=== PATIENT | male | born 1945 | race Caucasian/White ===

== ENCOUNTER → 2016-09-28 | Outpatient (CLI) | payer MEDICARE ==
[2016-09-28 09:06] LABS: EKG EKG PERFORMED
[2016-09-28 09:23] LABS: Basophils % (A) 0 %; CHCM 33.8; Eosinophils # (A) 0.2 k/uL (0-0.7); Eosinophils % (A) 3 %; HCT 39.2 % (39.0-53.0); HDW 2.69; Luc # (Auto) 0.17; Luc % (Auto) 3; Lymphocytes # (A) 1.4 k/uL (1.0-4.8); Lymphocytes % (A) 24 %; MCH 30.7 pg (25.0-35.0); MCHC 33.3 g/dL (31.0-37.0); MCV 92.3 fL (80.0-100.0); Monocytes # (A) 0.3 k/uL (0-1.0); Monocytes % (A) 5 %; Neutrophils # (A) 3.6 k/uL (1.3-7.7); Neutrophils % (A) 65 %; RBC 4.24 m/uL (4.30-5.90); RDW 13.2 % (11.5-15.5); WBC 5.6 k/uL (3.8-10.6); WBC (Perox) 5.27
[2016-09-28 09:24] LABS: INR 1.2 (<1.1); Partial Thromboplastin Time 24.8 sec (22.0-30.0); Prothrombin Time 11.9 sec (9.0-12.0)
[2016-09-28 09:33] LABS: ALT 27 U/L (21-72); AST 20 U/L (17-59); Alkaline Phosphatase 52 U/L (38-126); Anion Gap 13 mmol/L; Blood Urea Nitrogen 24 mg/dL (9-20); Calcium 9.2 mg/dL (8.4-10.2); Carbon Dioxide 22 mmol/L (22-30); Chloride 108 mmol/L (98-107); Cholesterol 185 mg/dL (<200); Glucose 134 mg/dL (74-99); HDL Cholesterol 37 mg/dL (40-60); Non-African American GFR(MDRD) >60 (>60 ml/min/1.73 sqM); Sodium 143 mmol/L (137-145); Total Bilirubin 0.7 mg/dL (0.2-1.3); Total Protein 7.7 g/dL (6.3-8.2); Triglycerides 144 mg/dL (<150)
[2016-09-28 09:49] LABS: Appearance,Urine Cloudy (Clear); Bilirubin,Urine Negative (Negative); Glucose,Urine (UA) Negative (Negative); Ketones,Urine Negative (Negative); Leukocyte Esterase,Urine Large (Negative); Mucus,Urine Rare /hpf; Nitrite,Urine Negative (Negative); PH, Urine 5.5 (5.0-8.0); Particle Count 1794; Protein,Urine Trace (Negative); RBC,Urine 15 /hpf (0-5); Specific Gravity,Urine 1.019 (1.001-1.035); UA Billing (MACRO vs. MICRO) MICRO; Urobilinogen,Urine <2.0 mg/dL (<2.0); WBC,Urine 126 /hpf (0-5)
== END | disposition home or self-care (01) ==
LOC: LABWHC1 08:48
PROVIDERS: ATTEND Internal Medicine Endocrinology, Diabetes & Metabolism
DX: Z01.812 Encounter for preprocedural laboratory examination (principal); Z79.01 Long term (current) use of anticoagulants
CPT/HCPCS: 36415; 80053; 80061; 81001; 82043; 85025; 85610; 85730; 87070; 93005

== ENCOUNTER 2016-10-11 05:53 | Inpatient (IN) | payer MEDICARE ==
[2016-10-04 08:35] VITALS: BMI 32.9
[~2016-10-11 05:53] MED LIST: ACETAMINOPHEN TAB 500 MG TAB PO ONE; DEXAMETHASONE SOD PHOSPHATE 10 MG/ML 1 ML VIAL IV ONE; HYDROmorphone 1 MG/ML 1 ML SYRINGE IVP PRN; MELOXICAM 7.5 MG TAB PO ONE; MIDAZOLAM 2 MG/2 ML VIAL IV PRN; ONDANSETRON 4 MG/2 ML VIAL IVP ONE; ROPIVACAINE 246.25 MG, EPINEPHrine 0.5 MG, KETOROLAC 30 MG, cloNIDine HCL/PF 80 MCG, WA... MISCELLANE ONE; TRANEXAMIC ACID 1,000 MG in SODIUM CHLORIDE 0.9% 100 ML IVPB ONE; ceFAZolin 2 GM in SODIUM CHLORIDE 0.9% 100 ML IVPB ONE
[2016-10-11 06:44] LABS: Glucose,Whole Blood 184 mg/dL (75-99)
[2016-10-11] MEDS: LACTATED RINGERS 1,000 ML IV SCH (06:53)
[2016-10-11] MEDS ORDERED: MIDAZOLAM 2 MG/2 ML VIAL IV ONE (07:05)
--- NOTE | 2016-10-11 07:25 | P.ONQ ---
Anesthesiology Proc Note - PNB - Peripheral Nerve Block Performed onq Time Out Performed: Yes Procedure Start Time: 07:05 Procedure Stop Time: 07:20 Indication: Acute Post-Operative Pain, Analgesia Sedation Type: Sedate with meaningful contact maintained Preparation: Sterile Prep Position: Supine Catheter: Indwelling Needle Types: On-Q Needle Size: 100mm (4") Needle Gauge: 18 Technique: Ultrasound Injectate: 0.5% Ropivacaine (see comment for volume) Blood Aspirated: No Pain Paresthesia on Injection Noted: No Resistance on Injection: Normal Events: Uneventful and Well Tolerated
[2016-10-11] MEDS ORDERED: ROPIVACAINE 1,100 MG, SODIUM CHLORIDE 0.9% 330 ML MISCELLANE PRN ×2 (07:26)
[2016-10-11] MEDS ORDERED: SODIUM CHLORIDE 0.9% 100 ML BAG ONE (07:49)
[2016-10-11] MEDS ORDERED: ceFAZolin 3,000 MG in SODIUM CHLORIDE 0.9% IRRIGATIO 3,000 ML IRRIGATION ONE (07:49)
[2016-10-11] MEDS ORDERED: PHENYLEPHRINE-0.9% NACL SYG 1 MG/10 ML SYRINGE ONE (07:49)
[2016-10-11] MEDS ORDERED: MIDAZOLAM 2 MG/2 ML VIAL ONE (07:49)
[2016-10-11] MEDS ORDERED: PROPOFOL 10 MG/ML 20 ML VIAL IV ONE (07:49)
[2016-10-11] MEDS ORDERED: fentaNYL (PF) 50 MCG/ML 2 ML AMP ONE (07:49)
[2016-10-11] MEDS ORDERED: TRANEXAMIC ACID 1,000 MG/10 ML VIAL ONE (07:49)
[2016-10-11] MEDS ORDERED: LACTATED RINGERS 1,000 ML IV ONE (08:30)
--- NOTE | 2016-10-11 09:21 | P.OP ---
Date of Procedure: 10/11/16 Preoperative Diagnosis: Severe osteoarthritis right knee Postoperative Diagnosis: Severe osteoarthritis right knee Procedure(s) Performed: Right total knee arthroplasty Implants: Stevens and Nephew Oxinium femoral component size 6, right Stevens & Nephew Mareille II right nonporous tibial baseplate size 6 Stevens & Nephew size 9 mm Legion XLPE high flexion articular insert, size 5-6 Stevens & Nephew Marielle II resurfacing patellar component, 35 mm All components were cemented using Abraham bone cement.. The articulation is ceramic on polyethylene. Anesthesia: spinal Surgeon: Sergio Mcneill Vendor Relationship Manager #1: Benita Calix Estimated Blood Loss (ml): 50 Pathology: other (Bone and cartilage) Condition: stable Disposition: PACU Indications for Procedure: After failure of conservative treatment we discussed the surgical and nonsurgical treatment options at length. Patient wishes to proceed with a total knee arthroplasty. Complications specific to this procedure were discussed at length, including but not limited to infection, bleeding, stiffness , and nerve injury. Patient is aware of all these complications and informed consent was obtained Operative Findings: The operative findings are consistent with severe osteoarthritis of the right knee. Description of Procedure: Patient was seen in the preoperative area consent was reviewed and operative site was marked with a skin marker. An adductor canal pain catheter was placed by anesthesia in the preoperative area. Patient was then brought to the operating room and given preoperative antibiotics intravenously. A spinal anesthetic was administered by the anesthesia department. A tourniquet was placed on the upper thigh and the lower extremity was prepped and draped in usual sterile fashion. A gram of transexamic acid was given. A universal timeout was then performed which confirmed the patient's name, surgical site, ALLERGIES, and consent. The lower extremity was then exsanguinated and tourniquet was inflated to 250 mmHg. A standard and anterior midline approach to the knee was performed. The skin and subcutaneous tissue was dissected down to the patellar tendon. A medial parapatellar arthrotomy was then performed. The knee was then extended, the patellar was everted, and the knee was again flexed. Anterior horns of both menisci were excised, and a release was performed to the posterior medial aspect of the knee. On gross visual inspection, there was complete loss of articular cartilage in the medial and patellofemoral joint spaces. There was also significant cartilage damage in the lateral compartment. There were multiple periarticular osteophytes which were then removed with a Ronguer. The femoral canal was then opened with the appropriate drill, and the intramedullary femoral cutting guide was then placed and set for 4 of valgus. The distal femoral cutting block was then pinned in place, and the distal femur was then cut. The cutting block was then removed and the cut was checked for flatness. Next, the sizing guide was then placed and set for 3 external rotation based off of the epicondylar axis and Whitesides line. After the femur was sized, the appropriate 4-in-1 cutting block was then pinned in place. The anterior condyles were cut without notching. The posterior and chamfer cuts were performed while protecting the collateral ligaments. The cutting block was then removed, and the femoral canal was plugged with autologous bone. Attention was then directed to the tibia. The remaining ACL was removed with a Ronguer, and the tibia was then gently subluxed forward with a large bent knee retractor. Any remaining menisci was excised. The posterior lateral corner was cauterized in order to cauterize the lateral geniculate artery. The extra medullary tibial cutting guide was then placed, set for the appropriate rotation , slope, and depth of resection. The proximal tibia cutting guide was then pinned in place. Proximal tibia was then cut and sized. Next trials were then placed with the appropriate-sized insert. The knee was able to fully extend and flex to 130 and was stable throughout all range of motion. The knee was then extended, patella everted. Patella was then measured, and then using an osteotomy guide, the patella was cut at the appropriate level. The patella was then measured and drilled and the patella trial was then placed. The knee was then taken through range of motion with the patella trial and the patella tracked normally. The knee was then extended patella trial was then removed and the patella was everted. Knee was then flexed and lug holes were drilled through the femoral trial and the femoral trial was then removed. The tibial was then exposed, and the tibial broach guide was then pinned in place after it was set for the appropriate rotation to allow for the most coverage without overhang. The tibia was then reamed and broached. The cut surfaces of bone were then irrigated with pulsatile lavage. The posterior structures were injected with the ropivacaine solution. The knee was also irrigated with Irrisept solution. The components were then opened, the cement was mixed, and the components were then cemented in place. The cement was allowed to harden with the knee in full extension. While the cement was hardening, the remaining soft tissues were then injected with a ropivacaine solution, which consisted of 246.25 mg of ropivacaine, 0.5 mg of epinephrine, 30 mg of Toradol, 80 g of clonidine, and 48.45 mL of sterile water, for a total of 100 mL of fluid injected. After the cemented hardened. The tourniquet was released, and hemostasis was obtained. A second gram of transexamic acid was given. The knee was again irrigated. The knee was again taken through range of motion and found to be stable throughout all range of motion of 0-130 , and the patella tracked normally. The fascia was then closed with #2 strata fix suture. The subcutaneous tissue was closed with 3-0 Vicryl and 3-0 strata fix. Dermabond tape was used for the skin and placed with the knee in flexion. The patient was placed in a sterile dressing. Patient was then transferred to recovery room in stable condition. The assistant store leader LA Nevarez was required due the complexity surgery and the need for a skilled hotel assistant manager. She assisted in positioning, draping , retraction, and closure of the wound.
[2016-10-11] MEDS ORDERED: HYDROmorphone 1 MG/ML 1 ML SYRINGE IVP PRN ×3 (09:37)
[2016-10-11] MEDS ORDERED: ONDANSETRON 4 MG/2 ML VIAL IVP PRN (09:37)
[2016-10-11] MEDS ORDERED: MAGNESIUM HYDROXIDE 2,400 MG/10 ML CUP PO PRN (09:37)
[2016-10-11] MEDS ORDERED: BISACODYL 10 MG SUPP RECTAL PRN (09:37)
[2016-10-11] MEDS ORDERED: hydrOXYzine PAMOATE 25 MG CAP PO PRN (09:37)
[2016-10-11] MEDS ORDERED: NALOXONE 0.4 MG/ML 1 ML VIAL IV PRN (09:37)
[2016-10-11] MEDS ORDERED: HYDROcodone/APAP 5-325MG 1 EACH TAB PO PRN (09:37)
[2016-10-11] MEDS ORDERED: DIAZEPAM 5 MG TAB PO PRN ×2 (09:37)
--- NOTE | 2016-10-11 10:22 | XR ---
EXAMINATION TYPE: XR knee limited RT DATE OF EXAM: 10/11/2016 10:17 AM COMPARISON: NONE TECHNIQUE: One view submitted HISTORY: Post op FINDINGS: There is a prosthetic knee in near anatomic alignment. There is soft tissue edema and emphysema. Va scular calcifications are noted. IMPRESSION: 1. Postoperative change. Appears in near-anatomic alignment
[2016-10-11] MEDS ORDERED: INSULIN LISPRO (humaLOG) 300 UNIT/3 ML VIAL SQ ONE (14:00)
[2016-10-11] MEDS ORDERED: SODIUM CHLORIDE 0.9% 1,000 ML IV ONE (14:00)
[2016-10-11 14:16] LABS: Glucose,Whole Blood 422 mg/dL (75-99)
[2016-10-11 15:55] LABS: Glucose,Whole Blood 392 mg/dL (75-99)
[2016-10-11 17:00] LABS: Glucose,Whole Blood 412 mg/dL (75-99)
[2016-10-11] MEDS: HYDROcodone/APAP 5-325MG 1 EACH TAB PO PRN (17:12)
[2016-10-11] MEDS: INSULIN GLARGINE 100 UNIT/ML 10 ML VIAL SQ ONE ×2 (17:13→17:42)
[2016-10-11] MEDS ORDERED: NITROGLYCERIN SL TABS 0.4 MG TAB SUBLINGUAL PRN (17:21)
[2016-10-11] MEDS ORDERED: INSULIN LISPRO (humaLOG) 300 UNIT/3 ML VIAL SQ SCH (17:30)
[2016-10-11] MEDS: ceFAZolin 2 GM in SODIUM CHLORIDE 0.9% 100 ML IVPB SCH (17:43)
[2016-10-11] MEDS ORDERED: INSULIN REGULAR 100 UNIT in SODIUM CHLORIDE 0.9% 100 ML IV SCH (17:45)
[2016-10-11 18:19] LABS: Glucose,Whole Blood 346 mg/dL (75-99)
[2016-10-11] MEDS: SODIUM CHLORIDE 0.9% 1,000 ML IV SCH (18:22)
[2016-10-11] MEDS: INSULIN LISPRO (humaLOG) 300 UNIT/3 ML VIAL SQ SCH (18:23)
[2016-10-11 18:33] LABS: ALT 28 U/L (21-72); AST 22 U/L (17-59); Alkaline Phosphatase 48 U/L (38-126); Anion Gap 14 mmol/L; Blood Urea Nitrogen 21 mg/dL (9-20); Calcium 9.3 mg/dL (8.4-10.2); Carbon Dioxide 16 mmol/L (22-30); Chloride 104 mmol/L (98-107); Glucose 335 mg/dL (74-99); Magnesium 1.6 mg/dL (1.6-2.3); Non-African American GFR(MDRD) >60 (>60 ml/min/1.73 sqM); Potassium 5.8 mmol/L (3.5-5.1); Sodium 134 mmol/L (137-145); Total Bilirubin 0.5 mg/dL (0.2-1.3); Total Protein 6.9 g/dL (6.3-8.2)
[2016-10-11 18:55] LABS: Basophils % (A) 0 %; CH 30.6; Eosinophils % (A) 0 %; HCT 36.4 % (39.0-53.0); HDW 2.54; Luc # (Auto) 0.08; Luc % (Auto) 1; Lymphocytes # (A) 0.6 k/uL (1.0-4.8); Lymphocytes % (A) 5 %; MCH 30.7 pg (25.0-35.0); MCHC 32.9 g/dL (31.0-37.0); MCV 93.3 fL (80.0-100.0); Mean Platelet Volume 8.5; Monocytes # (A) 0.4 k/uL (0-1.0); Monocytes % (A) 4 %; Neutrophils # (A) 10.2 k/uL (1.3-7.7); Neutrophils % (A) 91 %; RDW 13.1 % (11.5-15.5); WBC 11.3 k/uL (3.8-10.6); WBC (Perox) 11.75
[2016-10-11 20:54] LABS: Glucose,Whole Blood 246 mg/dL (75-99)
[2016-10-11] MEDS ORDERED: SENNOSIDES-DOCUSATE SODIUM 1 EACH TAB PO SCH (21:00)
[2016-10-11] MEDS ORDERED: PRAVASTATIN SODIUM 80 MG TAB PO SCH (21:00)
[2016-10-11] MEDS ORDERED: glipiZIDE 5 MG TAB PO SCH (21:00)
[2016-10-11] MEDS ORDERED: NON-FORMULARY DRUG (Sitagliptin Phos/Metformin Hcl [Janumet 50-1,000 Mg Tablet] 1 TAB) PO SCH (21:00)
[2016-10-11] MEDS ORDERED: INSULIN GLARGINE HUM REC ANLOG 36 UNIT SQ SCH (21:00)
[2016-10-11] MEDS ORDERED: CLOPIDOGREL 75 MG TAB PO SCH (21:00)
[2016-10-11 22:35] LABS: Glucose,Whole Blood 169 mg/dL (75-99)
[2016-10-12] MEDS: ceFAZolin 2 GM in SODIUM CHLORIDE 0.9% 100 ML IVPB SCH (00:14)
[2016-10-12] MEDS: SODIUM CHLORIDE 0.9% 1,000 ML IV SCH ×2 (00:15→14:23)
[2016-10-12 00:23] LABS: Glucose,Whole Blood 175 mg/dL (75-99)
[2016-10-12 02:32] LABS: Glucose,Whole Blood 155 mg/dL (75-99)
[2016-10-12 04:31] LABS: Glucose,Whole Blood 134 mg/dL (75-99)
[2016-10-12] MEDS: LACTATED RINGERS 1,000 ML IV SCH (05:15)
[2016-10-12] MEDS: HYDROcodone/APAP 5-325MG 1 EACH TAB PO PRN (06:00)
[2016-10-12 06:31] LABS: Glucose,Whole Blood 140 mg/dL (75-99)
[2016-10-12 07:10] LABS: Basophils % (A) 0 %; CH 30.7; CHCM 33.3; Eosinophils % (A) 0 %; HDW 2.57; HGB 10.8 gm/dL (13.0-17.5); Luc # (Auto) 0.33; Luc % (Auto) 4; Lymphocytes # (A) 1.5 k/uL (1.0-4.8); Lymphocytes % (A) 17 %; MCH 30.5 pg (25.0-35.0); MCHC 32.8 g/dL (31.0-37.0); MCV 92.9 fL (80.0-100.0); Mean Platelet Volume 8.2; Monocytes # (A) 0.6 k/uL (0-1.0); Monocytes % (A) 7 %; Neutrophils # (A) 6.4 k/uL (1.3-7.7); Neutrophils % (A) 72 %; RBC 3.56 m/uL (4.30-5.90); RDW 13.4 % (11.5-15.5); WBC 8.8 k/uL (3.8-10.6); WBC (Perox) 9.32
--- NOTE | 2016-10-12 07:10 | CONS ---
DATE OF CONSULTATION: DATE OF SERVICE: 10/11/2016 REASON FOR CONSULTATION: Advice regarding diabetes mellitus and other multiple medical issues requested by Dr. Mcneill. HISTORY OF PRESENT ILLNESS: This 71-year-old gentleman with a past medical history of CAD and stent, history of diabetes mellitus type 2, hearing problem, hyperlipidemia, DJD, sleep apnea, history of glaucoma, history of anxiety being followed by Dr. Stone in the outpatient setting underwent right total knee arthroplasty. The patient only took a half a dose of insulin last night. The patient apparently was taking at home, the home medications included Janumet 1 tablet p.o. b.i.d., glipizide 5 mg p.o. b.i.d., Lantus 36 subcu at bedtime also. The patient tolerated the procedure well, but blood sugar was elevated high. It was more than 400 in recovery and the patient received 12 units of and subsequently the blood sugar was 392 at 12:00, but on the blood sugar was found to be again elevated up to 412. There is no history of any fever, rigors. No history of headache, loss of consciousness. No history of seizures at this time. Blood sugar has been well controlled less than 200 at home according to the family. PAST MEDICAL HISTORY: History of diabetes mellitus, DJD, history of CAD with stent, history of eye disorder, hearing defects, hyperlipidemia, history of sleep apnea, history of glaucoma. history of anxiety. Medications prior to admission include home medications are: 1. Janumet 1 tablet p.o. b.i.d. . 2. Glucotrol 5 mg p.o. b.i.d. 3. Ocuvite with lutein 1 tablet p.o. b.i.d. 4. Bactrim one p.o. b.i.d. 5. Pravastatin 80 mg p.o. q.h.s. 6. Nitrostat 0.4 sublingual p.r.n. 7. Aleve 220 mg b.i.d. 8. Lopressor 25 mg p.o. daily. 9. Zestril 5 mg p.o. daily. 10. Lantus 36 units subcu q.h.s. 11. Folic acid 0.4 daily. 12. Vitamin B12, 1000 mcg p.o. daily. 13. Plavix 75 mg p.o. q.h.s. 14. Aspirin 162 mg p.o. daily. Allergies are CASHEW NUT and TREE NUT. FAMILY HISTORY: History of cancer, breast cancer, in the family. SOCIAL HISTORY: Previous history of smoking. No history of alcohol intake. REVIEW OF SYSTEMS: ENT: Diminished hearing, no diminished vision. CARDIOVASCULAR: No angina or palpitations. RESPIRATORY: No cough or hemoptysis. GI: No nausea. : No dysuria. NERVOUS SYSTEM: No numbness or weakness. ALLERGY/IMMUNOLOGY: No asthma or hayfever. MUSCULOSKELETAL: As mentioned earlier. HEMATOLOGY/ONCOLOGY: No history of anemia. ENDOCRINE: As mentioned earlier. CONSTITUTIONAL: As mentioned earlier. DERMATOLOGY: Negative. RHEUMATOLOGY: Negative. PSYCHIATRY: As mentioned earlier. PHYSICAL EXAMINATION: Patient is alert and oriented x3. Pulse is 95, blood pressure 129/64, respirations 16, temperature 97 degrees, pulse ox 97% on room air. HEENT: Conjunctivae normal. Oral mucosa moist. NECK: No jugular venous distention. No carotid bruit. No lymph node enlargement. CARDIOVASCULAR: S1 and S2, muffled. RESPIRATORY: Breath sounds diminished at the bases. No rhonchi, no crackles. ABDOMEN: Soft, obese, nontender. No mass palpable. LEGS: Status post right knee arthroplasty. NERVOUS SYSTEM: Higher function as mentioned. Moves all 4 limbs. No focal motor and sensory deficits. LYMPHATICS: No lymphadenopathy of neck, axillae or groin. SKIN: No ulcers, rashes or bleeding. Labs are at this time shows glucose is 412, otherwise, recent CBC within normal limits. Chloride 108. Magnesium was . LDL was 119. ASSESSMENT: 1. Status post right total knee arthroplasty. 2. Diabetes mellitus type 2, uncontrolled. 3. History of hypomagnesemia. 4. Hyperlipidemia. 5. History of coronary artery disease and stent. 6. Diabetes mellitus type 2. 7. Hearing disorder. 8. History of degenerative joint disease. 9. History of sleep apnea. 10. History of glaucoma. 11. History of hard of hearing. 12. History of brain aneurysm. 13. History of anxiety. 14. Remote history of nicotine dependence. RECOMMENDATIONS AND DISCUSSION: This 71-year-old gentleman who presented with multiple complex medical issues, we will monitor the patient closely. Continue the current medications and continue symptomatic treatment. Otherwise, at this time I would recommend initiate insulin drip for better and faster control of blood sugars and once the blood sugar is controlled, the patient can be transitioned to home dose of Lantus and also the p.o. medication including sitagliptin and metformin, which is a combination Janumet and as well as glipizide. Otherwise, continue with DVT prophylaxis and incentive spirometry. Will follow the patient closely with you and patient may be asked to follow with Dr. Stone closely after discharge. Thank you Dr. Mcneill for letting us participate in the care of this patient. SUSAN
[2016-10-12] MEDS ORDERED: INSULIN LISPRO (humaLOG) 300 UNIT/3 ML VIAL SQ SCH (07:30)
[2016-10-12 07:32] LABS: Anion Gap 11 mmol/L; Blood Urea Nitrogen 23 mg/dL (9-20); Calcium 9.1 mg/dL (8.4-10.2); Carbon Dioxide 20 mmol/L (22-30); Chloride 108 mmol/L (98-107); Glucose 132 mg/dL (74-99); Non-African American GFR(MDRD) 60 (>60 ml/min/1.73 sqM); Potassium 4.9 mmol/L (3.5-5.1); Sodium 139 mmol/L (137-145)
[2016-10-12 08:31] LABS: Glucose,Whole Blood 202 mg/dL (75-99)
[2016-10-12] MEDS ORDERED: LISINOPRIL 5 MG TAB PO SCH (09:00)
[2016-10-12] MEDS ORDERED: MELOXICAM 7.5 MG TAB PO SCH (09:00)
[2016-10-12] MEDS ORDERED: METOPROLOL TARTRATE 25 MG TAB PO SCH (09:00)
[2016-10-12] MEDS ORDERED: ASPIRIN 81 MG CHEW PO SCH (09:00)
--- NOTE | 2016-10-12 09:28 | P.DS ---
Providers Date of admission: 10/11/16 05:53 Expected date of discharge: 10/12/16 Attending physician: Sergio Mcneill Consults: 10/11/16 09:37 Consult Physician Routine Consulting Provider: Dorian Bauman Consult Reason/Comments: medical management Do you want consulting provider notified?: Yes Primary care physician: Natalia Stone - Discharge Diagnosis(es) (1) Status post right knee replacement Status: Acute (2) Primary osteoarthritis of right knee Status: Acute Hospital Course: This is a pleasant 71-year-old gentleman last seen in our office with complaints of right knee pain. Patient has known history of degenerative arthritis of the right knee and presented to discuss options. After discussion and consideration, patient elected to proceed with a total knee arthroplasty of the right knee. The patient was seen preoperatively and medically cleared for surgery by his primary care physician. The patient was admitted to [facility] and underwent right total knee arthroplasty with Dr. Sergio Mcneill. The procedure was performed without complications or sequelae. The patient has done well postoperatively. The patient was seen and evaluated at bedside today with Dr. Mcneill and denies any new complaints. Pain is reasonably controlled. Dressing is clean dry and intact. Incision looks fine with no erythema or active drainage. Calf is soft and nontender. The patient has full foot and ankle motion without difficulty. Patient's right lower extremity is neurovascular intact. Patient is orthopedically stable for discharge to home today when he is cleared medically. Patient was on Plavix preoperatively we have asked for recommendations from medicine in regards to DVT prophylaxis for discharge. Appreciate input from medicine. Pertinent Studies: Laboratory Tests 10/12/16 10/12/16 06:38 06:38 WBC 8.8 RBC 3.56 L Hgb 10.8 L Hct 33.0 L Sodium 139 Potassium 4.9 Chloride 108 H Carbon Dioxide 20 L Anion Gap 11 BUN 23 H Creatinine 1.20 Est GFR (MDRD) Af Amer >60 Est GFR (MDRD) Non-Af 60 Glucose 132 H Patient Condition at Discharge: Good Plan - Discharge Summary New Discharge Prescriptions: Aspirin EC [Ecotrin Low Dose] 81 mg PO DAILY #14 tablet. Hydrocodone/Acetaminophen [[place] 5-325] 1 - 2 each PO Q6HR PRN #90 tab PRN Reason: Pain Pantoprazole Sodium [Protonix] 40 mg PO DAILY #14 tablet. Rivaroxaban [Xarelto] 10 mg PO DAILY #14 tab Sennosides-Docusate Sodium [Senokot-S] 2 tab PO DAILY #60 tablet glipiZIDE [Glucotrol] 5 mg PO AC-BID #1 tab sitaGLIPtin PHOS/metFORMIN HCL [Janumet 50-1,000 mg Tablet] 1 each PO DAILY #1 tab Discharge Medication List Vit A,C & E/Lutein/Minerals [Ocuvite with Lutein Tablet] 1 tab PO BID 09/09/15 [ History] Metoprolol Tartrate [Lopressor] 25 mg PO DAILY #30 tab 09/11/15 [Rx] Clopidogrel Bisulfate [Plavix] 75 mg PO HS 10/04/16 [History] Cyanocobalamin (Vitamin B-12) [Vitamin B-12] 1,000 mcg PO DAILY 10/04/16 [ History] Folic Acid 0.4 mg PO DAILY 10/04/16 [History] Lisinopril [Zestril] 5 mg PO DAILY 10/04/16 [History] Nitroglycerin Sl Tabs [Nitrostat] 0.4 mg SUBLINGUAL DIRECTED PRN 10/04/16 [ History] Pravastatin Sodium 80 mg PO HS 10/04/16 [History] Aspirin EC [Ecotrin Low Dose] 81 mg PO DAILY #14 tablet. 10/12/16 [Rx] Hydrocodone/Acetaminophen [[place] 5-325] 1 - 2 each PO Q6HR PRN #90 tab 10/12/16 [Rx] Insulin Glargine,Hum.rec.anlog [Lantus Solostar] 36 unit SQ HS #0 10/12/16 [Rx] Pantoprazole Sodium [Protonix] 40 mg PO DAILY #14 tablet. 10/12/16 [Rx] Rivaroxaban [Xarelto] 10 mg PO DAILY #14 tab 10/12/16 [Rx] Sennosides-Docusate Sodium [Senokot-S] 2 tab PO DAILY #60 tablet 10/12/16 [Rx] glipiZIDE [Glucotrol] 5 mg PO AC-BID #1 tab 10/12/16 [Rx] sitaGLIPtin PHOS/metFORMIN HCL [Janumet 50-1,000 mg Tablet] 1 each PO DAILY #1 tab 10/12/16 [Rx] Follow up Appointment(s)/Referral(s): [facility], [NON-STAFF] - 1 Week Natalia Stone MD [Primary Care Provider] - 10/19/16 12:00 pm Sergio Mcneill DO [Doctor of Osteopathic Medicine] - 10/26/16 1:20 pm Ambulatory/Diagnostic Orders: Continuous Passive Motion (CPM) Machine [DME.AMB1] Location: Determined By Patient Activity/Diet/Wound Care/Special Instructions: Anticoagulation: HGBA1C pending Weightbearing as tolerated with a walker CPM daily Daily dressing changes, keep incision clean and dry Anticoagulation as directed by medicine. [facility] with questions or concerns [phone] Diet: Consist. Carb Accu cheks achs, maintain log, take to F/U visit with PCP for further rec. Call [place] when you get home to deliver your CPM machine - Discharge Disposition: HOME WITH HOME HEALTH SERVICES
[2016-10-12] MEDS: INSULIN LISPRO (humaLOG) 300 UNIT/3 ML VIAL SQ SCH ×2 (10:29→14:46)
[2016-10-12] MEDS ORDERED: INSULIN GLARGINE 100 UNIT/ML 10 ML VIAL SQ STA (10:41)
[2016-10-12 11:31] LABS: Glucose,Whole Blood 250 mg/dL (75-99)
--- NOTE | 2016-10-12 11:58 | P.PN ---
Progress Note - Text The patient is status post right adductor canal catheter placement. The catheter was placed for postoperative pain control, status post total right arthroplasty. Ropivacaine 0.2% is infusing at 8 mLs per hour. The patient has no complaints of right lower extremity numbness or weakness. Patient's VAS score is 0 -10. Assessment: Patient's adductor canal catheter is in place and working appropriately. Plan: continue infusion and adjust it as needed.
[2016-10-12] MEDS ORDERED: CYANOCOBALAMIN 500 MCG TAB PO SCH (12:00)
[2016-10-12] MEDS ORDERED: FOLIC ACID 1 MG TAB PO SCH (12:00)
[2016-10-12 12:01] LABS: Hemoglobin A1C 8.3 % (4.2-6.1)
[2016-10-12 12:26] VITALS: BP 100/57; PULSE 63; RESP 14; TEMP 97.5
--- NOTE | 2016-10-12 14:01 | PN ---
DATE OF SERVICE: 10/12/2016 This 71-year-old gentleman admitted after right total knee arthroplasty, also also. No chest pain or palpitation. No fever, sugars are much better controlled at this time. No fever. On exam, alert and oriented x3. Pulse 63, blood pressure 100/56, respirations 14, temperature is 97.4, pulse ox 96% on room air. HEENT: Conjunctivae normal, oral mucosa moist. Neck is no jugular venous distension, no carotid bruit. CARDIOVASCULAR: S1 and S2, muffled. No S3, S4. RESPIRATORY: Breath sounds diminished at the bases, no rhonchi, no crackles. Abdomen is soft, nontender. EXTREMITIES: Legs status post right knee arthroplasty. NERVOUS SYSTEM: No foal deficits. LABS: Hemoglobin 10.8 and glucose 132. ASSESSMENT: 1. Status post right total knee arthroplasty. 2. Diabetes mellitus type 2, uncontrolled. 3. History of hypomagnesemia. 4. Hyperlipidemia. 5. History of coronary artery disease and stent. 6. Diabetes mellitus type 2. 7. Hearing disorder. 8. History of degenerative joint disease. 9. History of sleep apnea. 10. History of glaucoma. 11. History of hard of hearing. 12. History of brain aneurysm. 13. History of anxiety. 14. Remote history of nicotine dependence. RECOMMENDATION AND DISCUSSION: In this 71-year-old gentleman who presented with multiple complex medical issues, will monitor the patient closely, continue with the current medications, continue with the symptomatic treatment. Otherwise, at this time I would recommend DVT prophylaxis, aspirin, Plavix. Prognosis guarded because of multiple complex medical issues. Further recommendations to follow. Follow closely with Dr. Stone. SUSAN
[2016-10-12 14:39] LABS: Glucose,Whole Blood 219 mg/dL (75-99)
== END 2016-10-12 15:20 | disposition home health service (06) | DRG 470 ==
LOC: 2ORMAIN 05:53 → 3SUR 13:51
PROVIDERS: ADMIT Orthopaedic Surgery; ATTEND Orthopaedic Surgery
PROC: 0SRC0J9 Replacement of Right Knee Joint with Synthetic Substitute, Cemented, Open Approach (ICD-10-PCS; principal; 2016-10-11 07:30)
DX: M17.11 Unilateral primary osteoarthritis, right knee (principal); E11.65 Type 2 diabetes mellitus with hyperglycemia; E78.5 Hyperlipidemia, unspecified; G47.30 Sleep apnea, unspecified; H40.9 Unspecified glaucoma; H91.90 Unspecified hearing loss, unspecified ear; M19.90 Unspecified osteoarthritis, unspecified site; I25.10 Atherosclerotic heart disease of native coronary artery without angina pectoris; Z87.891 Personal history of nicotine dependence; Z91.018 Allergy to other foods; Z86.59 Personal history of other mental and behavioral disorders; Z95.5 Presence of coronary angioplasty implant and graft; Z79.84 Long term (current) use of oral hypoglycemic drugs; Z79.02 Long term (current) use of antithrombotics/antiplatelets; Z79.82 Long term (current) use of aspirin; Z79.4 Long term (current) use of insulin; Z79.899 Other long term (current) drug therapy
CPT/HCPCS: 80048; 80053; 83036; 83735; 85025; 88300

== ENCOUNTER → 2019-01-31 | Outpatient (CLI) | payer MEDICARE ==
--- NOTE | 2019-01-31 11:04 | XR ---
EXAMINATION TYPE: XR wrist complete LT DATE OF EXAM: 01/31/2019 COMPARISON: NONE HISTORY: Pain TECHNIQUE: 3 views submitted. FINDINGS: There is intra-articular fracture distal radius with mild displacement. Previous ulnar styloid injury noted. Assessment the scaphoid is limited suspect that there may have been previous fracture to the scaphoid. Could not exclude a subacute injury. Arthropathy of the first carpal metacarpal joint. IMPRESSION: 1. There is an intra-articular fracture of the distal radius which appears acute. 2. Cannot exclude a scaphoid fracture. Recommend CT scan. A Yellow level critical message alert has been initiated for Natalia Stone MD via the [employer] Critical Results System on 01/31/2019 11:02 AM. This message alert has been sent to Natalia Stone MD via the preferences provided by the clinician for the receipt of Radiology Critical Findings. Message ID [id number]. MTDD
== END | disposition home or self-care (01) ==
LOC: RADXRYALE 10:44
PROVIDERS: ATTEND Internal Medicine
DX: S52.572A Other intraarticular fracture of lower end of left radius, initial encounter for closed fracture (principal)

== ENCOUNTER → 2019-10-19 | Outpatient (CLI) | payer MEDICARE ==
[2019-10-19 19:08] LABS: African American GFR (CKD) 56.6 (60.0-200.0); Anion Gap 14.5 mmol/L (4.00-12.00); BUN/Creat Ratio 24.29 Ratio (12.00-20.00); Calcium 9.5 mg/dL (8.7-10.3); Carbon Dioxide 21.5 mmol/L (21.6-31.8); Non-African American GFR(CKD) 48.8 (60.0-200.0); Potassium 4.8 mmol/L (3.5-5.5)
== END | disposition home or self-care (01) ==
LOC: LABWHC1 12:15
PROVIDERS: ATTEND Anesthesiology
DX: Z01.818 Encounter for other preprocedural examination (principal)
CPT/HCPCS: 36415; 80048

== ENCOUNTER 2020-01-14 09:05 | Inpatient (IN) | payer MEDICARE ==
[2020-01-14] MEDS ORDERED: SODIUM CHLORIDE 0.9% 2,000 ML IV ONE (09:11)
[2020-01-14 09:31] LABS: VBG PH 7.45 (7.31-7.41)
[2020-01-14 09:31] LABS: Glucose,Whole Blood 330 mg/dL (75-99)
[2020-01-14 09:32] LABS: Basophils % (A) 0 %; Eosinophils # (A) 0.1 k/uL (0-0.7); Eosinophils % (A) 2 %; HCT 42.9 % (39.0-53.0); HGB 13.9 gm/dL (13.0-17.5); Lymphocytes # (A) 1.1 k/uL (1.0-4.8); Lymphocytes % (A) 13 %; MCHC 32.4 g/dL (31.0-37.0); MCV 92.7 fL (80.0-100.0); Mean Platelet Volume 7.3; Monocytes # (A) 0.4 k/uL (0-1.0); Monocytes % (A) 5 %; Neutrophils # (A) 6.8 k/uL (1.3-7.7); Neutrophils % (A) 78 %; Platelet Count 197 k/uL (150-450); RBC 4.63 m/uL (4.30-5.90); WBC 8.7 k/uL (3.8-10.6)
[2020-01-14 09:40] LABS: ALT 25 U/L (4-49); AST 21 U/L (17-59); African American GFR (CKD) >90 (>60 ml/min/1.73 sqM); Albumin 3.6 g/dL (3.5-5.0); Alkaline Phosphatase 68 U/L (38-126); Anion Gap 11 mmol/L; Blood Urea Nitrogen 28 mg/dL (9-20); Calcium 9.1 mg/dL (8.4-10.2); Carbon Dioxide 17 mmol/L (22-30); Chloride 107 mmol/L (98-107); Glucose 330 mg/dL (74-99); Magnesium 1.9 mg/dL (1.6-2.3); Non-African American GFR(CKD) 80 (>60 ml/min/1.73 sqM); Potassium 4.4 mmol/L (3.5-5.1); Sodium 135 mmol/L (137-145); Total Bilirubin 0.5 mg/dL (0.2-1.3); Total Protein 6.7 g/dL (6.3-8.2)
--- NOTE | 2020-01-14 09:42 | XR ---
EXAMINATION TYPE: XR chest 2V DATE OF EXAM: 01/14/2020 COMPARISON: Chest x-ray September 09, 2015. HISTORY: Tachycardia and shortness of breath. TECHNIQUE: Frontal and lateral views of the chest are obtained. FINDINGS: There is some chronic frontal changes bilaterally without suspicious new focal air space o pacity, pleural effusion, or pneumothorax seen. The cardiac silhouette size remains mildly enlarged. Multilevel spurring in the thoracic spine is redemonstrated. IMPRESSION: Chronic changes and cardiomegaly without acute pulmonary process.
[2020-01-14 09:54] LABS: Appearance,Urine Turbid (Clear); Bilirubin,Urine Negative (Negative); Blood,Urine Small (Negative); Color,Urine Yellow; Glucose,Urine (UA) 4+ (Negative); Leukocyte Esterase,Urine Large (Negative); Nitrite,Urine Negative (Negative); PH, Urine 5.5 (5.0-8.0); Protein,Urine 1+ (Negative); Specific Gravity,Urine 1.024 (1.001-1.035); Urobilinogen,Urine <2.0 mg/dL (<2.0)
[2020-01-14 09:55] LABS: Bacteria,Urine Rare /hpf; Budding Yeast,Urine Few /hpf; Hyaline Casts,Urine 5 /lpf (0-2); Hyphae Yeast, Urine Rare /hpf; RBC,Urine 34 /hpf (0-5); WBC,Urine >182 /hpf (0-5)
[2020-01-14 09:57] LABS: Ketones,Urine 2+ (Negative)
[2020-01-14] MEDS ORDERED: cefTRIAXone IN SWFI 1,000 MG/10 ML SYRINGE IVP STA (10:07)
--- NOTE | 2020-01-14 10:10 | ED ---
Arrhythmia/Palpitations HPI - General Chief Complaint: Arrhythmia/Palpitations Stated Complaint: tachycardia/High blood sugar Time Seen by Provider: 01/14/20 09:08 Source: patient, EMS, RN notes reviewed Mode of arrival: EMS Limitations: no limitations - History of Present Illness Initial Comments: This is a 74-year-old male presents emergency Department chief complaint palpitations. Patient states he woke up around 2:30 with his heart racing. He states he has not settled down. Patient states his blood sugar is elevated this morning EMS reports blood sugar 502 though patient states he took his insulin and oral diabetic medications prior to coming. Patient denies any chest pain or shortness breath. Patient does state his breathing very fast low. Patient has no abdominal complaints has nausea vomiting no diarrhea and no headache it is no recent fevers or chills. Patient has no history of A. fib no history of cardiac arrhythmias. - Related Data Home Medications Medication Instructions Recorded Confirmed Cyanocobalamin (Vitamin B-12) 1,000 mcg PO DAILY 10/04/16 01/14/20 [Vitamin B-12] Lisinopril [Zestril] 5 mg PO DAILY 10/04/16 01/14/20 Nitroglycerin Sl Tabs [Nitrostat] 0.4 mg SUBLINGUAL DIRECTED PRN 10/04/16 01/14/20 Aspirin EC [Ecotrin Low Dose] 162 mg PO DAILY 01/14/20 01/14/20 Bicalutamide [Casodex] 50 mg PO DAILY 01/14/20 01/14/20 Canagliflozin [Invokana] 300 mg PO DAILY 01/14/20 01/14/20 Docusate [Colace] 100 mg PO DAILY 01/14/20 01/14/20 Focus Factor Supplement 1 tab PO DAILY 01/14/20 01/14/20 Insulin Glargine,Hum.rec.anlog 30 unit SQ HS 01/14/20 01/14/20 [Lantus Solostar] Latanoprost/Pf [Latanoprost 0.005% 1 drop BOTH EYES HS 01/14/20 01/14/20 Eye Drop] Liraglutide [Victoza 3-Gonzales] 1.8 mg SQ DAILY 01/14/20 01/14/20 Metoprolol Tartrate [Lopressor] 25 mg PO BID 01/14/20 01/14/20 Pioglitazone HCl 15 mg PO DAILY 01/14/20 01/14/20 Rosuvastatin Calcium 20 mg PO DAILY 01/14/20 01/14/20 Tamsulosin HCl [Flomax] 0.4 mg PO DAILY 01/14/20 01/14/20 Timolol 0.5% Ophth Soln [Timoptic 1 drop BOTH EYES DAILY 01/14/20 01/14/20 0.5% Ophth Soln] metFORMIN HCL 1,000 mg PO BID 01/14/20 01/14/20 Allergies Allergy/AdvReac Type Severity Reaction Status Date / Time cashew nut Allergy Severe Anaphylaxis Verified 01/14/20 10:32 tree nut Allergy Severe Anaphylaxis Verified 01/14/20 10:32 Review of Systems ROS Statement: Those systems with pertinent positive or pertinent negative responses have been documented in the HPI. ROS Other: All systems not noted in ROS Statement are negative. Past Medical History Past Medical History: Diabetes Mellitus, Eye Disorder, Hearing Disorder / Deafness, Hyperlipidemia, Osteoarthritis (OA), Sleep Apnea/CPAP/BIPAP Additional Past Medical History / Comment(s): glaucoma, [place], on bactrim for UTI, has brain aneurysm- dr watching, uses a cane, AFIB History of Any Multi-Drug Resistant Organisms: None Reported Past Surgical History: Ear Surgery, Hernia Repair, Orthopedic Surgery Additional Past Surgical History / Comment(s): 05/27/15 L mastoidectomy in which the ear was removed and holes in bone were cemented and a bone graft from his leg used-done at [facility], HERNIA SURG bilateral inguinal and umbilical, LT KNEE arthroscopy and then L total knee arthroplasty, bilat EAR TUBE, colonoscopy, vasectomy. Past Anesthesia/Blood Transfusion Reactions: No Reported Reaction Date of Last Stent Placement:: 08/2015 Past Psychological History: No Psychological Hx Reported Smoking Status: Former smoker Past Alcohol Use History: None Reported Past Drug Use History: None Reported - Past Family History Mother Family Medical History: Cancer Additional Family Medical History / Comment(s): breast Brother(s) Family Medical History: Cancer Additional Family Medical History / Comment(s): Wegeners granulomatosis, prostate General Exam Limitations: no limitations General appearance: alert, in distress (Mild) Head exam: Present: atraumatic, normocephalic, normal inspection Eye exam: Present: normal appearance, PERRL, EOMI. Absent: scleral icterus, conjunctival injection, periorbital swelling ENT exam: Present: normal exam, normal oropharynx, mucous membranes moist Neck exam: Present: normal inspection, full ROM. Absent: tenderness, meningismus, lymphadenopathy Respiratory exam: Present: normal lung sounds bilaterally, respiratory distress (mild, tachypnea). Absent: wheezes, rales, rhonchi, stridor Cardiovascular Exam: Present: normal rhythm, tachycardia, normal heart sounds. Absent: systolic murmur, diastolic murmur, rubs, gallop, clicks GI/Abdominal exam: Present: soft, normal bowel sounds. Absent: distended, tend erness, guarding, rebound, rigid Back exam: Absent: CVA tenderness (R), CVA tenderness (L) Neurological exam: Present: alert, oriented X3 Skin exam: Present: warm, dry, intact, normal color. Absent: rash Course Vital Signs 01/14/20 01/14/20 01/14/20 09:07 09:15 10:29 Temperature 98.1 F Pulse Rate 152 H 144 H Respiratory 20 18 18 Rate Blood Pressure 112/78 121/87 O2 Sat by Pulse 99 100 Oximetry EKG Findings - EKG Comments: EKG Findings:: EKG performed at 9:10 SVT rate 150 QRS 84 QT/QTC 302/477. Repeat EKG at 1110 SVT rate of 139 QRS 70 QTC is QTC 320/486. EKG after adenosine at 1137 sinus rhythm with a rate of 73 MT 188 QRS 84 QT/QTC 394/434 Medical Decision Making - Medical Decision Making 74-year-old male presented for tachycardia, hyperglycemia. Patient on a DKA, a CT. Patient did receive adenosine 6mg, normal sinus at this time. Patiently admitted for insulin, IV fluids and cardiology evaluation. - Lab Data Result diagrams: 01/14/20 09:15 01/14/20 09:15 Lab Results 01/14/20 01/14/20 01/14/20 Range/Units 09:13 09:14 09:15 WBC 8.7 (3.8-10.6) k/uL RBC 4.63 (4.30-5.90) m/uL Hgb 13.9 (13.0-17.5) gm/dL Hct 42.9 (39.0-53.0) % MCV 92.7 (80.0-100.0) fL MCH 30.0 (25.0-35.0) pg MCHC 32.4 (31.0-37.0) g/dL RDW 13.0 (11.5-15.5) % Plt Count 197 (150-450) k/uL Neutrophils % 78 % Lymphocytes % 13 % Monocytes % 5 % Eosinophils % 2 % Basophils % 0 % Neutrophils # 6.8 (1.3-7.7) k/uL Lymphocytes # 1.1 (1.0-4.8) k/uL Monocytes # 0.4 (0-1.0) k/uL Eosinophils # 0.1 (0-0.7) k/uL Basophils # 0.0 (0-0.2) k/uL VBG pH (7.31-7.41) VBG pCO2 (37-51) mmHg VBG HCO3 (24-28) mmol/L Sodium (137-145) mmol/L Potassium (3.5-5.1) mmol/L Chloride (98-107) mmol/L Carbon Dioxide (22-30) mmol/L Anion Gap mmol/L BUN (9-20) mg/dL Creatinine (0.66-1.25) mg/dL Est GFR (CKD-EPI)AfAm (>60 ml/min/1.73 sqM) Est GFR (CKD-EPI)NonAf (>60 ml/min/1.73 sqM) Glucose (74-99) mg/dL POC Glucose (mg/dL) 330 H (75-99) mg/dL POC Glu Meter Tester Polyphase ID Laila Walter Plasma Lactic Acid Anand (0.7-2.0) mmol/L Calcium (8.4-10.2) mg/dL Magnesium (1.6-2.3) mg/dL Total Bilirubin (0.2-1.3) mg/dL AST (17-59) U/L ALT (4-49) U/L Alkaline Phosphatase (38-126) U/L Troponin I (0.000-0.034) ng/mL Total Protein (6.3-8.2) g/dL Albumin (3.5-5.0) g/dL Lipase (23-300) U/L Urine Color Yellow Urine Appearance Turbid (Clear) Urine pH 5.5 (5.0-8.0) Ur Specific Reubens 1.024 (1.001-1.035) Urine Protein 1+ H (Negative) Urine Glucose (UA) 4+ H (Negative) Urine Ketones 2+ H (Negative) Urine Blood Small H (Negative) Urine Nitrite Negative (Negative) Urine Bilirubin Negative (Negative) Urine Urobilinogen <2.0 (<2.0) mg/dL Ur Leukocyte Esterase Large H (Negative) Urine RBC 34 H (0-5) /hpf Urine WBC >182 H (0-5) /hpf Urine WBC Clumps Many H (None) /hpf Urine Bacteria Rare H (None) /hpf Hyaline Casts 5 H (0-2) /lpf Ur Yeast w Hyphae Rare (None) /hpf Urine Yeast (Budding) Few H (None) /hpf Acetone, Qual (Negative) 01/14/20 01/14/20 01/14/20 Range/Units 09:15 09:15 09:15 WBC (3.8-10.6) k/uL RBC (4.30-5.90) m/uL Hgb (13.0-17.5) gm/dL Hct (39.0-53.0) % MCV (80.0-100.0) fL MCH (25.0-35.0) pg MCHC (31.0-37.0) g/dL RDW (11.5-15.5) % Plt Count (150-450) k/uL Neutrophils % % Lymphocytes % % Monocytes % % Eosinophils % % Basophils % % Neutrophils # (1.3-7.7) k/uL Lymphocytes # (1.0-4.8) k/uL Monocytes # (0-1.0) k/uL Eosinophils # (0-0.7) k/uL Basophils # (0-0.2) k/uL VBG pH (7.31-7.41) VBG pCO2 (37-51) mmHg VBG HCO3 (24-28) mmol/L Sodium 135 L (137-145) mmol/L Potassium 4.4 (3.5-5.1) mmol/L Chloride 107 (98-107) mmol/L Carbon Dioxide 17 L (22-30) mmol/L Anion Gap 11 mmol/L BUN 28 H (9-20) mg/dL Creatinine 0.93 (0.66-1.25) mg/dL Est GFR (CKD-EPI)AfAm >90 (>60 ml/min/1.73 sqM) Est GFR (CKD-EPI)NonAf 80 (>60 ml/min/1.73 sqM) Glucose 330 H (74-99) mg/dL POC Glucose (mg/dL) (75-99) mg/dL POC Glu Meter Tester Polyphase ID Plasma Lactic Acid Anand 2.8 H* (0.7-2.0) mmol/L Calcium 9.1 (8.4-10.2) mg/dL Magnesium 1.9 (1.6-2.3) mg/dL Total Bilirubin 0.5 (0.2-1.3) mg/dL AST 21 (17-59) U/L ALT 25 (4-49) U/L Alkaline Phosphatase 68 (38-126) U/L Troponin I <0.012 (0.000-0.034) ng/mL Total Protein 6.7 (6.3-8.2) g/dL Albumin 3.6 (3.5-5.0) g/dL Lipase 307 H (23-300) U/L Urine Color Urine Appearance (Clear) Urine pH (5.0-8.0) Ur Specific Reubens (1.001-1.035) Urine Protein (Negative) Urine Glucose (UA) (Negative) Urine Ketones (Negative) Urine Blood (Negative) Urine Nitrite (Negative) Urine Bilirubin (Negative) Urine Urobilinogen (<2.0) mg/dL Ur Leukocyte Esterase (Negative) Urine RBC (0-5) /hpf Urine WBC (0-5) /hpf Urine WBC Clumps (None) /hpf Urine Bacteria (None) /hpf Hyaline Casts (0-2) /lpf Ur Yeast w Hyphae (None) /hpf Urine Yeast (Budding) (None) /hpf Acetone, Qual Positive (Negative) 01/14/20 Range/Units 09:15 WBC (3.8-10.6) k/uL RBC (4.30-5.90) m/uL Hgb (13.0-17.5) gm/dL Hct (39.0-53.0) % MCV (80.0-100.0) fL MCH (25.0-35.0) pg MCHC (31.0-37.0) g/dL RDW (11.5-15.5) % Plt Count (150-450) k/uL Neutrophils % % Lymphocytes % % Monocytes % % Eosinophils % % Basophils % % Neutrophils # (1.3-7.7) k/uL Lymphocytes # (1.0-4.8) k/uL Monocytes # (0-1.0) k/uL Eosinophils # (0-0.7) k/uL Basophils # (0-0.2) k/uL VBG pH 7.45 H (7.31-7.41) VBG pCO2 28 L (37-51) mmHg VBG HCO3 19 L (24-28) mmol/L Sodium (137-145) mmol/L Potassium (3.5-5.1) mmol/L Chloride (98-107) mmol/L Carbon Dioxide (22-30) mmol/L Anion Gap mmol/L BUN (9-20) mg/dL Creatinine (0.66-1.25) mg/dL Est GFR (CKD-EPI)AfAm (>60 ml/min/1.73 sqM) Est GFR (CKD-EPI)NonAf (>60 ml/min/1.73 sqM) Glucose (74-99) mg/dL POC Glucose (mg/dL) (75-99) mg/dL POC Glu Meter Tester Polyphase ID Plasma Lactic Acid Anand (0.7-2.0) mmol/L Calcium (8.4-10.2) mg/dL Magnesium (1.6-2.3) mg/dL Total Bilirubin (0.2-1.3) mg/dL AST (17-59) U/L ALT (4-49) U/L Alkaline Phosphatase (38-126) U/L Troponin I (0.000-0.034) ng/mL Total Protein (6.3-8.2) g/dL Albumin (3.5-5.0) g/dL Lipase (23-300) U/L Urine Color Urine Appearance (Clear) Urine pH (5.0-8.0) Ur Specific Reubens (1.001-1.035) Urine Protein (Negative) Urine Glucose (UA) (Negative) Urine Ketones (Negative) Urine Blood (Negative) Urine Nitrite (Negative) Urine Bilirubin (Negative) Urine Urobilinogen (<2.0) mg/dL Ur Leukocyte Esterase (Negative) Urine RBC (0-5) /hpf Urine WBC (0-5) /hpf Urine WBC Clumps (None) /hpf Urine Bacteria (None) /hpf Hyaline Casts (0-2) /lpf Ur Yeast w Hyphae (None) /hpf Urine Yeast (Budding) (None) /hpf Acetone, Qual (Negative) Critical Care Time Critical Care Time: Yes Total Critical Care Time: 35 Critical Care Time: Total of 35 minutes of critical care time refused initial event patient, discussing history with family members patient and EMS. Patient had labs EKG and chest x-ray. Patient found have urinary tract infection most likely causing his hyperglycemia, DKA. Bicarb was 17. Patient's blood sugar currently is to 52 after 2 L of fluid was started on insulin drip, D5 half with potassium. Patient also found to be in SVT was given adenosine 6 mg well on pecan huller and did convert to normal sinus rhythm. Patient will be admitted for cardiology evaluation, further medical management. Case discussed with Dr. Oseguera Disposition Clinical Impression: DKA (diabetic ketoacidoses), UTI (urinary tract infection), SVT (supraventricular tachycardia) Disposition: ADMITTED IP TO THIS HOSP Condition: Critical Referrals: Natalia Stone MD [Primary Care Provider] - 1-2 days
[2020-01-14] MEDS ORDERED: SODIUM CHLORIDE 0.9% 1,000 ML IV SCH ×2 (11:00→12:00)
[2020-01-14] MEDS ORDERED: ADENOSINE 3 MG/ML 2 ML VIAL IVP STA (11:23)
[2020-01-14 11:49] LABS: Glucose,Whole Blood 252 mg/dL (75-99)
[2020-01-14] MEDS ORDERED: D5-0.45% NACL WITH KCL 20MEQ/L 1,000 ML IV SCH (12:00)
[2020-01-14] MEDS ORDERED: INSULIN REGULAR 100 UNIT in SODIUM CHLORIDE 0.9% 100 ML IV SCH (12:00)
[2020-01-14 13:22] LABS: Glucose,Whole Blood 172 mg/dL (75-99)
[2020-01-14] MEDS ORDERED: NITROGLYCERIN SL TABS 0.4 MG TAB SUBLINGUAL PRN (13:46)
[2020-01-14] MEDS ORDERED: INSULIN DETEMIR (LEVEMIR) 100 UNIT/ML SYR SQ STA (14:26)
--- NOTE | 2020-01-14 14:46 | P.HPIM ---
History of Present Illness This pleasant 74-year-old male came in with complaints of heart racing found to be in SVT was given Indocin with improved heart rate. Patient blood sugars found to be elevated along with anion gap [place] acidosis secondary to ketoa cidosis with anion gap of around 17. Patient blood sugars are very high in 500s and when he came in here patient didn't take his diabetic medications and take his beta wicho. Patient denied any fever chills patient denied any dysuria no other evidence of infection at the dehydration except for hyponatremia secondary to elevated blood sugars. Patient had nausea vomiting. After Indocin patient converted to sinus rhythm with some PACs. Repeat the basic metabolic panel showed anion gap of only 11 because of which a low-dose of her Lantus to prevent patient going into DKA again patient will be given sliding scale insulin with meals. Patient is on very complex regimen of Victoza, invikana, and 2 more oral hypoglycemic agents along with Lantus of 30 units because of which a it's hard to anticipated whether patient is beginning to become hypoglycemic or hyperglycemic which can lead to DKA again. Review of Systems REVIEW OF SYSTEMS: CONSTITUTIONAL: No fever, no malaise, no fatigue. HEENT: No recent visual problems or hearing problems. Denied any sore throat. CARDIOVASCULAR: No chest pain, orthopnea, PND. PULMONARY: No shortness of breath, no cough, no hemoptysis. GASTROINTESTINAL: No diarrhea, no nausea, no vomiting, no abdominal pain. NEUROLOGICAL: No headaches, no weakness, no numbness. HEMATOLOGICAL: Denies any bleeding or petechiae. GENITOURINARY: Denies any burning micturition, frequency, or urgency. MUSCULOSKELETAL/RHEUMATOLOGICAL: Denies any joint pain, swelling, or any muscle pain. ENDOCRINE: Denies any polyuria or polydipsia. The rest of the 14-point review of systems is negative. Past Medical History Past Medical History: Atrial Fibrillation, Coronary Artery Disease (CAD), Cancer , CVA/TIA, Diabetes Mellitus, Eye Disorder, GERD/Reflux, Hearing Disorder / Deafness, Hyperlipidemia, Hypertension, Osteoarthritis (OA), Sleep Apnea/CPAP/BIPAP, Vascular Disorder Additional Past Medical History / Comment(s): IDDM type II, bowel cancer with resection, prostate cancer with radiation-last tx 12/12/19, possible CVA vs TIA, L side of brain aneurysm that is being monitored, BURT with Cpap device, allergic rhinitis, UTI, deaf L ear, TRIBE R ear, bilateral eye cataracts and glaucoma. History of Any Multi-Drug Resistant Organisms: None Reported Past Surgical History: Bowel Resection, Ear Surgery, Heart Catheterization With Stent, Hernia Repair, Orthopedic Surgery, Prostate Surgery Additional Past Surgical History / Comment(s): 05/27/15 L mastoidectomy in which the ear was removed and holes in bone were cemented and a bone graft from his leg used-done at [facility], HERNIA SURG bilateral inguinal and umbilical, LT KNEE arthroscopy and then L total knee arthroplasty, L carotid endartectomy, bilat EAR TUBE, colonoscopy, vasectomy, prostate biopsy/rods inserted for radiation tx. Past Anesthesia/Blood Transfusion Reactions: No Reported Reaction Date of Last Stent Placement:: 2015 Smoking Status: Former smoker - Past Family History Mother Family Medical History: Cancer Additional Family Medical History / Comment(s): breast Brother(s) Family Medical History: Cancer Additional Family Medical History / Comment(s): Wegeners granulomatosis, prostate cancer Father Family Medical History: Cancer, CVA/TIA Additional Family Medical History / Comment(s): Prostate cancer, CVA Medications and Allergies Home Medications Medication Instructions Recorded Confirmed Type Cyanocobalamin (Vitamin B-12) 1,000 mcg PO DAILY 10/04/16 01/14/20 History [Vitamin B-12] Lisinopril [Zestril] 5 mg PO DAILY 10/04/16 01/14/20 History Nitroglycerin Sl Tabs [Nitrostat] 0.4 mg SUBLINGUAL DIRECTED PRN 10/04/16 01/14/20 History Aspirin EC [Ecotrin Low Dose] 162 mg PO DAILY 01/14/20 01/14/20 History Bicalutamide [Casodex] 50 mg PO DAILY 01/14/20 01/14/20 History Canagliflozin [Invokana] 300 mg PO DAILY 01/14/20 01/14/20 History Docusate [Colace] 100 mg PO DAILY 01/14/20 01/14/20 History Focus Factor Supplement 1 tab PO DAILY 01/14/20 01/14/20 History Insulin Glargine,Hum.rec.anlog 30 unit SQ QAM 01/14/20 01/14/20 History [Lantus Solostar] Latanoprost/Pf [Latanoprost 0.005% 1 drop BOTH EYES HS 01/14/20 01/14/20 History Eye Drop] Liraglutide [Victoza 3-Gonzales] 1.8 mg SQ DAILY 01/14/20 01/14/20 History Metoprolol Tartrate [Lopressor] 25 mg PO BID 01/14/20 01/14/20 History Pioglitazone HCl 15 mg PO DAILY 01/14/20 01/14/20 History Rosuvastatin Calcium 20 mg PO DAILY 01/14/20 01/14/20 History Tamsulosin HCl [Flomax] 0.4 mg PO DAILY 01/14/20 01/14/20 History Timolol 0.5% Ophth Soln [Timoptic 1 drop BOTH EYES DAILY 01/14/20 01/14/20 History 0.5% Ophth Soln] metFORMIN HCL 1,000 mg PO BID 01/14/20 01/14/20 History Allergies Allergy/AdvReac Type Severity Reaction Status Date / Time cashew nut Allergy Severe Anaphylaxis Verified 01/14/20 10:32 tree nut Allergy Severe Anaphylaxis Verified 01/14/20 10:32 Physical Exam Vitals: Vital Signs Temp Pulse Pulse Resp BP BP Pulse Ox 01/14/20 13:39 97.5 F L 75 18 126/75 98 01/14/20 13:04 80 18 128/80 100 01/14/20 13:03 80 18 100 01/14/20 11:40 82 18 145/85 100 01/14/20 10:29 144 H 18 121/87 100 01/14/20 09:15 18 01/14/20 09:07 98.1 F 152 H 20 112/78 99 Intake and Output 01/13/20 01/14/20 01/14/20 22:59 06:59 14:59 Other: Weight 94.801 kg PHYSICAL EXAMINATION: GENERAL: The patient is alert and oriented x3, not in any acute distress. Obese HEENT: Pupils are round and equally reacting to light. EOMI. No scleral icterus. No conjunctival pallor. Normocephalic, atraumatic. No pharyngeal erythema. No thyromegaly. CARDIOVASCULAR: S1 and S2 present. No murmurs, rubs, or gallops. PULMONARY: Chest is clear to auscultation, no wheezing or crackles. ABDOMEN: Soft, nontender, nondistended, normoactive bowel sounds. No palpable organomegaly. MUSCULOSKELETAL: No joint swelling or deformity. EXTREMITIES: No cyanosis, clubbing, or pedal edema. NEUROLOGICAL: Gross neurological examination did not reveal any focal deficits. SKIN: No rashes. Results CBC & Chem 7: 01/14/20 09:15 01/14/20 09:15 Labs: Abnormal Lab Results - Last 24 Hours (Table) 01/14/20 01/14/20 01/14/20 Range/Units 09:13 09:14 09:15 VBG pH (7.31-7.41) VBG pCO2 (37-51) mmHg VBG HCO3 (24-28) mmol/L Sodium 135 L (137-145) mmol/L Carbon Dioxide 17 L (22-30) mmol/L BUN 28 H (9-20) mg/dL Glucose 330 H (74-99) mg/dL POC Glucose (mg/dL) 330 H (75-99) mg/dL Plasma Lactic Acid Anand (0.7-2.0) mmol/L Lipase 307 H (23-300) U/L Urine Protein 1+ H (Negative) Urine Glucose (UA) 4+ H (Negative) Urine Ketones 2+ H (Negative) Urine Blood Small H (Negative) Ur Leukocyte Esterase Large H (Negative) Urine RBC 34 H (0-5) /hpf Urine WBC >182 H (0-5) /hpf Urine WBC Clumps Many H (None) /hpf Urine Bacteria Rare H (None) /hpf Hyaline Casts 5 H (0-2) /lpf Urine Yeast (Budding) Few H (None) /hpf 01/14/20 01/14/20 01/14/20 Range/Units 09:15 09:15 11:46 VBG pH 7.45 H (7.31-7.41) VBG pCO2 28 L (37-51) mmHg VBG HCO3 19 L (24-28) mmol/L Sodium (137-145) mmol/L Carbon Dioxide (22-30) mmol/L BUN (9-20) mg/dL Glucose (74-99) mg/dL POC Glucose (mg/dL) 252 H (75-99) mg/dL Plasma Lactic Acid Anand 2.8 H* (0.7-2.0) mmol/L Lipase (23-300) U/L Urine Protein (Negative) Urine Glucose (UA) (Negative) Urine Ketones (Negative) Urine Blood (Negative) Ur Leukocyte Esterase (Negative) Urine RBC (0-5) /hpf Urine WBC (0-5) /hpf Urine WBC Clumps (None) /hpf Urine Bacteria (None) /hpf Hyaline Casts (0-2) /lpf Urine Yeast (Budding) (None) /hpf 01/14/20 Range/Units 13:19 VBG pH (7.31-7.41) VBG pCO2 (37-51) mmHg VBG HCO3 (24-28) mmol/L Sodium (137-145) mmol/L Carbon Dioxide (22-30) mmol/L BUN (9-20) mg/dL Glucose (74-99) mg/dL POC Glucose (mg/dL) 172 H (75-99) mg/dL Plasma Lactic Acid Anand (0.7-2.0) mmol/L Lipase (23-300) U/L Urine Protein (Negative) Urine Glucose (UA) (Negative) Urine Ketones (Negative) Urine Blood (Negative) Ur Leukocyte Esterase (Negative) Urine RBC (0-5) /hpf Urine WBC (0-5) /hpf Urine WBC Clumps (None) /hpf Urine Bacteria (None) /hpf Hyaline Casts (0-2) /lpf Urine Yeast (Budding) (None) /hpf Thrombosis Risk Factor Assmnt - Choose All That Apply Any of the Below Risk Factors Present?: Yes Each Factor Represents 1 point: Obesity (BMI >25) Other Risk Factors: Yes Each Risk Factor Represents 2 Points: Malignancy Each Risk Factor Represents 3 Points: Age 75 years or older Other congenital or acquired thrombophilia - If yes, enter type in comment: No Thrombosis Risk Factor Assessment Total Risk Factor Score: 6 Thrombosis Risk Factor Assessment Level: High Risk Assessment and Plan Plan: -Diabetic ketoacidosis: Etiology is not clear and related to invokana which will be temporally held and the patient will be given a dose of 10 units of Lantus and the patient's anion gap resolved patient will be resumed on pre-meal insulin with each meals and patient will be started on diet. Patient does have lactic acidosis from dehydration and probably metformin patient is not a candidate for metformin and metformin will be discontinued. Patient need to be reevaluated for Invokana. -Hyponatremia: Sodium hyponatremia from hyperglycemia is expected to improve with IV fluids -Super ventricular tachycardia which resolved patient is sinus rhythm rate controlled with some PACs patient will continue on beta wicho echo will be obtained. -ST depressions in lateral leads and lead to: Due to ventricular strain from a SVT, these depressions are not eviden when Patient is sinus rhythm. cardiology was consulted will repeat 2 more sets of troponins patient doesn't have any chest pain at this time. -Coronary artery disease -Severity and the past -Gases visual reflux disease -Sleep apnea and uses CPAP machine at home which will be continued -Hyperlipidemia -Hypertension -Gastroesophageal reflux disease -History of prostate cancer with the prostatic surgery in the past. DVT prophylaxis with Lovenox for above-mentioned chronic medical problems patient will be resumed on appropriate home medications.
[2020-01-14] MEDS: PANTOPRAZOLE 40 MG/10 ML VIAL IVP SCH (15:32)
[2020-01-14] MEDS: SODIUM CHLORIDE 0.9% 1,000 ML IV SCH (15:32)
[2020-01-14] MEDS: METOPROLOL TARTRATE 25 MG TAB PO SCH ×2 (15:32→21:09)
[2020-01-14 15:34] LABS: Glucose,Whole Blood 125 mg/dL (75-99)
[2020-01-14 15:41] VITALS: RESP 16
[2020-01-14 17:15] LABS: Glucose,Whole Blood 132 mg/dL (75-99)
[2020-01-14] MEDS: INSULIN ASPART (NovoLOG) 100 UNIT/ML VIAL SQ SCH ×2 (18:02→21:09)
[2020-01-14 19:02] LABS: Glucose,Whole Blood 255 mg/dL (75-99)
[2020-01-14 20:58] LABS: Glucose,Whole Blood 255 mg/dL (75-99)
[2020-01-14] MEDS ORDERED: LATANOPROST 0.005% OPHTH DROPS 2.5 ML BTL BOTH EYES SCH (21:00)
[2020-01-15] MEDS: SODIUM CHLORIDE 0.9% 1,000 ML IV SCH ×2 (02:43→15:50)
[2020-01-15 06:20] LABS: Glucose,Whole Blood 148 mg/dL (75-99)
[2020-01-15 06:46] LABS: HGB 12.8 gm/dL (13.0-17.5); MCH 30.6 pg (25.0-35.0); MCHC 32.8 g/dL (31.0-37.0); MCV 93.5 fL (80.0-100.0); Mean Platelet Volume 7.4; Platelet Count 187 k/uL (150-450); RBC 4.17 m/uL (4.30-5.90); RDW 13.2 % (11.5-15.5)
[2020-01-15] MEDS ORDERED: INSULIN DETEMIR (LEVEMIR) 100 UNIT/ML SYR SQ SCH (07:00)
[2020-01-15] MEDS: INSULIN ASPART (NovoLOG) 100 UNIT/ML VIAL SQ SCH ×2 (07:02→12:06)
[2020-01-15 07:06] LABS: African American GFR (CKD) >90 (>60 ml/min/1.73 sqM); Anion Gap 5 mmol/L; Blood Urea Nitrogen 16 mg/dL (9-20); Calcium 8.5 mg/dL (8.4-10.2); Carbon Dioxide 21 mmol/L (22-30); Chloride 110 mmol/L (98-107); Glucose 127 mg/dL (74-99); Non-African American GFR(CKD) >90 (>60 ml/min/1.73 sqM); Potassium 3.8 mmol/L (3.5-5.1); Sodium 136 mmol/L (137-145)
[2020-01-15] MEDS: METOPROLOL TARTRATE 25 MG TAB PO SCH (08:31)
[2020-01-15] MEDS: PANTOPRAZOLE 40 MG/10 ML VIAL IVP SCH (08:32)
[2020-01-15] MEDS ORDERED: ENOXAPARIN 40 MG/0.4 ML SYRINGE SQ SCH (09:00)
[2020-01-15] MEDS ORDERED: CANAGLIFLOZIN 300 MG PO SCH (09:00)
[2020-01-15] MEDS ORDERED: TAMSULOSIN 0.4 MG CAP.ER.24H PO SCH (09:00)
[2020-01-15] MEDS ORDERED: LISINOPRIL 5 MG TAB PO SCH (09:00)
[2020-01-15] MEDS ORDERED: ATORVASTATIN 40 MG TAB PO SCH (09:00)
[2020-01-15] MEDS ORDERED: PATIENT'S OWN (Liraglutide [Victoza 3-Pak] 1.8 MG) SQ SCH (09:00)
[2020-01-15] MEDS ORDERED: ASPIRIN 81 MG PO SCH (09:00)
[2020-01-15] MEDS ORDERED: TIMOLOL 0.5% OPHTH DROPS 5 ML BTL BOTH EYES SCH (09:00)
[2020-01-15] MEDS ORDERED: PIOGLITAZONE 15 MG TAB PO SCH (09:00)
[2020-01-15] MEDS ORDERED: BICALUTAMIDE 50 MG TAB PO SCH (09:00)
--- NOTE | 2020-01-15 11:00 | ECHOF ---
Referral Reason:SVT MEASUREMENTS -------- HEIGHT: 175.3 cm WEIGHT: 93.9 kg BP: 170/86 RVIDd: 3.3 cm (< 3.3) IVSd: 1.6 cm (0.6 - 1.1) LVIDd: 4.8 cm (3.9 - 5.3) LVPWd: 1.5 cm (0.6 - 1.1) IVSs: 1.9 cm LVIDs: 3.8 cm LVPWs: 2.1 cm LA Diam: 4.0 cm (2.7 - 3.8) LAESV Index (A-L): 28.03 ml/m Ao Diam: 3.3 cm (2.0 - 3.7) AV Cusp: 2.1 cm (1.5 - 2.6) MV EXCURSION: 21.757 mm (> 18.000) MV EF SLOPE: 93 mm/s (70 - 150) EPSS: 0.6 cm MV E Rafael: 0.85 m/s MV DecT: 191 ms MV A Rafael: 0.90 m/s MV E/A Ratio: 0.95 RAP: 5.00 mmHg RVSP: 30.53 mmHg FINDINGS -------- This was a technically adequate study. The left ventricular size is normal. There is moderate concentric left ventricular hypertrophy. O verall left ventricular systolic function is normal with, an EF between 60 - 65 %. The right ventricle is mildly enlarged. Normal LA size by volume 22+/-6 ml/m2. The right atrium is normal in size. Interatrial and interventricular septum intact. There is mild aortic valve sclerosis. The mitral valve leaflets are mildly thickened. Mild mitral annular calcification present. Mild m itral regurgitation is present. Mild tricuspid regurgitation present. Right ventricular systolic pressure is normal at < 35 mmHg. There is no pulmonic regurgitation present. The aortic root size is normal. Normal inferior vena cava with normal inspiratory collapse consistent with estimated right atrial pre ssure of 5 mmHg. The inferior vena cava is mildly dilated. There is no pericardial effusion. CONCLUSIONS -------- 1. This was a technically adequate study. 2. The left ventricular size is normal. 3. There is moderate concentric left ventricular hypertrophy. 4. Overall left ventricular systolic function is normal with, an EF between 60 - 65 %. 5. The right ventricle is mildly enlarged. 6. Normal LA size by volume 22+/-6 ml/m2. 7. The right atrium is normal in size. 8. Interatrial and interventricular septum intact. 9. There is mild aortic valve sclerosis. 10. The mitral valve leaflets are mildly thickened. 11. Mild mitral annular calcification present. 12. Mild mitral regurgitation is present. 13. Mild tricuspid regurgitation present. 14. Right ventricular systolic pressure is normal at < 35 mmHg. 15. There is no pulmonic regurgitation present. 16. The aortic root size is normal. 17. Normal inferior vena cava with normal inspiratory collapse consistent with estimated right atrial pressure of 5 mmHg. 18. The inferior vena cava is mildly dilated. 19. There is no pericardial effusion. SHIRT CLOSER: Jennifer John RDCS
[2020-01-15 11:17] VITALS: BP 149/87; PULSE 68; TEMP 97.9
--- NOTE | 2020-01-15 11:35 | P.DS ---
Providers Date of admission: 01/14/20 11:32 Attending physician: Dorian Bauman Consults: 01/14/20 14:27 Consult Physician Routine Consulting Provider: Andrea Rodriguez Consult Reason/Comments: SVT Do you want consulting provider notified?: Yes Primary care physician: Natalia Stone [facility] Course: -year-old male came in with the DKA SVT is resolved with Indocin. Patient is presently on beta wicho. Patient is also being treated for urinary tract infection patient had symptoms of UTI with abnormally even patient's symptoms improved at this time patient will be discharged on 5 more days of Ceftin. Pat nati has lactic is doses because of that reason patient is not a candidate for a metformin except for Invokanaand metformin rest of his medical regimen will be continued. We will increase the dose of Lantus to 40 units and patient blood sugars are very well controlled at this time patient is feeling much better will be discharged today patient will check his blood sugars before meals and at bedtime.echocardiogram showed moderate constricted left ventricular hypertrophy with EF of around 60-60%. PHYSICAL EXAMINATION: GENERAL: The patient is alert and oriented x3, not in any acute distress. obese HEENT: Pupils are round and equally reacting to light. EOMI. No scleral icterus. No conjunctival pallor. Normocephalic, atraumatic. No pharyngeal erythema. No thyromegaly. CARDIOVASCULAR: S1 and S2 present. No murmurs, rubs, or gallops. PULMONARY: Chest is clear to auscultation, no wheezing or crackles. ABDOMEN: Soft, nontender, nondistended, normoactive bowel sounds. No palpable organomegaly. MUSCULOSKELETAL: No joint swelling or deformity. EXTREMITIES: No cyanosis, clubbing, or pedal edema. NEUROLOGICAL: Gross neurological examination did not reveal any focal deficits. SKIN: No rashes. Assessment and Plan Plan: -Diabetic ketoacidosis: resolved now -Hyponatremia:pseudohyponatremia improved with correction of blood sugars -possible urinary tract infection will follow. His urine cultures tomorrow patient will be discharged on Ceftin as improved with the ceftriaxone here -Super ventricular tachycardia which resolved patient is sinus rhythm rate controlled with some PACs patient will continue on beta wicho , echo as mentioned above -Coronary artery disease CVA in the past -Gases visual reflux disease -Sleep apnea and uses CPAP machine at home which will be continued -Hyperlipidemia -Hypertension -Gastroesophageal reflux disease -History of prostate cancer with the prostatic surgery in the past. Patient Condition at Discharge: Critical Plan - Discharge Summary Discharge Rx Participant: No New Discharge Prescriptions: New Cefuroxime Axetil [Ceftin] 500 mg PO BID 5 Days #10 tab Continue Lisinopril [Zestril] 5 mg PO DAILY Nitroglycerin Sl Tabs [Nitrostat] 0.4 mg SUBLINGUAL DIRECTED PRN PRN Reason: Chest Pain Cyanocobalamin (Vitamin B-12) [Vitamin B-12] 1,000 mcg PO DAILY Aspirin EC [Ecotrin Low Dose] 162 mg PO DAILY Metoprolol Tartrate [Lopressor] 25 mg PO BID Tamsulosin HCl [Flomax] 0.4 mg PO DAILY Rosuvastatin Calcium 20 mg PO DAILY Pioglitazone HCl 15 mg PO DAILY Liraglutide [Victoza 3-Gonzales] 1.8 mg SQ DAILY Docusate [Colace] 100 mg PO DAILY Bicalutamide [Casodex] 50 mg PO DAILY Focus Factor Supplement 1 tab PO DAILY Latanoprost/Pf [Latanoprost 0.005% Eye Drop] 1 drop BOTH EYES HS Timolol 0.5% Ophth Soln [Timoptic 0.5% Ophth Soln] 1 drop BOTH EYES DAILY Changed Insulin Glargine,Hum.rec.anlog [Lantus Solostar] 40 unit SQ QAM #0 Discontinued metFORMIN HCL 1,000 mg PO BID Canagliflozin [Invokana] 300 mg PO DAILY Discharge Medication List Cyanocobalamin (Vitamin B-12) [Vitamin B-12] 1,000 mcg PO DAILY 10/04/16 [History] Lisinopril [Zestril] 5 mg PO DAILY 10/04/16 [History] Nitroglycerin Sl Tabs [Nitrostat] 0.4 mg SUBLINGUAL DIRECTED PRN 10/04/16 [History] Aspirin EC [Ecotrin Low Dose] 162 mg PO DAILY 01/14/20 [History] Bicalutamide [Casodex] 50 mg PO DAILY 01/14/20 [History] Docusate [Colace] 100 mg PO DAILY 01/14/20 [History] Focus Factor Supplement 1 tab PO DAILY 01/14/20 [History] Latanoprost/Pf [Latanoprost 0.005% Eye Drop] 1 drop BOTH EYES HS 01/14/20 [History] Liraglutide [Victoza 3-Gonzales] 1.8 mg SQ DAILY 01/14/20 [History] Metoprolol Tartrate [Lopressor] 25 mg PO BID 01/14/20 [History] Pioglitazone HCl 15 mg PO DAILY 01/14/20 [History] Rosuvastatin Calcium 20 mg PO DAILY 01/14/20 [History] Tamsulosin HCl [Flomax] 0.4 mg PO DAILY 01/14/20 [History] Timolol 0.5% Ophth Soln [Timoptic 0.5% Ophth Soln] 1 drop BOTH EYES DAILY 12/30 12/18 [History] Cefuroxime Axetil [Ceftin] 500 mg PO BID 5 Days #10 tab 01/15/20 [Rx] Insulin Glargine,Hum.rec.anlog [Lantus Solostar] 40 unit SQ QAM #0 01/15/20 [Rx] Follow up Appointment(s)/Referral(s): Natalia Stone MD [Primary Care Provider] - 1-2 days
--- NOTE | 2020-01-15 11:38 | P.CRDCN ---
History of Present Illness Consult date: 01/15/20 Requesting physician: Tanya Oseguera Reason for Consult (text): SVT Chief complaint: Heartburn sensation and heart racing History of present illness: This is a 74-year-old gentleman who follows with Dr. Sulma Huang in the office. He has a history of diabetes, hypertension, hyperlipidemia, sleep apnea, coronary artery disease with stenting of the OM1 and OM 2 in 2016. Patient also has known prostate cancer for which he underwent surgery recently, currently undergoing radiation therapy. According to the patient, he took a large amount of NyQuil before going to bed last night, woke up with feeling his heart racing fast, also had a heartburn sensation for which she took some Tums. Because the heart rate persisted to be fast, patient called EMS to come to the hospital. His initial EKG so showed a supraventricular tachycardia, patient was given adenosine and converted to normal sinus rhythm. His chest x-ray showed chronic changes and cardiomegaly without any acute pulmonary process. Blood pressure 149/87, heart rate in the 60s to 70s, 98% on room air. Heart rate on admission 152. White blood cell count 8.0, hemoglobin 12.8, platelet count 187. Sodium 136, potassium 3.8, BUN 16, creatinine 0.7. Blood glucose levels via EMS was 502. Patient states he did take his diabetic meds before going to bed. Troponins negative 3.. Plasma lactic acid on arrival 2.8, 1.6 this morning. Positive UTI, acetone positive on arrival. Santana virus not detected. At the t maral of my examination this morning, patient is quite comfortable and is eager to be discharged home. We will obtain an echocardiogram with Doppler study. Continue beta wicho, HEATHER inhibitor, Lipitor, decrease aspirin to 81 mg daily. 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 History of Any Multi-Drug Resistant Organisms: None Reported Past Surgical History: Bowel Resection, Ear Surgery, Heart Catheterization With Stent, Hernia Repair, Orthopedic Surgery, Prostate Surgery Additional Past Surgical History / Comment(s): 05/27/15 L mastoidectomy in which the ear was removed and holes in bone were cemented and a bone graft from his leg used-done at [facility], HERNIA SURG bilateral inguinal and umbilical, LT KNEE arthroscopy and then L total knee arthroplasty, L carotid endartectomy, bilat EAR TUBE, colonoscopy, vasectomy, prostate biopsy/rods inserted for radiation tx. Past Anesthesia/Blood Transfusion Reactions: No Reported Reaction Date of Last Stent Placement:: 2015 Smoking Status: Former smoker - Past Family History Mother Family Medical History: Cancer Additional Family Medical History / Comment(s): breast Brother(s) Family Medical History: Cancer Additional Family Medical History / Comment(s): Wegeners granulomatosis, prostate cancer Father Family Medical History: Cancer, CVA/TIA Additional Family Medical History / Comment(s): Prostate cancer, CVA Medications and Allergies Home Medications Medication Instructions Recorded Confirmed Type Cyanocobalamin (Vitamin B-12) 1,000 mcg PO DAILY 10/04/16 01/14/20 History [Vitamin B-12] Lisinopril [Zestril] 5 mg PO DAILY 10/04/16 01/14/20 History Nitroglycerin Sl Tabs [Nitrostat] 0.4 mg SUBLINGUAL DIRECTED PRN 10/04/16 01/14/20 History Aspirin EC [Ecotrin Low Dose] 162 mg PO DAILY 01/14/20 01/14/20 History Bicalutamide [Casodex] 50 mg PO DAILY 01/14/20 01/14/20 History Docusate [Colace] 100 mg PO DAILY 01/14/20 01/14/20 History Focus Factor Supplement 1 tab PO DAILY 01/14/20 01/14/20 History Latanoprost/Pf [Latanoprost 0.005% 1 drop BOTH EYES HS 01/14/20 01/14/20 History Eye Drop] Liraglutide [Victoza 3-Gonzales] 1.8 mg SQ DAILY 01/14/20 01/14/20 History Metoprolol Tartrate [Lopressor] 25 mg PO BID 01/14/20 01/14/20 History Pioglitazone HCl 15 mg PO DAILY 01/14/20 01/14/20 History Rosuvastatin Calcium 20 mg PO DAILY 01/14/20 01/14/20 History Tamsulosin HCl [Flomax] 0.4 mg PO DAILY 01/14/20 01/14/20 History Timolol 0.5% Ophth Soln [Timoptic 1 drop BOTH EYES DAILY 01/14/20 01/14/20 History 0.5% Ophth Soln] Cefuroxime Axetil [Ceftin] 500 mg PO BID 5 Days #10 tab 01/15/20 Rx Insulin Glargine,Hum.rec.anlog 40 unit SQ QAM #0 01/15/20 01/14/20 Rx [Lantus Solostar] Allergies Allergy/AdvReac Type Severity Reaction Status Date / Time cashew nut Allergy Severe Anaphylaxis Verified 01/14/20 10:32 tree nut Allergy Severe Anaphylaxis Verified 01/14/20 10:32 Physical Exam Vitals: Vital Signs Temp Pulse Pulse Resp BP BP Pulse Ox 01/15/20 11:16 97.9 F 68 16 149/87 98 01/15/20 09:38 97.7 F 79 16 144/70 98 01/15/20 04:00 98 F 75 16 170/86 96 01/15/20 00:00 97.4 F L 77 16 124/58 98 01/14/20 20:00 98.4 F 65 16 134/76 96 01/14/20 15:30 70 16 117/69 98 01/14/20 13:39 97.5 F L 75 18 126/75 98 01/14/20 13:04 80 18 128/80 100 01/14/20 13:03 80 18 100 01/14/20 11:40 82 18 145/85 100 Intake and Output 01/14/20 01/15/20 01/15/20 22:59 06:59 14:59 Intake Total 690 450 120 Balance 690 450 120 Intake: Oral 690 450 120 Other: Voiding Method Toilet Toilet Toilet Urinal Urinal Urinal # Voids 1 1 Weight 94.3 kg PHYSICAL EXAMINATION: GENERAL: 74-year-old gentleman in no acute distress at the time of my examination HEENT: Head is atraumatic, normocephalic. Pupils equal, round. Sclera a nicteric. Conjunctiva are clear. Mucous membranes of the mouth are moist. Neck is supple. There is no elevated jugular venous pressure. No carotid bruit is heard. HEART EXAMINATION: Heart S1, S2 normal. No murmur or gallop heard. CHEST EXAMINATION: Lungs are clear to auscultation and precussion. No chest wall tenderness is noted on palpation or with deep breathing. ABDOMEN: Soft, nontender. Bowel sounds are heard. No organomegaly noted. EXTREMITIES: 2+ peripheral pulses with no evidence of peripheral edema and no calf tenderness noted. NEUROLOGIC patient is awake, alert and oriented 3 . . Results 01/15/20 06:25 01/15/20 06:25 Cardiac Enzymes 01/14/20 01/14/20 Range/Units 15:23 22:08 Troponin I <0.012 <0.012 (0.000-0.034) ng/mL CBC 01/15/20 Range/Units 06:25 WBC 8.0 (3.8-10.6) k/uL RBC 4.17 L (4.30-5.90) m/uL Hgb 12.8 L (13.0-17.5) gm/dL Hct 39.0 (39.0-53.0) % Plt Count 187 (150-450) k/uL Comprehensive Metabolic Panel 01/15/20 Range/Units 06:25 Sodium 136 L (137-145) mmol/L Potassium 3.8 (3.5-5.1) mmol/L Chloride 110 H (98-107) mmol/L Carbon Dioxide 21 L (22-30) mmol/L BUN 16 (9-20) mg/dL Creatinine 0.73 (0.66-1.25) mg/dL Glucose 127 H (74-99) mg/dL Calcium 8.5 (8.4-10.2) mg/dL Current Medications Generic Name Dose Route Start Last Admin Trade Name Freq PRN Reason Stop Dose Admin Aspirin 162 mg 01/15/20 09:00 01/15/20 08:31 Aspirin PO 162 mg DAILY CARLYLE Administration Atorvastatin Calcium 40 mg 01/15/20 09:00 01/15/20 08:32 Lipitor PO 40 mg DAILY CARLYLE Administration Bicalutamide 50 mg 01/15/20 09:00 01/15/20 08:31 Casodex PO 50 mg DAILY CARLYLE Administration Enoxaparin Sodium 40 mg 01/15/20 09:00 01/15/20 08:31 Lovenox SQ 40 mg DAILY CARLYLE Administration Ceftriaxone Sodium 1 gm/ 50 mls @ 100 mls/hr 01/15/20 09:00 01/15/20 08:32 Sodium Chloride IVPB 100 mls/hr Q24HR CARLYLE Administration Sodium Chloride 1,000 mls @ 100 mls/hr 01/14/20 14:30 01/15/20 02:43 Saline 0.9% IV 100 mls/hr .Q10H CARLYLE Administration Insulin Aspart 0 unit 01/14/20 17:30 01/15/20 07:02 Novolog SQ 1 unit ACHS CARLYLE Administration Protocol Insulin Detemir 30 unit 01/15/20 07:00 01/15/20 07:03 Levemir SQ 30 unit QAM@0700 CARLYLE Administration Latanoprost 1 drops 01/14/20 21:00 01/14/20 21:09 Xalatan 0.005% BOTH EYES 1 drops HS CARLYLE Administration Lisinopril 5 mg 01/15/20 09:00 01/15/20 08:32 Zestril PO 5 mg DAILY CARLYLE Administration Metoprolol Tartrate 25 mg 01/14/20 14:00 01/15/20 08:31 Lopressor PO 25 mg BID CARLYLE Administration Nitroglycerin 0.4 mg 01/14/20 13:46 Nitrostat SUBLINGUAL DIRECTED PRN Chest Pain Patient's Own ( 1.8 mg 01/15/20 09:00 01/15/20 08:45 Liraglutide [Victoza SQ Not Given 3-Gonzales] 1.8 Mg) DAILY [facility] Pantoprazole Sodium 40 mg 01/14/20 14:00 01/15/20 08:32 Protonix IVP 40 mg DAILY CARLYLE Administration Pioglitazone HCl 15 mg 01/15/20 09:00 01/15/20 08:31 Actos PO 15 mg DAILY CARLYLE Administration Tamsulosin HCl 0.4 mg 01/15/20 09:00 01/15/20 08:32 Flomax PO 0.4 mg DAILY CARLYLE Administration Timolol Maleate 1 drops 01/15/20 09:00 01/15/20 08:32 Timoptic BOTH EYES 1 drops DAILY CARLYLE Administration Intake and Output 01/14/20 01/15/20 01/15/20 22:59 06:59 14:59 Intake Total 690 450 120 Balance 690 450 120 Intake: Oral 690 450 120 Other: Voiding Method Toilet Toilet Toilet Urinal Urinal Urinal # Voids 1 1 Weight 94.3 kg 01/15/20 06:25 01/15/20 06:25 EKG Interpretations (text) EKG on arrival showed supraventricular tachycardia with a heart rate of 150. Subsequent EKG showed normal sinus rhythm with no acute changes. Assessment and Plan Plan: Assessment and plan #1 supraventricular tachycardia, converted to normal sinus rhythm with adenosine #2 history of coronary artery disease with prior stenting of the OM1 and 2. Allie scan stress test performed in September showed abnormal stress myocardial perfusion imaging with a small size, mild intensity partially reversible defect which may represent a small area of ischemia. #3 diabetes #4 hypertension #5 hyperlipidemia #6 sleep apnea #7 status post recent surgery for prostate cancer, receiving radiation treatment #8 UTI Plan We will continue current dose of beta wicho. Continue HEATHER inhibitor, statin, decrease aspirin to 81 mg daily. Obtain echocardiogram with Doppler study. He may be able to be discharged home from our perspective to follow-up with Dr. Sulma Huang in the office post discharge. DNP note has been reviewed, I agree with a documented findings and plan of care. Patient was seen and examined.
[2020-01-15 11:50] LABS: Glucose,Whole Blood 210 mg/dL (75-99)
[2020-01-15 14:50] VITALS: BMI 30.7
[2020-01-16] MEDS ORDERED: ASPIRIN 81 MG PO SCH (09:00)
== END 2020-01-15 16:18 | disposition home or self-care (01) | DRG 638 ==
LOC: SUPCPDRO 09:05 → EC 09:05 → 3SCARD 11:32
PROVIDERS: ADMIT Hospitalist; ATTEND Hospitalist
DX: E11.10 Type 2 diabetes mellitus with ketoacidosis without coma (principal); E87.1 Hypo-osmolality and hyponatremia; I47.1 Supraventricular tachycardia; N39.0 Urinary tract infection, site not specified; I67.1 Cerebral aneurysm, nonruptured; C61 Malignant neoplasm of prostate; I11.9 Hypertensive heart disease without heart failure; I48.91 Unspecified atrial fibrillation; E78.5 Hyperlipidemia, unspecified; E86.0 Dehydration; G47.30 Sleep apnea, unspecified; T38.3X5A Adverse effect of insulin and oral hypoglycemic [antidiabetic] drugs, initial encounter; H91.90 Unspecified hearing loss, unspecified ear; I25.10 Atherosclerotic heart disease of native coronary artery without angina pectoris; K21.9 Gastro-esophageal reflux disease without esophagitis; H40.9 Unspecified glaucoma; M19.90 Unspecified osteoarthritis, unspecified site; Z11.59 Encounter for screening for other viral diseases; Z79.4 Long term (current) use of insulin; Z79.82 Long term (current) use of aspirin; Z79.899 Other long term (current) drug therapy; Z87.891 Personal history of nicotine dependence; Z95.5 Presence of coronary angioplasty implant and graft; Z96.652 Presence of left artificial knee joint; Z86.73 Personal history of transient ischemic attack (TIA), and cerebral infarction without residual deficits; Z87.440 Personal history of urinary (tract) infections; Z80.42 Family history of malignant neoplasm of prostate; Z82.3 Family history of stroke; Z80.3 Family history of malignant neoplasm of breast
CPT/HCPCS: 36415; 71046; 80048; 80053; 81001; 82009; 82803; 83605; 83690; 83735; 84484; 85025; 85027; 87040; 87086; 93005; 93306; 96361; 96374; 96375; 99291

== ENCOUNTER 2020-01-17 08:24 | Observation (INO) | payer MEDICARE ==
[2020-01-17] MEDS: SODIUM CHLORIDE 0.9% 1,000 ML IV STA ×2 (08:30→08:51)
[2020-01-17] MEDS ORDERED: ASPIRIN 81 MG PO STA (08:35)
[2020-01-17 08:36] LABS: Glucose,Whole Blood 194 mg/dL (75-99)
--- NOTE | 2020-01-17 08:40 | ED ---
General Adult HPI - General Chief complaint: Arrhythmia/Palpitations Stated complaint: Palpitations Time Seen by Provider: 01/17/20 08:25 Source: patient, EMS, RN notes reviewed Mode of arrival: EMS Limitations: no limitations - History of Present Illness Initial comments: Patient is a pleasant 74-year-old male presenting to the emergency Department with palpitations. Onset of symptoms was 4 AM. Patient does feel his heart racing. Patient feels chest pressure. Patient amiss to feel short of breath. Patient has been taking his medications like normally except for today. No leg pain or leg swelling. No fevers. Patient was recently in the hospital with similar symptoms - Related Data Home Medications Medication Instructions Recorded Confirmed Cyanocobalamin (Vitamin B-12) 1,000 mcg PO DAILY 10/04/16 01/17/20 [Vitamin B-12] Lisinopril [Zestril] 5 mg PO DAILY 10/04/16 01/17/20 Nitroglycerin Sl Tabs [Nitrostat] 0.4 mg SUBLINGUAL Q5M PRN 10/04/16 01/17/20 Aspirin EC [Ecotrin Low Dose] 162 mg PO DAILY 01/14/20 01/17/20 Bicalutamide [Casodex] 50 mg PO DAILY 01/14/20 01/17/20 Docusate [Colace] 100 mg PO DAILY 01/14/20 01/17/20 Focus Factor Supplement 1 tab PO DAILY 01/14/20 01/17/20 Latanoprost/Pf [Latanoprost 0.005% 1 drop BOTH EYES HS 01/14/20 01/17/20 Eye Drop] Liraglutide [Victoza 3-Gonzales] 1.8 mg SQ DAILY 01/14/20 01/17/20 Metoprolol Tartrate [Lopressor] 25 mg PO BID 01/14/20 01/17/20 Pioglitazone HCl 15 mg PO DAILY 01/14/20 01/17/20 Tamsulosin HCl [Flomax] 0.4 mg PO DAILY 01/14/20 01/17/20 Timolol 0.5% Ophth Soln [Timoptic 1 drop BOTH EYES DAILY 01/14/20 01/17/20 0.5% Ophth Soln] Previous Rx's Medication Instructions Recorded Cefuroxime Axetil [Ceftin] 500 mg PO BID 5 Days #10 tab 01/15/20 Insulin Glargine,Hum.rec.anlog 40 unit SQ QAM #0 01/15/20 [Lantus Solostar] Rosuvastatin Calcium 20 mg PO DAILY #30 tab 01/15/20 Allergies Allergy/AdvReac Type Severity Reaction Status Date / Time cashew nut Allergy Severe Anaphylaxis Verified 01/17/20 10:28 tree nut Allergy Severe Anaphylaxis Verified 01/17/20 10:28 Review of Systems ROS Statement: Those systems with pertinent positive or pertinent negative responses have been documented in the HPI. ROS Other: All systems not noted in ROS Statement are negative. Constitutional: Denies: fever Eyes: Denies: eye pain ENT: Denies: ear pain Respiratory: Reports: as per HPI, dyspnea. Denies: cough Cardiovascular: Reports: as per HPI, chest pain, palpitations Endocrine: Reports: fatigue Gastrointestinal: Denies: abdominal pain Genitourinary: Denies: dysuria Musculoskeletal: Denies: back pain Skin: Denies: rash Neurological: Denies: weakness Past Medical History Past Medical History: Atrial Fibrillation, Coronary Artery Disease (CAD), Cance r, CVA/TIA, Diabetes Mellitus, Eye Disorder, GERD/Reflux, Hearing Disorder / Deafness, Hyperlipidemia, Hypertension, Osteoarthritis (OA), Sleep Apnea/CPAP/BIPAP, Vascular Disorder Additional Past Medical History / Comment(s): IDDM type II, bowel cancer with resection, prostate cancer with radiation-last tx 12/12/19, possible CVA vs TIA, 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 History of Any Multi-Drug Resistant Organisms: None Reported Past Surgical History: Bowel Resection, Ear Surgery, Heart Catheterization With Stent, Hernia Repair, Orthopedic Surgery, Prostate Surgery Additional Past Surgical History / Comment(s): 05/27/15 L mastoidectomy in which the ear was removed and holes in bone were cemented and a bone graft from his leg used-done at [facility], HERNIA SURG bilateral inguinal and umbilical, LT KNEE arthroscopy and then L total knee arthroplasty, L carotid endartectomy, bilat EAR TUBE, colonoscopy, vasectomy, prostate biopsy/rods inserted for radiation tx. Past Anesthesia/Blood Transfusion Reactions: No Reported Reaction Date of Last Stent Placement:: 2015 Past Psychological History: No Psychological Hx Reported Smoking Status: Former smoker Past Alcohol Use History: None Reported Past Drug Use History: None Reported - Past Family History Mother Family Medical History: Cancer Additional Family Medical History / Comment(s): breast Brother(s) Family Medical History: Cancer Additional Family Medical History / Comment(s): Wegeners granulomatosis, prostate cancer Father Family Medical History: Cancer, CVA/TIA Additional Family Medical History / Comment(s): Prostate cancer, CVA General Exam Limitations: no limitations General appearance: alert, in no apparent distress Head exam: Present: normocephalic Eye exam: Present: normal appearance Respiratory exam: Present: normal lung sounds bilaterally Cardiovascular Exam: Present: tachycardia, irregular rhythm Expanded Peripheral pulses: 2+: Radial (R), Radial (L), Dorsalis Pedis (R), Dorsalis Pedis (L) GI/Abdominal exam: Present: soft. Absent: tenderness Extremities exam: Present: normal inspection. Absent: pedal edema, calf tenderness Neurological exam: Present: alert Psychiatric exam: Present: normal affect, normal mood Skin exam: Present: normal color Course Vital Signs 01/17/20 01/17/20 01/17/20 08:25 08:35 08:52 Temperature 97.4 F L Pulse Rate 163 H 158 H 147 H Respiratory 27 H 27 H Rate Blood Pressure 82/46 91/58 97/62 O2 Sat by Pulse 98 100 Oximetry 01/17/20 01/17/20 01/17/20 08:57 09:14 09:16 Temperature Pulse Rate 144 H 151 H Respiratory 22 Rate Blood Pressure 84/65 95/72 101/74 O2 Sat by Pulse 100 Oximetry 01/17/20 01/17/20 01/17/20 09:23 09:44 09:55 Temperature Pulse Rate 151 H 151 H Respiratory 20 20 20 Rate Blood Pressure 102/75 94/77 83/68 O2 Sat by Pulse 99 100 100 Oximetry 01/17/20 01/17/20 01/17/20 09:57 10:03 10:09 Temperature Pulse Rate 149 H 147 H Respiratory Rate Blood Pressure 95/67 80/68 94/64 O2 Sat by Pulse Oximetry 01/17/20 01/17/20 01/17/20 10:13 10:40 10:47 Temperature Pulse Rate 147 H 146 H 144 H Respiratory 20 20 Rate Blood Pressure 112/65 100/66 100/66 O2 Sat by Pulse 100 98 Oximetry 01/17/20 01/17/20 01/17/20 10:51 10:55 11:00 Temperature Pulse Rate 141 H 141 H 90 Respiratory 16 Rate Blood Pressure 95/76 124/64 O2 Sat by Pulse 100 100 Oximetry - Reevaluation(s) Reevaluation #1: 01/17/20 11:04 EKG #2 shows sinus rhythm with sinus arrhythmia with a rate of 87. CT 192. QRS 84. QT 372. QTC 447. Normal axis. Normal QRS. No acute ST change. EKG Findings - EKG Comments: EKG Findings:: Neuro complex tachycardia with rate of 162. QRS 84. QT 3 or 4. QTC 499. Normal axis. ST depression V4 through V6. Inferior ST depression. Normal QRS. Procedures - Procedures Initial comment: Patient chemically cardioverted with adenosine. I was present during procedure. Patient did convert to sinus rhythm. Patient tolerated procedure well. Timeout done. procedure less than 10 minutes. Medical Decision Making - Medical Decision Making Patient did feel much better following adenosine. Patient updated. Case was discussed with Dr. Jackson will admit covering for Dr. Stone. - Lab Data Result diagrams: 01/17/20 08:30 01/17/20 08:30 Lab Results 01/17/20 01/17/20 01/17/20 Range/Units 08:30 08:30 08:30 WBC 7.7 (3.8-10.6) k/uL RBC 4.34 (4.30-5.90) m/uL Hgb 12.9 L (13.0-17.5) gm/dL Hct 40.3 (39.0-53.0) % MCV 92.8 (80.0-100.0) fL MCH 29.8 (25.0-35.0) pg MCHC 32.2 (31.0-37.0) g/dL RDW 13.3 (11.5-15.5) % Plt Count 188 (150-450) k/uL Neutrophils % 76 % Lymphocytes % 14 % Monocytes % 5 % Eosinophils % 3 % Basophils % 0 % Neutrophils # 5.9 (1.3-7.7) k/uL Lymphocytes # 1.1 (1.0-4.8) k/uL Monocytes # 0.4 (0-1.0) k/uL Eosinophils # 0.2 (0-0.7) k/uL Basophils # 0.0 (0-0.2) k/uL PT 11.5 (9.0-12.0) sec INR 1.1 (<1.2) APTT 22.1 (22.0-30.0) sec Sodium 136 L (137-145) mmol/L Potassium 3.7 (3.5-5.1) mmol/L Chloride 111 H (98-107) mmol/L Carbon Dioxide 13 L (22-30) mmol/L Anion Gap 12 mmol/L BUN 18 (9-20) mg/dL Creatinine 1.12 (0.66-1.25) mg/dL Est GFR (CKD-EPI)AfAm 74 (>60 ml/min/1.73 sqM) Est GFR (CKD-EPI)NonAf 64 (>60 ml/min/1.73 sqM) Glucose 190 H (74-99) mg/dL POC Glucose (mg/dL) (75-99) mg/dL POC Glu Lap Regulator ID Calcium 8.5 (8.4-10.2) mg/dL Magnesium 1.8 (1.6-2.3) mg/dL Total Bilirubin 0.7 (0.2-1.3) mg/dL AST 25 (17-59) U/L ALT 26 (4-49) U/L Alkaline Phosphatase 61 (38-126) U/L Troponin I (0.000-0.034) ng/mL NT-Pro-B Natriuret Pep pg/mL Total Protein 6.4 (6.3-8.2) g/dL Albumin 3.3 L (3.5-5.0) g/dL TSH 2.200 (0.465-4.680) mIU/L Free T4 2.04 (0.78-2.19) ng/dL Free T3 pg/mL 3.6 (2.8-5.3) pg/ml 01/17/20 01/17/20 01/17/20 Range/Units 08:30 08:30 08:35 WBC (3.8-10.6) k/uL RBC (4.30-5.90) m/uL Hgb (13.0-17.5) gm/dL Hct (39.0-53.0) % MCV (80.0-100.0) fL MCH (25.0-35.0) pg MCHC (31.0-37.0) g/dL RDW (11.5-15.5) % Plt Count (150-450) k/uL Neutrophils % % Lymphocytes % % Monocytes % % Eosinophils % % Basophils % % Neutrophils # (1.3-7.7) k/uL Lymphocytes # (1.0-4.8) k/uL Monocytes # (0-1.0) k/uL Eosinophils # (0-0.7) k/uL Basophils # (0-0.2) k/uL PT (9.0-12.0) sec INR (<1.2) APTT (22.0-30.0) sec Sodium (137-145) mmol/L Potassium (3.5-5.1) mmol/L Chloride (98-107) mmol/L Carbon Dioxide (22-30) mmol/L Anion Gap mmol/L BUN (9-20) mg/dL Creatinine (0.66-1.25) mg/dL Est GFR (CKD-EPI)AfAm (>60 ml/min/1.73 sqM) Est GFR (CKD-EPI)NonAf (>60 ml/min/1.73 sqM) Glucose (74-99) mg/dL POC Glucose (mg/dL) 194 H (75-99) mg/dL POC Glu Lap Regulator Merlene Godinez Calcium (8.4-10.2) mg/dL Magnesium (1.6-2.3) mg/dL Total Bilirubin (0.2-1.3) mg/dL AST (17-59) U/L ALT (4-49) U/L Alkaline Phosphatase (38-126) U/L Troponin I <0.012 (0.000-0.034) ng/mL NT-Pro-B Natriuret Pep 445 pg/mL Total Protein (6.3-8.2) g/dL Albumin (3.5-5.0) g/dL TSH (0.465-4.680) mIU/L Free T4 (0.78-2.19) ng/dL Free T3 pg/mL (2.8-5.3) pg/ml - Radiology Data Radiology results: image reviewed (Chest x-ray shows cardiomegaly and chronic changes) Critical Care Time Critical Care Time: Yes Total Critical Care Time: 33 Disposition Clinical Impression: Tachycardia, Dehydration Disposition: ADMITTED IP TO THIS HOSP Is patient prescribed a controlled substance at d/c from ED?: No Referrals: Natalia Stone MD [Primary Care Provider] - 1-2 days Decision Time: 11:04
[2020-01-17] MEDS ORDERED: DILTIAZEM 125 MG in SODIUM CHLORIDE 0.9% 100 ML IV SCH (08:45)
[2020-01-17 08:46] LABS: Basophils % (A) 0 %; Eosinophils # (A) 0.2 k/uL (0-0.7); Eosinophils % (A) 3 %; HCT 40.3 % (39.0-53.0); HGB 12.9 gm/dL (13.0-17.5); Lymphocytes # (A) 1.1 k/uL (1.0-4.8); Lymphocytes % (A) 14 %; MCH 29.8 pg (25.0-35.0); MCHC 32.2 g/dL (31.0-37.0); MCV 92.8 fL (80.0-100.0); Mean Platelet Volume 7.6; Monocytes # (A) 0.4 k/uL (0-1.0); Monocytes % (A) 5 %; Neutrophils # (A) 5.9 k/uL (1.3-7.7); Neutrophils % (A) 76 %; Platelet Count 188 k/uL (150-450); RBC 4.34 m/uL (4.30-5.90); RDW 13.3 % (11.5-15.5); WBC 7.7 k/uL (3.8-10.6)
[2020-01-17] MEDS ORDERED: SODIUM CHLORIDE 0.9% 1,000 ML IV STA (08:50)
[2020-01-17 09:13] LABS: INR 1.1 (<1.2); Partial Thromboplastin Time 22.1 sec (22.0-30.0); Prothrombin Time 11.5 sec (9.0-12.0)
--- NOTE | 2020-01-17 09:18 | XR ---
EXAMINATION TYPE: XR chest 2V DATE OF EXAM: 01/17/2020 COMPARISON: Chest x-ray 3 days ago. HISTORY: This arrhythmia and hypotension. TECHNIQUE: Frontal and lateral views of the chest are obtained. FINDINGS: There is chronic parenchymal changes bilaterally without suspicious new focal air space op acity, pleural effusion, or pneumothorax seen. The cardiac silhouette size remains enlarged with ath erosclerotic change aortic knob. Multilevel spurring in the thoracic spine redemonstrated. Old fractu re anterior right eighth rib again seen. IMPRESSION: Chronic changes and cardiomegaly without acute pulmonary process. No significant change from most recent x-ray.
[2020-01-17 09:35] LABS: Albumin 3.3 g/dL (3.5-5.0); Calcium 8.5 mg/dL (8.4-10.2); Magnesium 1.8 mg/dL (1.6-2.3); Potassium 3.7 mmol/L (3.5-5.1); Total Bilirubin 0.7 mg/dL (0.2-1.3); Total Protein 6.4 g/dL (6.3-8.2)
[2020-01-17 09:52] LABS: T4, Free (Free Thyroxine) 2.04 ng/dL (0.78-2.19)
[2020-01-17] MEDS ORDERED: ADENOSINE 3 MG/ML 2 ML VIAL IVP STA (10:45)
[2020-01-17] MEDS ORDERED: NALOXONE 0.4 MG/ML 1 ML VIAL IV PRN (11:04)
[2020-01-17] MEDS ORDERED: SODIUM CHLORIDE 0.9% 1,000 ML IV SCH (11:15)
[2020-01-17] MEDS ORDERED: NITROGLYCERIN SL TABS 0.4 MG TAB SUBLINGUAL PRN (11:22)
--- NOTE | 2020-01-17 14:44 | P.HPIM ---
History of Present Illness patient is a pleasant 72-year-old the female came in with the complaint of palpations found to be in SVT patient was recently treated for DKA UTI and at that time he had an SVT as well. Patient was on metoprolol patient heart rate w as well controlled with 2 days of monitoring and patient was cleared by cardiology subsequent is sent home care with complaints of palpitationwas having some shortness of breath. Patient blood sugars are fairly well controlled at this time, patient was given a dose and followed by Cardizem which was subsequently discontinued and patient is presently in metoprolol 50 twice a day. Review of Systems REVIEW OF SYSTEMS: CONSTITUTIONAL: No fever, no malaise, no fatigue. HEENT: No recent visual problems or hearing problems. Denied any sore throat. CARDIOVASCULAR:no orthopnea, PND, no syncope. PULMONARY: No shortness of breath, no cough, no hemoptysis. GASTROINTESTINAL: No diarrhea, no nausea, no vomiting, no abdominal pain. NEUROLOGICAL: No headaches, no weakness, no numbness. HEMATOLOGICAL: Denies any bleeding or petechiae. GENITOURINARY: Denies any burning micturition, frequency, or urgency. MUSCULOSKELETAL/RHEUMATOLOGICAL: Denies any joint pain, swelling, or any muscle pain. ENDOCRINE: Denies any polyuria or polydipsia. The rest of the 14-point review of systems is negative. Past Medical History Past Medical History: Atrial Fibrillation, Coronary Artery Disease (CAD), Cancer, CVA/TIA, Diabetes Mellitus, Eye Disorder, GERD/Reflux, Hearing Disorder / Deafness, Hyperlipidemia, Hypertension, Osteoarthritis (OA), Sleep Apnea/CPAP/BIPAP, Vascular Disorder Additional Past Medical History / Comment(s): Pt recently admitted to [facility] on 01/14/20 with DKA/SVT/UTI and had an echo that showed L ventricular hypertrophy with EF about 60%. 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 History of Any Multi-Drug Resistant Organisms: None Reported Past Surgical History: Bowel Resection, Ear Surgery, Heart Catheterization With Stent, Hernia Repair, Orthopedic Surgery, Prostate Surgery Additional Past Surgical History / Comment(s): 05/27/15 L mastoidectomy in which the ear was removed and holes in bone were cemented and a bone graft from his leg used-done at [facility], HERNIA SURG bilateral inguinal and umbilical, LT KNEE arthroscopy and then L total knee arthroplasty, L carotid endartectomy, bilat EAR TUBE, colonoscopy, vasectomy, prostate biopsy/rods inser juancarlos for radiation tx. Past Anesthesia/Blood Transfusion Reactions: No Reported Reaction Date of Last Stent Placement:: 2015 Smoking Status: Former smoker - Past Family History Mother Family Medical History: Cancer Additional Family Medical History / Comment(s): breast Brother(s) Family Medical History: Cancer Additional Family Medical History / Comment(s): Wegeners granulomatosis, pros little cancer Father Family Medical History: Cancer, CVA/TIA Additional Family Medical History / Comment(s): Prostate cancer, CVA Medications and Allergies Home Medications Medication Instructions Recorded Confirmed Type Cyanocobalamin (Vitamin B-12) 1,000 mcg PO DAILY 10/04/16 01/17/20 History [Vitamin B-12] Lisinopril [Zestril] 5 mg PO DAILY 10/04/16 01/17/20 History Nitroglycerin Sl Tabs [Nitrostat] 0.4 mg SUBLINGUAL Q5M PRN 10/04/16 01/17/20 History Aspirin EC [Ecotrin Low Dose] 162 mg PO DAILY 01/14/20 01/17/20 History Bicalutamide [Casodex] 50 mg PO DAILY 01/14/20 01/17/20 History Docusate [Colace] 100 mg PO DAILY 01/14/20 01/17/20 History Focus Factor Supplement 1 tab PO DAILY 01/14/20 01/17/20 History Latanoprost/Pf [Latanoprost 0.005% 1 drop BOTH EYES HS 01/14/20 01/17/20 History Eye Drop] Liraglutide [Victoza 3-Gonzales] 1.8 mg SQ DAILY 01/14/20 01/17/20 History Metoprolol Tartrate [Lopressor] 25 mg PO BID 01/14/20 01/17/20 History Pioglitazone HCl 15 mg PO DAILY 01/14/20 01/17/20 History Tamsulosin HCl [Flomax] 0.4 mg PO DAILY 01/14/20 01/17/20 History Timolol 0.5% Ophth Soln [Timoptic 1 drop BOTH EYES DAILY 01/14/20 01/17/20 History 0.5% Ophth Soln] Cefuroxime Axetil [Ceftin] 500 mg PO BID 5 Days #10 tab 01/15/20 01/17/20 Rx Insulin Glargine,Hum.rec.anlog 40 unit SQ QAM #0 01/15/20 01/17/20 Rx [Lantus Solostar] Rosuvastatin Calcium 20 mg PO DAILY #30 tab 01/15/20 01/17/20 Rx Allergies Allergy/AdvReac Type Severity Reaction Status Date / Time cashew nut Allergy Severe Anaphylaxis Verified 01/17/20 10:28 tree nut Allergy Severe Anaphylaxis Verified 01/17/20 10:28 Physical Exam Vitals: Vital Signs Temp Pulse Resp BP Pulse Ox 01/17/20 11:00 90 16 124/64 100 01/17/20 10:55 141 H 01/17/20 10:51 141 H 95/76 100 01/17/20 10:47 144 H 100/66 01/17/20 10:40 146 H 20 100/66 98 01/17/20 10:13 147 H 20 112/65 100 01/17/20 10:09 147 H 94/64 01/17/20 10:03 80/68 01/17/20 09:57 149 H 95/67 01/17/20 09:55 151 H 20 83/68 100 01/17/20 09:44 151 H 20 94/77 100 01/17/20 09:23 20 102/75 99 01/17/20 09:16 101/74 01/17/20 09:14 151 H 22 95/72 100 01/17/20 08:57 144 H 84/65 01/17/20 08:52 147 H 97/62 01/17/20 08:35 158 H 27 H 91/58 100 01/17/20 08:25 97.4 F L 163 H 27 H 82/46 98 Intake and Output 01/16/20 01/17/20 01/17/20 22:59 06:59 14:59 Intake Total 242.75 Balance 242.75 Intake: Intake, IV Titration 2.75 Amount Diltiazem 125 mg In 2.75 Sodium Chloride 0.9% 100 ml @ 5 MG/HR 5 mls/hr IV .Q24H [facility] Rx#:[id number] Oral 240 Other: Weight 94.801 kg PHYSICAL EXAMINATION: GENERAL: The patient is alert and oriented x3, not in any acute distress. Well developed, well nourished. HEENT: Pupils are round and equally reacting to light. EOMI. No scleral icterus. No conjunctival pallor. Normocephalic, atraumatic. No pharyngeal erythema. No thyromegaly. CARDIOVASCULAR: S1 and S2 present. No murmurs, rubs, or gallops. PULMONARY: Chest is clear to auscultation, no wheezing or crackles. ABDOMEN: Soft, nontender, nondistended, normoactive bowel sounds. No palpable organomegaly. MUSCULOSKELETAL: No joint swelling or deformity. EXTREMITIES: No cyanosis, clubbing, or pedal edema. NEUROLOGICAL: Gross neurological examination did not reveal any focal deficits. SKIN: No rashes. Results CBC & Chem 7: 01/17/20 08:30 01/17/20 08:30 Labs: Abnormal Lab Results - Last 24 Hours (Table) 01/17/20 01/17/20 01/17/20 Range/Units 08:30 08:30 08:35 Hgb 12.9 L (13.0-17.5) gm/dL Sodium 136 L (137-145) mmol/L Chloride 111 H (98-107) mmol/L Carbon Dioxide 13 L (22-30) mmol/L Glucose 190 H (74-99) mg/dL POC Glucose (mg/dL) 194 H (75-99) mg/dL Albumin 3.3 L (3.5-5.0) g/dL Thrombosis Risk Factor Assmnt - Choose All That Apply Any of the Below Risk Factors Present?: Yes Each Factor Represents 1 point: Obesity (BMI >25) Each Risk Factor Represents 2 Points: Malignancy Each Risk Factor Represents 3 Points: Age 75 years or older Other congenital or acquired thrombophilia - If yes, enter type in comment: No Thrombosis Risk Factor Assessment Total Risk Factor Score: 6 Thrombosis Risk Factor Assessment Level: High Risk Assessment and Plan Plan: -supraventriculartachycardia leading to chest pain chest pressure: metoprolol dose was increased patient will be evaluated by EP possibly of ablation. -type 2 diabetes mellitus uncontrolled blood sugars and increase the dose of long-acting insulin LAD pre-meal insulin patient is willing to take pre-meal insulin at home -Benign prostatic hypertrophy -metabolic acidosis non-anion gap secondary to hyperchloremia IV fluids will be switched to half-normal saline -hypertension -UTI patient's symptoms resolved the yesterday will continue couple more days of antibiotic. -Benign prostatic able to the -Hyperlipidemia DVT prophylaxis with Lovenox
--- NOTE | 2020-01-17 15:57 | CONS ---
CONSULTATION Mr. Garcia is a 74-year-old male who was discharged from the hospital recently. He presented again with an episode of palpitations that occurred early this morning. He came into the emergency room and his heart rate was in the 140s and 160s. He was in SVT, which is similar to what he had on prior admission. He received a dose of adenosine. He is back in sinus mechanism. The patient presented to the hospital on 01/14/2020 with similar findings, which is the first time he had that. He has a history of hypertension, hyperlipidemia, obstructive sleep apnea, coronary artery disease, status post stenting of the obtuse marginal branches 1 and 2 in 2016. He also has a history of prostate cancer. He underwent surgery and radiation therapy. On the previous admission, he took a large dose of NyQuil, but he denies doing that at this time. He has some chest pressure. Minimal dyspnea. No dizziness. No syncope. No PND or orthopnea. He has no peripheral edema. He follows with Dr. Salma Huang on a regular basis. He had an echocardiogram performed during his last admission that revealed a preserved left ventricular size and systolic function with mild mitral and tricuspid regurgitation. His coronary risk factors are remarkable for a history of hyperlipidemia, diabetes and hypertension. He is a nonsmoker. His medications at home included aspirin, Casodex, Victoza, Zestril 5 mg daily, Lopressor 25 mg twice a day, Actos, pravastatin 20 mg daily, tamsulosin, insulin. REVIEW OF SYSTEMS: RESPIRATORY SYSTEM: He has no documented history asthma or emphysema. No recent cough or fever. GI SYSTEM: No recent GI bleeding. No peptic ulcer disease. SYSTEM: He has a history of prostate cancer. NERVOUS SYSTEM: No stroke or seizure. PHYSICAL EXAMINATION: This patient is a 74-year-old male, alert, oriented, in no apparent distress. Blood pressure 124/60 with a heart rate in the 90s. HEAD: Normocephalic. Eyes: Sclerae anicteric. NECK: Good carotid upstroke. No bruit. No jugular venous distention. LUNGS: Clear to auscultation. HEART: Regular rate and rhythm. S1, S2. No S3, with systolic ejection murmur heard at the base. No diastolic murmur. No rub. ABDOMEN: Soft, nontender. EXTREMITIES: No edema. LAB DATA: Lab data revealed a hemoglobin of 12.9, white blood cell count of 7.7, BUN and creatinine of 18 and 1.12. Troponin less than 0.012. Initial EKG revealed supraventricular tachycardia with retrograde P-waves, rate of [address]-T wave changes. Subsequently he is in sinus mechanism. IMPRESSION: 1. Recurrent AV jasmyn reentry tachycardia. 2. History of coronary artery disease, stable. 3. Hypertension. 4. Hyperlipidemia. 5. Diabetes mellitus. 6. History of prostate cancer. RECOMMENDATIONS: From the cardiac standpoint, I will increase the dose of his beta wicho. Will observe him for 24 hours. If he remains in sinus mechanism, I would expect he should be able to be discharged home soon and will be evaluated as an outpatient for AV jasmyn reentry tachycardia ablation. Thank you for this consult. Will follow with you. ZACHARIAH / CORINNE: [id number] /
[2020-01-17 16:41] LABS: Glucose,Whole Blood 170 mg/dL (75-99)
[2020-01-17] MEDS: INSULIN ASPART (NovoLOG) 100 UNIT/ML VIAL SQ SCH (17:32)
[2020-01-17 20:12] VITALS: RESP 18
[2020-01-17] MEDS: METOPROLOL TARTRATE 50 MG TAB PO SCH (20:18)
[2020-01-17] MEDS: SODIUM CHLORIDE 0.45% 1,000 ML IV SCH (20:19)
[2020-01-17 20:44] LABS: Glucose,Whole Blood 160 mg/dL (75-99)
[2020-01-17] MEDS ORDERED: METOPROLOL TARTRATE 25 MG TAB PO SCH (21:00)
[2020-01-17] MEDS ORDERED: LATANOPROST 0.005% OPHTH DROPS 2.5 ML BTL BOTH EYES SCH (21:00)
[2020-01-18 06:26] LABS: Glucose,Whole Blood 111 mg/dL (75-99)
[2020-01-18] MEDS ORDERED: INSULIN DETEMIR (LEVEMIR) 100 UNIT/ML SYR SQ SCH ×3 (07:00)
[2020-01-18 07:23] LABS: Glucose,Whole Blood 127 mg/dL (75-99)
[2020-01-18] MEDS: INSULIN ASPART (NovoLOG) 100 UNIT/ML VIAL SQ SCH (07:32)
[2020-01-18] MEDS: SODIUM CHLORIDE 0.45% 1,000 ML IV SCH (07:33)
[2020-01-18 08:24] VITALS: BP 151/72; PULSE 71; TEMP 98.5
[2020-01-18] MEDS: METOPROLOL TARTRATE 50 MG TAB PO SCH (08:25)
[2020-01-18 08:36] LABS: African American GFR (CKD) >90 (>60 ml/min/1.73 sqM); Anion Gap 7 mmol/L; Blood Urea Nitrogen 12 mg/dL (9-20); Carbon Dioxide 19 mmol/L (22-30); Chloride 109 mmol/L (98-107); Glucose 103 mg/dL (74-99); Non-African American GFR(CKD) 86 (>60 ml/min/1.73 sqM); Potassium 3.9 mmol/L (3.5-5.1); Sodium 135 mmol/L (137-145)
[2020-01-18] MEDS ORDERED: DOCUSATE 100 MG CAP PO SCH (09:00)
[2020-01-18] MEDS ORDERED: PIOGLITAZONE 15 MG TAB PO SCH (09:00)
[2020-01-18] MEDS ORDERED: TAMSULOSIN 0.4 MG CAP.ER.24H PO SCH (09:00)
[2020-01-18] MEDS ORDERED: CYANOCOBALAMIN 500 MCG TAB PO SCH (09:00)
[2020-01-18] MEDS ORDERED: ASPIRIN 81 MG PO SCH (09:00)
[2020-01-18] MEDS ORDERED: lisinopriL 5 MG TAB PO SCH (09:00)
[2020-01-18] MEDS ORDERED: TIMOLOL 0.5% OPHTH DROPS 5 ML BTL BOTH EYES SCH (09:00)
[2020-01-18] MEDS ORDERED: NON FORMULARY DRUG (Liraglutide [Victoza 3-Pak] 1.8 MG) SQ SCH (09:00)
[2020-01-18] MEDS ORDERED: ATORVASTATIN 40 MG TAB PO SCH (09:00)
[2020-01-18] MEDS ORDERED: BICALUTAMIDE 50 MG TAB PO SCH (09:00)
--- NOTE | 2020-01-18 11:00 | PN ---
PROGRESS NOTE Mr. Sidhu is a 74-year-old male who presented with episode of palpitation was noted to be in supraventricular tachycardia. He is still in sinus mechanism. He is feeling well this morning. He denies any symptoms of chest pain. He denies any dizziness palpitation, he denies any nausea. He has a known history of coronary artery disease, hypertension, hyperlipidemia, and diabetes mellitus. He continues to be at this time on aspirin once a day, Lipitor 40 mg daily, insulin, lisinopril 5 mg daily, metoprolol tartrate 50 mg twice a day and Actos in addition to Flomax. PHYSICAL EXAMINATION: Blood pressure running in the 120s to 150 with a heart rate in the 70s. LUNGS: Clear. HEART: Regular rate and rhythm, S1, S2. No S3 with a systolic murmur, no diastolic murmur. ABDOMEN: Soft, obese, nontender. EXTREMITIES: No significant edema. LAB DATA: Revealed BUN and creatinine 12 and 0.84, potassium 3.9. IMPRESSION: 1. Recurrent AV jasmyn reentry tachycardia. 2. History of coronary artery disease. 3. Hypertension. 4. Hyperlipidemia. 5. Diabetes mellitus. 6. History of prostate cancer. RECOMMENDATION: From the cardiac standpoint, he should be able to be discharged home today and follow up with Dr. Huang next week and then subsequently probably proceed with evaluation for AV jasmyn reentry tachycardia ablation. MMODL / IJN: [id number] /
--- NOTE | 2020-01-18 11:47 | P.DS ---
Providers Date of admission: 01/18/20 10:09 Expected date of discharge: 01/18/20 Attending physician: Fredy Nichols MD Consults: 01/17/20 11:05 Consult Physician Urgent Consulting Provider: Jerman Lopez Consult Reason/Comments: Recurrent tachycardia Do you want consulting provider notified?: Yes Primary care physician: Natalia Stone Hospital Course: Final diagnosis -supraventricular tachycardia leading to chest pain chest pressure -type 2 diabetes mellitus uncontrolled blood sugars -Benign prostatic hypertrophy -metabolic acidosis non-anion gap secondary to hyperchloremia -hypertension -UTI -Benign prostatic hypertrophy -Hyperlipidemia -DVT prophylaxis Discharge disposition Patient is being discharged in a stable condition with guarded prognosis to home. Patient will follow-up with Dr. Stone upon discharge. Patient will also follow-up with cardiology Dr. Lopez in one week. Total time taken is 35 minutes. History of present illness This is an 74-year-old male who was recently admitted with supraventricular tachycardia and was being closely monitored. Patient also been treating his blood sugars along with a possible UTI and will continue with Ceftin for 2-3 days to complete the course. Cardiology was following. Patient was given a dose of adenosine and converted back to normal sinus during hospitalization in the ER. Patient was taking metoprolol 25 mg twice daily and has been increased to 50 mg daily. Patient will follow-up with Dr. ana lopez in the outpatient setting in 1 week. Patient will be evaluated further and discussed with about possible ablation in the outpatient setting. Patient also instructed to keep a diary and continue to closely monitor blood sugars before meals at bedtime. Patient is being initiated on pre-meal insulin at 10 units 3 times daily with meals and will continue with long-acting insulin. Patient to follow-up with primary care provider and discuss this change with them in the outpatient setting. Currently no reports of chest pain, shortness of breath, or palpitations. Patient is afebrile. No reports of nausea or vomiting and patient is tolerating diet. Patient will be discharged home today. On exam vital signs are stable. Temp is 98.5F, pulse is 71, respirations are 18, blood pressure is 151/72, oxygen saturation is 98 % on room air. Cardio S1, S2 are present. Respiratory system shows clear to auscultation. Abdomen is soft and non-tender. Nervous system shows no focal deficits. Please refer to medication reconciliation sheet for a list of medications. Patient Condition at Discharge: Stable Plan - Discharge Summary Discharge Rx Participant: No New Discharge Prescriptions: New Metoprolol Tartrate [Lopressor] 50 mg PO BID 30 Days #60 tab Continue Lisinopril [Zestril] 5 mg PO DAILY Nitroglycerin Sl Tabs [Nitrostat] 0.4 mg SUBLINGUAL Q5M PRN PRN Reason: Chest Pain Cyanocobalamin (Vitamin B-12) [Vitamin B-12] 1,000 mcg PO DAILY Aspirin EC [Ecotrin Low Dose] 162 mg PO DAILY Tamsulosin HCl [Flomax] 0.4 mg PO DAILY Pioglitazone HCl 15 mg PO DAILY Liraglutide [Victoza 3-Gonzales] 1.8 mg SQ DAILY Docusate [Colace] 100 mg PO DAILY Bicalutamide [Casodex] 50 mg PO DAILY Focus Factor Supplement 1 tab PO DAILY Latanoprost/Pf [Latanoprost 0.005% Eye Drop] 1 drop BOTH EYES HS Timolol 0.5% Ophth Soln [Timoptic 0.5% Ophth Soln] 1 drop BOTH EYES DAILY Cefuroxime Axetil [Ceftin] 500 mg PO BID 5 Days #10 tab Insulin Glargine,Hum.rec.anlog [Lantus Solostar] 40 unit SQ QAM #0 Rosuvastatin Calcium 20 mg PO DAILY #30 tab Discontinued Metoprolol Tartrate [Lopressor] 25 mg PO BID Discharge Medication List Cyanocobalamin (Vitamin B-12) [Vitamin B-12] 1,000 mcg PO DAILY 10/04/16 [History] Lisinopril [Zestril] 5 mg PO DAILY 10/04/16 [History] Nitroglycerin Sl Tabs [Nitrostat] 0.4 mg SUBLINGUAL Q5M PRN 10/04/16 [History] Aspirin EC [Ecotrin Low Dose] 162 mg PO DAILY 01/14/20 [History] Bicalutamide [Casodex] 50 mg PO DAILY 01/14/20 [History] Docusate [Colace] 100 mg PO DAILY 01/14/20 [History] Focus Factor Supplement 1 tab PO DAILY 01/14/20 [History] Latanoprost/Pf [Latanoprost 0.005% Eye Drop] 1 drop BOTH EYES HS 01/14/20 [History] Liraglutide [Victoza 3-Gonzales] 1.8 mg SQ DAILY 01/14/20 [History] Pioglitazone HCl 15 mg PO DAILY 01/14/20 [History] Tamsulosin HCl [Flomax] 0.4 mg PO DAILY 01/14/20 [History] Timolol 0.5% Ophth Soln [Timoptic 0.5% Ophth Soln] 1 drop BOTH EYES DAILY 01/14/20 [History] Cefuroxime Axetil [Ceftin] 500 mg PO BID 5 Days #10 tab 01/15/20 [Rx] Insulin Glargine,Hum.rec.anlog [Lantus Solostar] 40 unit SQ QAM #0 01/15/20 [Rx] Rosuvastatin Calcium 20 mg PO DAILY #30 tab 01/15/20 [Rx] Metoprolol Tartrate [Lopressor] 50 mg PO BID 30 Days #60 tab 01/18/20 [Rx] Follow up Appointment(s)/Referral(s): Jerman Lopez MD [STAFF PHYSICIAN] - 1 Week (Appointment Saturday 01/20 Per ) Natalia Stone MD [Primary Care Provider] - 1-2 days (Office Closed -please call to schedule follow up) Patient Instructions/Handouts: Tachycardia (ED) Activity/Diet/Wound Care/Special Instructions: Activity Limited until follow-up Continue current diet Follow-up with cardiology in the outpatient setting Follow-up with primary care provider upon discharge Note the change in metoprolol Discharge Disposition: HOME SELF-CARE
== END 2020-01-18 12:33 | disposition home or self-care (01) ==
LOC: EC 08:24 → 3SCARD 11:05 → OBSVTOIN 01-18 10:09 → INTOOBSV 01-18 10:09 → UNDODISIN 01-18 12:33
PROVIDERS: ADMIT Internal Medicine; ATTEND Internal Medicine
DX: I47.1 Supraventricular tachycardia (principal); E87.2 Acidosis; E11.65 Type 2 diabetes mellitus with hyperglycemia; E87.8 Other disorders of electrolyte and fluid balance, not elsewhere classified; N40.0 Benign prostatic hyperplasia without lower urinary tract symptoms; I48.91 Unspecified atrial fibrillation; I25.10 Atherosclerotic heart disease of native coronary artery without angina pectoris; I10 Essential (primary) hypertension; Z86.73 Personal history of transient ischemic attack (TIA), and cerebral infarction without residual deficits; H26.9 Unspecified cataract; K21.9 Gastro-esophageal reflux disease without esophagitis; H91.90 Unspecified hearing loss, unspecified ear; I08.1 Rheumatic disorders of both mitral and tricuspid valves; E78.5 Hyperlipidemia, unspecified; M19.90 Unspecified osteoarthritis, unspecified site; G47.33 Obstructive sleep apnea (adult) (pediatric); Z99.89 Dependence on other enabling machines and devices; Z85.038 Personal history of other malignant neoplasm of large intestine; Z90.49 Acquired absence of other specified parts of digestive tract; Z85.46 Personal history of malignant neoplasm of prostate; Z92.3 Personal history of irradiation; I67.1 Cerebral aneurysm, nonruptured; J30.9 Allergic rhinitis, unspecified; Z87.440 Personal history of urinary (tract) infections; H91.92 Unspecified hearing loss, left ear; H40.9 Unspecified glaucoma; Z95.5 Presence of coronary angioplasty implant and graft; Z98.890 Other specified postprocedural states; Z96.652 Presence of left artificial knee joint; Z98.52 Vasectomy status; Z87.891 Personal history of nicotine dependence; Z80.3 Family history of malignant neoplasm of breast; Z80.42 Family history of malignant neoplasm of prostate; Z82.3 Family history of stroke; Z83.2 Family history of diseases of the blood and blood-forming organs and certain disorders involving the immune mechanism; Z79.82 Long term (current) use of aspirin; Z79.4 Long term (current) use of insulin; Z79.899 Other long term (current) drug therapy; Z79.818 Long term (current) use of other agents affecting estrogen receptors and estrogen levels; Z91.018 Allergy to other foods
CPT/HCPCS: 96361 ×3; 96366; 96367; 96365; 96375; 99291; 36415; 93005; 84439; 84481; 83880; 80053; 80048; 83735; 84443; 84484; 85025; 85610; 85730; 71046; G0378 ×2; U0003; J0696 ×2; J0153; 96360

== ENCOUNTER 2020-02-14 15:26 | Emergency (ER) | payer MEDICARE ==
[2020-02-14 15:33] VITALS: TEMP 97.4
[2020-02-14] MEDS ORDERED: ADENOSINE 3 MG/ML 2 ML VIAL IVP STA (15:48)
--- NOTE | 2020-02-14 15:48 | ED ---
General Adult HPI - General Chief complaint: Arrhythmia/Palpitations Stated complaint: Tachycardia Time Seen by Provider: 02/14/20 15:35 Source: patient, RN notes reviewed Mode of arrival: ambulatory Limitations: no limitations - History of Present Illness Initial comments: Patient is a pleasant 75-year-old male presenting to the emergency department wi complaints of palpitations. Onset of symptoms is unclear. Patient does monitor his heart rate at home and it was fast. Patient was told by Dr. Huang for these symptoms return to come back to the hospital. questions the patient may be slightly short of breath however patient denies this. Patient states there is minimal discomfort. Patient states symptoms are similar to previous tachycardia episode. - Related Data Home Medications Medication Instructions Recorded Confirmed Cyanocobalamin (Vitamin B-12) 1,000 mcg PO DAILY 10/04/16 02/14/20 [Vitamin B-12] Lisinopril [Zestril] 5 mg PO DAILY 10/04/16 02/14/20 Nitroglycerin Sl Tabs [Nitrostat] 0.4 mg SUBLINGUAL Q5M PRN 10/04/16 02/14/20 Aspirin EC [Ecotrin Low Dose] 162 mg PO DAILY 01/14/20 02/14/20 Bicalutamide [Casodex] 50 mg PO DAILY 01/14/20 02/14/20 Docusate [Colace] 100 mg PO DAILY 01/14/20 02/14/20 Focus Factor Supplement 1 tab PO DAILY 01/14/20 02/14/20 Latanoprost/Pf [Latanoprost 0.005% 1 drop BOTH EYES HS 01/14/20 02/14/20 Eye Drop] Pioglitazone HCl 15 mg PO DAILY 01/14/20 02/14/20 Tamsulosin HCl [Flomax] 0.4 mg PO DAILY 01/14/20 02/14/20 Timolol 0.5% Ophth Soln [Timoptic 1 drop BOTH EYES DAILY 01/14/20 02/14/20 0.5% Ophth Soln] Canagliflozin [Invokana] 300 mg PO DAILY 02/14/20 02/14/20 Cholecalciferol [Vitamin D3 (25 1,000 unit PO DAILY 02/14/20 02/14/20 Mcg = 1000 Iu)] Exenatide Microspheres [Bydureon 2 mg SQ MO 02/14/20 02/14/20 Pen] INSULIN ASPART (NovoLOG) [NovoLOG 5 unit SQ AC-TID 02/14/20 02/14/20 (formulary)] Insulin Glargine,Hum.rec.anlog 40 unit SQ DAILY 02/14/20 02/14/20 [Lantus Solostar] metFORMIN HCL [Glucophage] 1,000 mg PO AC-BID 02/14/20 02/14/20 Previous Rx's Medication Instructions Recorded Rosuvastatin Calcium 20 mg PO DAILY #30 tab 01/15/20 Metoprolol Tartrate [Lopressor] 50 mg PO BID 30 Days #60 tab 01/18/20 Verapamil Sr [Isoptin Sr] 120 mg PO DAILY #30 tablet.er 02/14/20 Allergies Allergy/AdvReac Type Severity Reaction Status Date / Time cashew nut Allergy Severe Anaphylaxis Verified 02/14/20 17:27 tree nut Allergy Severe Anaphylaxis Verified 02/14/20 17:27 Review of Systems ROS Statement: Those systems with pertinent positive or pertinent negative responses have been documented in the HPI. ROS Other: All systems not noted in ROS Statement are negative. Constitutional: Denies: fever Eyes: Denies: eye pain ENT: Denies: ear pain Respiratory: Reports: as per HPI. Denies: cough Cardiovascular: Reports: as per HPI Endocrine: Denies: fatigue Gastrointestinal: Denies: abdominal pain Genitourinary: Denies: dysuria Musculoskeletal: Denies: back pain Skin: Denies: rash Neurological: Denies: weakness Past Medical History Past Medical History: Atrial Fibrillation, Coronary Artery Disease (CAD), Cancer, CVA/TIA, Diabetes Mellitus, Eye Disorder, GERD/Reflux, Hearing Disorder / Deafness, Hyperlipidemia, Hypertension, Osteoarthritis (OA), Sleep Apnea/CPAP/BIPAP, Vascular Disorder Additional Past Medical History / Comment(s): Pt recently admitted to [facility] on 01/14/20 with DKA/SVT/UTI and had an echo that showed L ventricular hypertrophy with EF about 60%. 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 History of Any Multi-Drug Resistant Organisms: None Reported Past Surgical History: Bowel Resection, Ear Surgery, Heart Catheterization With Stent, Hernia Repair, Orthopedic Surgery, Prostate Surgery Additional Past Surgical History / Comment(s): 05/27/15 L mastoidectomy in wh ich the ear was removed and holes in bone were cemented and a bone graft from his leg used-done at [facility], HERNIA SURG bilateral inguinal and umbilical, LT KNEE arthroscopy and then L total knee arthroplasty, L carotid endartectomy, bilat EAR TUBE, colonoscopy, vasectomy, prostate biopsy/rods inserted for radiation tx. Past Anesthesia/Blood Transfusion Reactions: No Reported Reaction Date of Last Stent Placement:: 2015 Past Psychological History: No Psychological Hx Reported Smoking Status: Former smoker Past Alcohol Use History: None Reported Past Drug Use History: None Reported - Past Family History Mother Family Medical History: Cancer Additional Family Medical History / Comment(s): breast Brother(s) Family Medical History: Cancer Additional Family Medical History / Comment(s): Wegeners granulomatosis, prostate cancer Father Family Medical History: Cancer, CVA/TIA Additional Family Medical History / Comment(s): Prostate cancer, CVA General Exam Limitations: no limitations General appearance: alert, in no apparent distress Head exam: Present: normocephalic Eye exam: Present: normal appearance Neck exam: Present: normal inspection Respiratory exam: Present: normal lung sounds bilaterally Cardiovascular Exam: Present: regular rate, tachycardia Expanded Peripheral pulses: 2+: Radial (R), Radial (L), Dorsalis Pedis (R), Dorsalis Pedis (L) GI/Abdominal exam: Present: soft. Absent: tenderness Extremities exam: Present: normal inspection. Absent: pedal edema, calf tenderness Neurological exam: Present: alert Psychiatric exam: Present: normal affect, normal mood Skin exam: Present: normal color Course Vital Signs 02/14/20 02/14/20 02/14/20 15:27 16:01 17:34 Temperature 97.4 F L Pulse Rate 155 H 85 74 Respiratory 20 16 16 Rate Blood Pressure 144/69 122/79 123/65 O2 Sat by Pulse 98 97 98 Oximetry - Reevaluation(s) Reevaluation #1: 02/14/20 16:05 Repeat EKG shows sinus rhythm at 90. MS 180. QRS 76. QT 382. QTC 467. Normal axis. Normal QRS. Nonspecific ST-T. 02/14/20 16:11 Case was crusted detail with Dr. Huang who is familiar with this patient and did review his notes. He does request adding verapamil SR 120 daily. He recommends holding evening dose of metoprolol and follow-up. He will consider ablation and discuss this with patient. He recommends discharge EKG Findings - EKG Comments: EKG Findings:: tachycardia 3-11. MS 176. QRS 82. QT 310. QTc 491. Normal axis. Normal QRS. Nonspecific ST-T. Procedures - Procedures Initial comment: Verbal consent given. Patient was chemically cardioverted with 6 mg of adenosine, no complications. Patient is symptom-free following cardioversion. Procedure time less than 10 minutes. Medical Decision Making - Medical Decision Making Patient reevaluated and resting comfortably in bed area patient remained symptom-free. Patient family updated on results and plan. - Lab Data Result diagrams: 02/14/20 16:19 02/14/20 16:19 Lab Results 02/14/20 02/14/20 02/14/20 Range/Units 16:19 16:19 16:19 WBC 8.1 (3.8-10.6) k/uL RBC 4.19 L (4.30-5.90) m/uL Hgb 12.7 L (13.0-17.5) gm/dL Hct 38.6 L (39.0-53.0) % MCV 92.2 (80.0-100.0) fL MCH 30.2 (25.0-35.0) pg MCHC 32.8 (31.0-37.0) g/dL RDW 12.9 (11.5-15.5) % Plt Count 190 (150-450) k/uL Neutrophils % 74 % Lymphocytes % 17 % Monocytes % 5 % Eosinophils % 2 % Basophils % 0 % Neutrophils # 6.0 (1.3-7.7) k/uL Lymphocytes # 1.4 (1.0-4.8) k/uL Monocytes # 0.4 (0-1.0) k/uL Eosinophils # 0.2 (0-0.7) k/uL Basophils # 0.0 (0-0.2) k/uL PT (9.0-12.0) sec INR (<1.2) APTT (22.0-30.0) sec Sodium 130 L (137-145) mmol/L Potassium 3.9 (3.5-5.1) mmol/L Chloride 100 (98-107) mmol/L Carbon Dioxide 17 L (22-30) mmol/L Anion Gap 13 mmol/L BUN 25 H (9-20) mg/dL Creatinine 0.95 (0.66-1.25) mg/dL Est GFR (CKD-EPI)AfAm >90 (>60 ml/min/1.73 sqM) Est GFR (CKD-EPI)NonAf 78 (>60 ml/min/1.73 sqM) Glucose 258 H (74-99) mg/dL Calcium 9.0 (8.4-10.2) mg/dL Magnesium 1.6 (1.6-2.3) mg/dL Total Bilirubin 0.5 (0.2-1.3) mg/dL AST 26 (17-59) U/L ALT 37 (4-49) U/L Alkaline Phosphatase 51 (38-126) U/L Troponin I <0.012 (0.000-0.034) ng/mL Total Protein 6.3 (6.3-8.2) g/dL Albumin 3.5 (3.5-5.0) g/dL TSH 2.300 (0.465-4.680) mIU/L Free T4 1.26 (0.78-2.19) ng/dL Free T3 pg/mL 3.9 (2.8-5.3) pg/ml 02/14/20 Range/Units 16:19 WBC (3.8-10.6) k/uL RBC (4.30-5.90) m/uL Hgb (13.0-17.5) gm/dL Hct (39.0-53.0) % MCV (80.0-100.0) fL MCH (25.0-35.0) pg MCHC (31.0-37.0) g/dL RDW (11.5-15.5) % Plt Count (150-450) k/uL Neutrophils % % Lymphocytes % % Monocytes % % Eosinophils % % Basophils % % Neutrophils # (1.3-7.7) k/uL Lymphocytes # (1.0-4.8) k/uL Monocytes # (0-1.0) k/uL Eosinophils # (0-0.7) k/uL Basophils # (0-0.2) k/uL PT 11.1 (9.0-12.0) sec INR 1.1 (<1.2) APTT 23.0 (22.0-30.0) sec Sodium (137-145) mmol/L Potassium (3.5-5.1) mmol/L Chloride (98-107) mmol/L Carbon Dioxide (22-30) mmol/L Anion Gap mmol/L BUN (9-20) mg/dL Creatinine (0.66-1.25) mg/dL Est GFR (CKD-EPI)AfAm (>60 ml/min/1.73 sqM) Est GFR (CKD-EPI)NonAf (>60 ml/min/1.73 sqM) Glucose (74-99) mg/dL Calcium (8.4-10.2) mg/dL Magnesium (1.6-2.3) mg/dL Total Bilirubin (0.2-1.3) mg/dL AST (17-59) U/L ALT (4-49) U/L Alkaline Phosphatase (38-126) U/L Troponin I (0.000-0.034) ng/mL Total Protein (6.3-8.2) g/dL Albumin (3.5-5.0) g/dL TSH (0.465-4.680) mIU/L Free T4 (0.78-2.19) ng/dL Free T3 pg/mL (2.8-5.3) pg/ml Critical Care Time Critical Care Time: Yes Total Critical Care Time: 32 Disposition Clinical Impression: SVT (supraventricular tachycardia) Disposition: HOME SELF-CARE Condition: Stable Instructions (If sedation given, give patient instructions): Supraventricular Tachycardia (ED) Additional Instructions: Please follow-up with Dr. Huang, call tomorrow for appointment. Return for increased heart rate, chest pain or difficulty breathing, racing heart, worsening symptoms or other concerns. Please also follow-up with primary care physician in the next couple of days for recheck. Prescription for verapamil provided. Start this tomorrow. Please decrease metoprolol to just a morning dose. No longer take the evening dose of metoprolol Prescription [facility] to [facility] Prescriptions: Verapamil Sr [Isoptin Sr] 120 mg PO DAILY #30 tablet.er Is patient prescribed a controlled substance at d/c from ED?: No Referrals: Natalia Stone MD [Primary Care Provider] - 1-2 days Jerman Huang MD [STAFF PHYSICIAN] - 1-2 days Time of Disposition: 17:47
[2020-02-14 16:02] VITALS: RESP 16
--- NOTE | 2020-02-14 16:23 | XR ---
EXAMINATION TYPE: XR chest 1V portable DATE OF EXAM: 02/14/2020 Comparison: 01/17/2020 Clinical History: 75-year-old male dysrhythmia Findings: Heart upper limits of normal in size. Aorta and pulmonary vasculature within normal limits. Hazy tiffany pheral lower lung densities related to overlying soft tissue. No theron consolidation or pleural effus ion seen. Impression: Limited portable exam. No definite acute cardiopulmonary process.
[2020-02-14 16:26] LABS: Basophils % (A) 0 %; Eosinophils # (A) 0.2 k/uL (0-0.7); Eosinophils % (A) 2 %; HCT 38.6 % (39.0-53.0); HGB 12.7 gm/dL (13.0-17.5); Lymphocytes # (A) 1.4 k/uL (1.0-4.8); Lymphocytes % (A) 17 %; MCH 30.2 pg (25.0-35.0); MCHC 32.8 g/dL (31.0-37.0); MCV 92.2 fL (80.0-100.0); Mean Platelet Volume 7.6; Monocytes # (A) 0.4 k/uL (0-1.0); Monocytes % (A) 5 %; Neutrophils % (A) 74 %; Platelet Count 190 k/uL (150-450); RBC 4.19 m/uL (4.30-5.90); RDW 12.9 % (11.5-15.5); WBC 8.1 k/uL (3.8-10.6)
[2020-02-14 16:34] LABS: INR 1.1 (<1.2); Prothrombin Time 11.1 sec (9.0-12.0)
[2020-02-14 17:01] LABS: ALT 37 U/L (4-49); AST 26 U/L (17-59); African American GFR (CKD) >90 (>60 ml/min/1.73 sqM); Albumin 3.5 g/dL (3.5-5.0); Alkaline Phosphatase 51 U/L (38-126); Anion Gap 13 mmol/L; Blood Urea Nitrogen 25 mg/dL (9-20); Carbon Dioxide 17 mmol/L (22-30); Chloride 100 mmol/L (98-107); Glucose 258 mg/dL (74-99); Magnesium 1.6 mg/dL (1.6-2.3); Non-African American GFR(CKD) 78 (>60 ml/min/1.73 sqM); Potassium 3.9 mmol/L (3.5-5.1); Sodium 130 mmol/L (137-145); Total Bilirubin 0.5 mg/dL (0.2-1.3); Total Protein 6.3 g/dL (6.3-8.2)
[2020-02-14] MEDS ORDERED: SODIUM CHLORIDE 0.9% 500 ML 500 ML IV STA (17:13)
[2020-02-14 17:16] LABS: T4, Free (Free Thyroxine) 1.26 ng/dL (0.78-2.19)
[2020-02-14] MEDS ORDERED: VERAPAMIL SR 120 MG TABLET.ER PO STA (17:49)
[2020-02-14 18:05] VITALS: BP 132/82; PULSE 78
== END 2020-02-14 18:04 | disposition home or self-care (01) ==
LOC: EC 15:26
DX: I47.1 Supraventricular tachycardia (principal); I48.91 Unspecified atrial fibrillation; I25.10 Atherosclerotic heart disease of native coronary artery without angina pectoris; E11.9 Type 2 diabetes mellitus without complications; G47.33 Obstructive sleep apnea (adult) (pediatric); Z79.4 Long term (current) use of insulin; Z79.82 Long term (current) use of aspirin; Z79.899 Other long term (current) drug therapy; Z87.891 Personal history of nicotine dependence; Z95.5 Presence of coronary angioplasty implant and graft; Z96.652 Presence of left artificial knee joint; Z86.73 Personal history of transient ischemic attack (TIA), and cerebral infarction without residual deficits; Z99.89 Dependence on other enabling machines and devices; Z85.46 Personal history of malignant neoplasm of prostate; Z91.018 Allergy to other foods; Z98.42 Cataract extraction status, left eye; Z98.41 Cataract extraction status, right eye; Z98.890 Other specified postprocedural states; Z80.42 Family history of malignant neoplasm of prostate
CPT/HCPCS: 99285; 96374; 36415; 93005; 84439; 84481; 80053; 83735; 84443; 84484; 85025; 85610; 85730; 71045; J0153

== ENCOUNTER 2020-03-25 10:12 | Inpatient (IN) | payer MEDICARE ==
[2020-03-25] MEDS ORDERED: SODIUM CHLORIDE 0.9% 500 ML 500 ML IV STA (10:42)
[2020-03-25] MEDS ORDERED: ADENOSINE 3 MG/ML 2 ML VIAL IVP STA (10:42)
--- NOTE | 2020-03-25 10:46 | ED ---
Arrhythmia/Palpitations HPI - General Chief Complaint: Arrhythmia/Palpitations Stated Complaint: fast heart rate Time Seen by Provider: 03/25/20 10:23 Source: patient, family, RN notes reviewed, old records reviewed Mode of arrival: wheelchair Limitations: no limitations - History of Present Illness Initial Comments: This is a 75-year-old male with a history of SVT A. fib heart disease and other dental issues who presents with complaints of the onset around 7:15 this morning of outpatient as an elevated heart rate. He denies any cough fevers chills nausea vomiting or sweats however his blood pressure was noted to down to 80/66. He has had previous episodes of this and he has problems with Cardizem with hypotension however per his adenosine has worked well. Patient complains of no chest pain at this time no shortness breath at this time no other modifying factors patient does state he believes is secondary to eating schwab. MD Complaint: rapid heart beat - Related Data Home Medications Medication Instructions Recorded Confirmed Cyanocobalamin (Vitamin B-12) 1,000 mcg PO DAILY 10/04/16 02/14/20 [Vitamin B-12] Nitroglycerin Sl Tabs [Nitrostat] 0.4 mg SUBLINGUAL Q5M PRN 10/04/16 02/14/20 lisinopriL [Zestril] 5 mg PO DAILY 10/04/16 02/14/20 Aspirin EC [Ecotrin Low Dose] 162 mg PO DAILY 01/14/20 02/14/20 Bicalutamide [Casodex] 50 mg PO DAILY 01/14/20 02/14/20 Docusate [Colace] 100 mg PO DAILY 01/14/20 02/14/20 Focus Factor Supplement 1 tab PO DAILY 01/14/20 02/14/20 Latanoprost/Pf [Latanoprost 0.005% 1 drop BOTH EYES HS 01/14/20 02/14/20 Eye Drop] Pioglitazone HCl 15 mg PO DAILY 01/14/20 02/14/20 Tamsulosin HCl [Flomax] 0.4 mg PO DAILY 01/14/20 02/14/20 Timolol 0.5% Ophth Soln [Timoptic 1 drop BOTH EYES DAILY 01/14/20 02/14/20 0.5% Ophth Soln] Canagliflozin [Invokana] 300 mg PO DAILY 02/14/20 02/14/20 Cholecalciferol [Vitamin D3 (25 1,000 unit PO DAILY 02/14/20 02/14/20 Mcg = 1000 Iu)] Exenatide Microspheres [Bydureon 2 mg SQ MO 02/14/20 02/14/20 Pen] INSULIN ASPART (NovoLOG) [NovoLOG 5 unit SQ AC-TID 02/14/20 02/14/20 (formulary)] Insulin Glargine,Hum.rec.anlog 40 unit SQ DAILY 02/14/20 02/14/20 [Lantus Solostar] metFORMIN HCL [Glucophage] 1,000 mg PO AC-BID 02/14/20 02/14/20 Previous Rx's Medication Instructions Recorded Rosuvastatin Calcium 20 mg PO DAILY #30 tab 01/15/20 Metoprolol Tartrate [Lopressor] 50 mg PO BID 30 Days #60 tab 01/18/20 Verapamil Sr [Isoptin Sr] 120 mg PO DAILY #30 tablet.er 02/14/20 Allergies Allergy/AdvReac Type Severity Reaction Status Date / Time cashew nut Allergy Severe Anaphylaxis Verified 02/14/20 17:27 tree nut Allergy Severe Anaphylaxis Verified 02/14/20 17:27 Review of Systems ROS Statement: Those systems with pertinent positive or pertinent negative responses have been documented in the HPI. ROS Other: All systems not noted in ROS Statement are negative. Past Medical History Past Medical History: Atrial Fibrillation, Coronary Artery Disease (CAD), Cancer, CVA/TIA, Diabetes Mellitus, Eye Disorder, GERD/Reflux, Hearing Disorder / Deafness, Hyperlipidemia, Hypertension, Osteoarthritis (OA), Sleep Apnea/CPAP/BIPAP, Vascular Disorder Additional Past Medical History / Comment(s): Pt recently admitted to [facility] on 01/14/20 with DKA/SVT/UTI and had an echo that showed L ventricular hypertrophy with EF about 60%. 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 History of Any Multi-Drug Resistant Organisms: None Reported Past Surgical History: Bowel Resection, Ear Surgery, Heart Catheterization With Stent, Hernia Repair, Orthopedic Surgery, Prostate Surgery Additional Past Surgical History / Comment(s): 05/27/15 L mastoidectomy in which the ear was removed and holes in bone were cemented and a bone graft from his leg used-done at [facility], HERNIA SURG bilateral inguinal and umbilical, LT KNEE arthroscopy and then L total knee arthroplasty, L carotid endartectomy, bilat EAR TUBE, colonoscopy, vasectomy, prostate biopsy/rods inserted for radiation tx. Past Anesthesia/Blood Transfusion Reactions: No Reported Reaction Date of Last Stent Placement:: 2015 Past Psychological History: No Psychological Hx Reported Smoking Status: Former smoker Past Alcohol Use History: None Reported Past Drug Use History: None Reported - Past Family History Mother Family Medical History: Cancer Additional Family Medical History / Comment(s): breast Brother(s) Family Medical History: Cancer Additional Family Medical History / Comment(s): Wegeners granulomatosis, prostate cancer Father Family Medical History: Cancer, CVA/TIA Additional Family Medical History / Comment(s): Prostate cancer, CVA General Exam - General Exam Comments Initial Comments: This is a well-developed well-nourished awake alert oriented times 3 male Limitations: no limitations General appearance: alert, in no apparent distress Head exam: Present: atraumatic, normocephalic, normal inspection Eye exam: Present: normal appearance, PERRL, EOMI. Absent: scleral icterus, conjunctival injection, periorbital swelling ENT exam: Present: normal exam, mucous membranes moist Neck exam: Present: normal inspection. Absent: tenderness, meningismus, lymphadenopathy Respiratory exam: Present: normal lung sounds bilaterally. Absent: respiratory distress, wheezes, rales, rhonchi, stridor Cardiovascular Exam: Present: normal rhythm, tachycardia, normal heart sounds. Absent: systolic murmur, diastolic murmur, rubs, gallop, clicks GI/Abdominal exam: Present: soft, normal bowel sounds. Absent: distended, tenderness, guarding, rebound, rigid Extremities exam: Present: normal inspection, full ROM, normal capillary refill. Absent: tenderness, pedal edema, joint swelling, calf tenderness Back exam: Present: normal inspection Neurological exam: Present: alert, oriented X3, CN II-XII intact Psychiatric exam: Present: normal affect, normal mood Skin exam: Present: warm, dry, intact, normal color. Absent: rash Course Vital Signs 03/25/20 03/25/20 10:25 10:57 Temperature 98 F Pulse Rate 141 H 80 Pulse Rate [ 140 H Program Evaluator ] Respiratory 18 18 Rate Blood Pressure 106/75 122/78 O2 Sat by Pulse 97 97 Oximetry - Reevaluation(s) Reevaluation #1: 03/25/20 12:29 I did review the post conversion and pre-conversion rhythm strips. Patient did respond to 6 mg of adenosine. We a sinus rhythm. Procedures - Procedures Initial comment: The patient did have evidence of SVT with borderline blood pressure. Patient has in the past successfully been converted with adenosine. Patient was given IV adenosine. He did respond appropriately with conversion to normal sinus rhythm. Patient did tolerate this well. Medical Decision Making - Medical Decision Making I did discuss Pfizer the patient family patient does have a elevation in his troponin. Due to this patient be admitted case is discussed with Dr. Oseguera. - Lab Data Result diagrams: 03/25/20 10:57 03/25/20 10:57 Lab Results 03/25/20 03/25/20 03/25/20 Range/Units 10:57 10:57 10:57 WBC 8.8 (3.8-10.6) k/uL RBC 4.12 L (4.30-5.90) m/uL Hgb 12.1 L (13.0-17.5) gm/dL Hct 37.2 L (39.0-53.0) % MCV 90.4 (80.0-100.0) fL MCH 29.5 (25.0-35.0) pg MCHC 32.6 (31.0-37.0) g/dL RDW 12.8 (11.5-15.5) % Plt Count 234 (150-450) k/uL Neutrophils % 77 % Lymphocytes % 13 % Monocytes % 6 % Eosinophils % 1 % Basophils % 1 % Neutrophils # 6.8 (1.3-7.7) k/uL Lymphocytes # 1.2 (1.0-4.8) k/uL Monocytes # 0.5 (0-1.0) k/uL Eosinophils # 0.1 (0-0.7) k/uL Basophils # 0.0 (0-0.2) k/uL PT 11.5 (9.0-12.0) sec INR 1.1 (<1.2) APTT 24.3 (22.0-30.0) sec Sodium 131 L (137-145) mmol/L Potassium 4.4 (3.5-5.1) mmol/L Chloride 100 (98-107) mmol/L Carbon Dioxide 19 L (22-30) mmol/L Anion Gap 12 mmol/L BUN 25 H (9-20) mg/dL Creatinine 0.97 (0.66-1.25) mg/dL Est GFR (CKD-EPI)AfAm 88 (>60 ml/min/1.73 sqM) Est GFR (CKD-EPI)NonAf 76 (>60 ml/min/1.73 sqM) Glucose 210 H (74-99) mg/dL Calcium 9.0 (8.4-10.2) mg/dL Magnesium 1.9 (1.6-2.3) mg/dL Total Bilirubin 0.7 (0.2-1.3) mg/dL AST 41 (17-59) U/L ALT 48 (4-49) U/L Alkaline Phosphatase 64 (38-126) U/L Creatine Kinase 35 L (55-170) U/L Troponin I (0.000-0.034) ng/mL Total Protein 7.0 (6.3-8.2) g/dL Albumin 3.8 (3.5-5.0) g/dL 03/25/20 Range/Units 10:57 WBC (3.8-10.6) k/uL RBC (4.30-5.90) m/uL Hgb (13.0-17.5) gm/dL Hct (39.0-53.0) % MCV (80.0-100.0) fL MCH (25.0-35.0) pg MCHC (31.0-37.0) g/dL RDW (11.5-15.5) % Plt Count (150-450) k/uL Neutrophils % % Lymphocytes % % Monocytes % % Eosinophils % % Basophils % % Neutrophils # (1.3-7.7) k/uL Lymphocytes # (1.0-4.8) k/uL Monocytes # (0-1.0) k/uL Eosinophils # (0-0.7) k/uL Basophils # (0-0.2) k/uL PT (9.0-12.0) sec INR (<1.2) APTT (22.0-30.0) sec Sodium (137-145) mmol/L Potassium (3.5-5.1) mmol/L Chloride (98-107) mmol/L Carbon Dioxide (22-30) mmol/L Anion Gap mmol/L BUN (9-20) mg/dL Creatinine (0.66-1.25) mg/dL Est GFR (CKD-EPI)AfAm (>60 ml/min/1.73 sqM) Est GFR (CKD-EPI)NonAf (>60 ml/min/1.73 sqM) Glucose (74-99) mg/dL Calcium (8.4-10.2) mg/dL Magnesium (1.6-2.3) mg/dL Total Bilirubin (0.2-1.3) mg/dL AST (17-59) U/L ALT (4-49) U/L Alkaline Phosphatase (38-126) U/L Creatine Kinase (55-170) U/L Troponin I 0.060 H* (0.000-0.034) ng/mL Total Protein (6.3-8.2) g/dL Albumin (3.5-5.0) g/dL - EKG Data -: EKG Interpreted by Me EKG shows normal: sinus rhythm EKG Comments: Supraventricular tachycardia with a rate of 138 QRS 70 QT since QTC 308/[address] configuration. - Radiology Data Radiology results: report reviewed (I did review the imaging and report no acute findings.), image reviewed Critical Care Time Critical Care Time: Yes Total Critical Care Time: 31 Critical Care Time: 31 minutes of critical care time which includes initial presentation with history physical labs x-rays several reevaluation response to therapy. Discussion with the patient family regarding findings review of old charting discussed with the admitting physician admission orders and the above. Disposition Clinical Impression: SVT (supraventricular tachycardia), Elevated troponin Disposition: ADMITTED IP TO THIS HOSP Condition: Fair Referrals: Natalia Stone MD [Primary Care Provider] - 1-2 days
--- NOTE | 2020-03-25 11:23 | XR ---
EXAMINATION TYPE: XR chest 2V DATE OF EXAM: 03/25/2020 COMPARISON: Chest x-ray February 14, 2020 HISTORY: Dysrhythmia. TECHNIQUE: Frontal and lateral views of the chest are obtained. FINDINGS: There is some chronic emphysematous and parenchymal change without suspicious new focal ai r space opacity, pleural effusion, or pneumothorax seen. The cardiac silhouette size is stable and m ildly enlarged with atherosclerotic aorta. Suspect old fracture deformity right posterior lateral eig hth rib. Overlying EKG leads redemonstrated. Multilevel spurring in thoracic spine seen. IMPRESSION: Chronic changes and cardiomegaly without acute pulmonary process.
[2020-03-25 11:28] LABS: Basophils % (A) 1 %; Eosinophils # (A) 0.1 k/uL (0-0.7); Eosinophils % (A) 1 %; HCT 37.2 % (39.0-53.0); HGB 12.1 gm/dL (13.0-17.5); Lymphocytes # (A) 1.2 k/uL (1.0-4.8); Lymphocytes % (A) 13 %; MCH 29.5 pg (25.0-35.0); MCHC 32.6 g/dL (31.0-37.0); MCV 90.4 fL (80.0-100.0); Mean Platelet Volume 7.8; Monocytes # (A) 0.5 k/uL (0-1.0); Monocytes % (A) 6 %; Neutrophils # (A) 6.8 k/uL (1.3-7.7); Neutrophils % (A) 77 %; Platelet Count 234 k/uL (150-450); RBC 4.12 m/uL (4.30-5.90); RDW 12.8 % (11.5-15.5); WBC 8.8 k/uL (3.8-10.6)
[2020-03-25 11:32] LABS: INR 1.1 (<1.2); Partial Thromboplastin Time 24.3 sec (22.0-30.0); Prothrombin Time 11.5 sec (9.0-12.0)
[2020-03-25 12:01] LABS: Albumin 3.8 g/dL (3.5-5.0); Magnesium 1.9 mg/dL (1.6-2.3); Potassium 4.4 mmol/L (3.5-5.1); Total Bilirubin 0.7 mg/dL (0.2-1.3)
[2020-03-25] MEDS ORDERED: NITROGLYCERIN SL TABS 0.4 MG TAB SUBLINGUAL PRN ×2 (12:32→12:33)
[2020-03-25] MEDS: SODIUM CHLORIDE 0.9% 1,000 ML IV SCH (13:41)
--- NOTE | 2020-03-25 17:16 | P.HPIM ---
History of Present Illness Patient with previous history of SVT came in because of elevated heart rate and palpitations without any chest pain denied any fever chills nausea vomiting patient doesn't have any evidence of infection or sepsis patient denied any d iarrhea patient is clinically not dehydrated. Patient is found to be in SVT was given 0.6 mg of Adenosine with conversion to sinus rhythm. She is feeling much better now but patient has mildly elevated troponins of 0.060 and 0.143 because of which patient was admitted patient is mild hyponatremic Review of Systems REVIEW OF SYSTEMS: CONSTITUTIONAL: No fever, no malaise, no fatigue. HEENT: No recent visual problems or hearing problems. Denied any sore throat. CARDIOVASCULAR: No chest pain, orthopnea, PND, no syncope. PULMONARY: No shortness of breath, no cough, no hemoptysis. GASTROINTESTINAL: No diarrhea, no nausea, no vomiting, no abdominal pain. NEUROLOGICAL: No headaches, no weakness, no numbness. HEMATOLOGICAL: Denies any bleeding or petechiae. GENITOURINARY: Denies any burning micturition, frequency, or urgency. MUSCULOSKELETAL/RHEUMATOLOGICAL: Denies any joint pain, swelling, or any muscle pain. ENDOCRINE: Denies any polyuria or polydipsia. The rest of the 14-point review of systems is negative. Past Medical History Past Medical History: Atrial Fibrillation, Coronary Artery Disease (CAD), C ancer, Diabetes Mellitus, Eye Disorder, GERD/Reflux, Hearing Disorder / Deafness, Hyperlipidemia, Hypertension, Osteoarthritis (OA), Sleep Apnea/CPAP/BIPAP, Supraventricular Tachycardia (SVT), Vascular Disorder Additional Past Medical History / Comment(s): IDDM type II, DKA, bowel cancer with resection, prostate cancer with radiation tx, BPH, L side of brain aneurysm that is being monitored, BURT with Cpap device, allergic rhinitis, UTI, SHOSHONE-PAIUTE bilaterally/aides, bilateral eye cataracts and glaucoma, arthritis bilateral knees with replacements. History of Any Multi-Drug Resistant Organisms: None Reported Past Surgical History: Bowel Resection, Ear Surgery, Heart Catheterization With Stent, Hernia Repair, Orthopedic Surgery, Prostate Surgery Additional Past Surgical History / Comment(s): 05/27/15 L mastoidectomy in which the ear was removed and holes in bone were cemented with shavings from bone in his leg -done at [facility], HERNIA SURG bilateral inguinal and umbilical, LT KNEE arthroscopy and then L total knee arthroplasty, R total knee arthroplasty, L carotid endartectomy, bilat EAR TUBE, colonoscopy, vasectomy, prostate biopsy/rods inserted for radiation tx. Past Anesthesia/Blood Transfusion Reactions: No Reported Reaction Date of Last Stent Placement:: 2015 Smoking Status: Former smoker - Past Family History Mother Family Medical History: Cancer Additional Family Medical History / Comment(s): breast Brother(s) Family Medical History: Cancer Additional Family Medical History / Comment(s): Wegeners granulomatosis, prostate cancer Father Family Medical History: Cancer, CVA/TIA Additional Family Medical History / Comment(s): Prostate cancer, CVA Medications and Allergies Home Medications Medication Instructions Recorded Confirmed Type Cyanocobalamin (Vitamin B-12) 1,000 mcg PO DAILY 10/04/16 03/25/20 History [Vitamin B-12] lisinopriL [Zestril] 5 mg PO DAILY 10/04/16 03/25/20 History Aspirin EC [Ecotrin Low Dose] 162 mg PO DAILY 01/14/20 03/25/20 History Bicalutamide [Casodex] 50 mg PO DAILY 01/14/20 03/25/20 History Latanoprost/Pf [Latanoprost 0.005% 1 drop BOTH EYES HS 01/14/20 03/25/20 History Eye Drop] Pioglitazone HCl 15 mg PO DAILY 01/14/20 03/25/20 History Tamsulosin HCl [Flomax] 0.4 mg PO DAILY 01/14/20 03/25/20 History Timolol 0.5% Ophth Soln [Timoptic 1 drop BOTH EYES DAILY 01/14/20 03/25/20 History 0.5% Ophth Soln] Rosuvastatin Calcium 20 mg PO DAILY #30 tab 01/15/20 03/25/20 Rx Metoprolol Tartrate [Lopressor] 50 mg PO BID 30 Days #60 tab 01/18/20 03/25/20 Rx Canagliflozin [Invokana] 300 mg PO DAILY 02/14/20 03/25/20 History Cholecalciferol [Vitamin D3 (25 1,000 unit PO DAILY 02/14/20 03/25/20 History Mcg = 1000 Iu)] Exenatide Microspheres [Bydureon 2 mg SQ MO 02/14/20 03/25/20 History Pen] INSULIN ASPART (NovoLOG) [NovoLOG 10 unit SQ AC-TID 02/14/20 03/25/20 History (formulary)] Insulin Glargine,Hum.rec.anlog 40 unit SQ DAILY 02/14/20 03/25/20 History [Lantus Solostar] metFORMIN HCL [Glucophage] 1,000 mg PO AC-BID 02/14/20 03/25/20 History Calcium Carbonate/Vitamin D3 1 tab PO DAILY 03/25/20 03/25/20 History [Calcium 500-Vit D3 600 Tablet] Verapamil HCl [Verapamil ER] 180 mg PO DAILY 03/25/20 03/25/20 History Allergies Allergy/AdvReac Type Severity Reaction Status Date / Time cashew nut Allergy Severe Anaphylaxis Verified 02/14/20 17:27 tree nut Allergy Severe Anaphylaxis Verified 02/14/20 17:27 Physical Exam Vitals: Vital Signs Temp Pulse Pulse Resp BP BP Pulse Ox 03/25/20 15:39 78 16 03/25/20 15:38 98.2 F 78 16 117/56 97 03/25/20 14:20 72 124/64 99 03/25/20 13:46 97.9 F 72 16 118/78 98 03/25/20 12:29 70 16 119/70 98 03/25/20 10:57 80 18 122/78 97 03/25/20 10:25 98 F 141 H 140 H 18 106/75 97 Intake and Output 03/25/20 03/25/20 03/25/20 06:59 14:59 22:59 Other: Voiding Method Urinal Diaper Weight 97.069 kg PHYSICAL EXAMINATION: GENERAL: The patient is alert and oriented x3, not in any acute distress. Well developed, well nourished. HEENT: Pupils are round and equally reacting to light. EOMI. No scleral icterus. No conjunctival pallor. Normocephalic, atraumatic. No pharyngeal erythema. No thyromegaly. CARDIOVASCULAR: S1 and S2 present. No murmurs, rubs, or gallops. PULMONARY: Chest is clear to auscultation, no wheezing or crackles. ABDOMEN: Soft, nontender, nondistended, normoactive bowel sounds. No palpable organomegaly. MUSCULOSKELETAL: No joint swelling or deformity. EXTREMITIES: No cyanosis, clubbing, or pedal edema. NEUROLOGICAL: Gross neurological examination did not reveal any focal deficits. SKIN: No rashes. Results CBC & Chem 7: 03/25/20 10:57 03/25/20 10:57 Labs: Abnormal Lab Results - Last 24 Hours (Table) 03/25/20 03/25/20 03/25/20 Range/Units 10:57 10:57 10:57 RBC 4.12 L (4.30-5.90) m/uL Hgb 12.1 L (13.0-17.5) gm/dL Hct 37.2 L (39.0-53.0) % Sodium 131 L (137-145) mmol/L Carbon Dioxide 19 L (22-30) mmol/L BUN 25 H (9-20) mg/dL Glucose 210 H (74-99) mg/dL Creatine Kinase 35 L (55-170) U/L Troponin I 0.060 H* (0.000-0.034) ng/mL 03/25/20 Range/Units 14:16 RBC (4.30-5.90) m/uL Hgb (13.0-17.5) gm/dL Hct (39.0-53.0) % Sodium (137-145) mmol/L Carbon Dioxide (22-30) mmol/L BUN (9-20) mg/dL Glucose (74-99) mg/dL Creatine Kinase (55-170) U/L Troponin I 0.143 H* (0.000-0.034) ng/mL Thrombosis Risk Factor Assmnt - Choose All That Apply Any of the Below Risk Factors Present?: Yes Each Factor Represents 1 point: Obesity (BMI >25) Other Risk Factors: Yes Each Risk Factor Represents 2 Points: Malignancy Each Risk Factor Represents 3 Points: Age 75 years or older Other congenital or acquired thrombophilia - If yes, enter type in comment: No Thrombosis Risk Factor Assessment Total Risk Factor Score: 6 Thrombosis Risk Factor Assessment Level: High Risk Assessment and Plan Plan: -Supraventricular tachycardia: Resolved and patient will be continued on verapamil, cardiology will evaluate the patient. -Mild elevation of troponins: Secondary to SVT, alert repeat another set of t roponin. -Mild hypovolemic hyponatremia: Continue with IV fluids -Coronary artery disease -Type 2 diabetes mellitus: Hold off on metformin patient will be started on sliding scale insulin and rest of his home regimen will be continued 7 gastroesophageal reflux disease -Hyperlipidemia -Hypertension -Peripheral vascular disease For above-mentioned chronic problems patient will be resumed and continued on appropriate home medications
[2020-03-25] MEDS ORDERED: metFORMIN 500 MG TAB PO SCH (17:30)
[2020-03-25] MEDS ORDERED: INSULIN ASPART (NovoLOG) 100 UNIT/ML VIAL SQ SCH (17:30)
[2020-03-25 17:47] LABS: Glucose,Whole Blood 126 mg/dL (75-99)
[2020-03-25] MEDS: INSULIN ASPART (NovoLOG) 100 UNIT/ML VIAL SQ SCH ×2 (17:48→20:19)
[2020-03-25 20:17] LABS: Glucose,Whole Blood 196 mg/dL (75-99)
[2020-03-25] MEDS: METOPROLOL TARTRATE 50 MG TAB PO SCH (20:17)
[2020-03-25] MEDS: LATANOPROST 0.005% OPHTH DROPS 2.5 ML BTL BOTH EYES SCH (21:13)
[2020-03-26 06:03] LABS: Glucose,Whole Blood 132 mg/dL (75-99)
[2020-03-26] MEDS: INSULIN ASPART (NovoLOG) 100 UNIT/ML VIAL SQ SCH ×4 (06:07→20:54)
[2020-03-26 06:53] LABS: HCT 37.3 % (39.0-53.0); HGB 12.2 gm/dL (13.0-17.5); MCHC 32.8 g/dL (31.0-37.0); MCV 91.3 fL (80.0-100.0); Mean Platelet Volume 7.6; Platelet Count 232 k/uL (150-450); RBC 4.09 m/uL (4.30-5.90); RDW 12.8 % (11.5-15.5); WBC 8.6 k/uL (3.8-10.6)
[2020-03-26 07:05] LABS: African American GFR (CKD) >90 (>60 ml/min/1.73 sqM); Anion Gap 6 mmol/L; Blood Urea Nitrogen 23 mg/dL (9-20); Calcium 8.7 mg/dL (8.4-10.2); Carbon Dioxide 24 mmol/L (22-30); Chloride 107 mmol/L (98-107); Cholesterol 131 mg/dL (<200); Glucose 133 mg/dL (74-99); HDL Cholesterol 33 mg/dL (40-60); LDL Cholesterol,Calculated 82 mg/dL (0-99); Non-African American GFR(CKD) 79 (>60 ml/min/1.73 sqM); Potassium 4.4 mmol/L (3.5-5.1); Sodium 137 mmol/L (137-145); Triglycerides 78 mg/dL (<150)
[2020-03-26] MEDS: TAMSULOSIN 0.4 MG CAP.ER.24H PO SCH (08:58)
[2020-03-26] MEDS: DOCUSATE 100 MG CAP PO SCH (08:58)
[2020-03-26] MEDS: CYANOCOBALAMIN 500 MCG TAB PO SCH (08:58)
[2020-03-26] MEDS: CHOLECALCIFEROL 1,000 UNIT TAB PO SCH (08:58)
[2020-03-26] MEDS: BICALUTAMIDE 50 MG TAB PO SCH (08:59)
[2020-03-26] MEDS: METOPROLOL TARTRATE 50 MG TAB PO SCH ×2 (08:59→20:54)
[2020-03-26] MEDS ORDERED: ENOXAPARIN 40 MG/0.4 ML SYRINGE SQ SCH (09:00)
[2020-03-26] MEDS ORDERED: VERAPAMIL SR 120 MG TABLET.ER PO SCH (09:00)
[2020-03-26] MEDS: TIMOLOL 0.5% OPHTH DROPS 5 ML BTL BOTH EYES SCH (09:00)
[2020-03-26] MEDS ORDERED: lisinopriL 5 MG TAB PO SCH (09:00)
[2020-03-26] MEDS ORDERED: ASPIRIN 81 MG PO SCH (09:00)
[2020-03-26] MEDS ORDERED: ATORVASTATIN 40 MG TAB PO SCH (09:00)
[2020-03-26] MEDS ORDERED: ASPIRIN 325 MG TAB PO SCH (09:00)
[2020-03-26] MEDS: INSULIN DETEMIR (LEVEMIR) 100 UNIT/ML SYR SQ SCH (09:57)
[2020-03-26] MEDS: PIOGLITAZONE 15 MG TAB PO SCH (09:57)
[2020-03-26] MEDS ORDERED: ALPRAZolam 0.5 MG TAB PO PRN (10:31)
[2020-03-26] MEDS ORDERED: ATORVASTATIN 40 MG TAB PO STA (10:31)
[2020-03-26] MEDS ORDERED: SODIUM CHLORIDE 0.9% 1,000 ML in EMPTY BAG 1 BAG IV ONE (10:31)
[2020-03-26] MEDS ORDERED: ALPRAZolam 0.25 MG TAB PO PRN (10:31)
[2020-03-26] MEDS ORDERED: ASPIRIN 325 MG TAB PO STA (10:31)
[2020-03-26] MEDS ORDERED: NITROGLYCERIN SL TABS 0.4 MG TAB SUBLINGUAL PRN (10:31)
[2020-03-26] MEDS: SODIUM CHLORIDE 0.9% 1,000 ML IV SCH ×2 (11:18→15:58)
--- NOTE | 2020-03-26 11:20 | P.CRDCN ---
History of Present Illness Consult date: 03/26/20 History of present illness: This is a 75-year-old gentleman with history of ischemic heart disease with previous stent placement and episodes of documented SVT, is admitted to the hospital with complaints of palpitations. Patient was in SVT with rapid ventricular response. Since admission patient converted back to sinus rhythm. Patient has been doing well. He did not have any chest pain. However, his troponin values went up suggestive of possible non-STEMI. Patient has been on beta wicho and verapamil prior to admission. Previously patient was not interested in ablation. At this point we'll going to consult, Dr. Delarosa for possible ablation. Patient was patient will undergo cardiac catheterization to rule out any progression of ischemic heart disease. Patient was explained the plan which he fully understood and accepted Currently patient is as ymptomatic. 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 History of Any Multi-Drug Resistant Organisms: None Reported Past Surgical History: Bowel Resection, Ear Surgery, Heart Catheterization With Stent, Hernia Repair, Orthopedic Surgery, Prostate Surgery Additional Past Surgical History / Comment(s): 05/27/15 L mastoidectomy in which the ear was removed and holes in bone were cemented with shavings from bone in his leg -done at [facility], HERNIA SURG bilateral inguinal and umbilical, LT KNEE arthroscopy and then L total knee arthroplasty, R total knee arthroplasty, L carotid endartectomy, bilat EAR TUBE, colonoscopy, vasectomy, prostate biopsy/rods inserted for radiation tx. Past Anesthesia/Blood Transfusion Reactions: No Reported Reaction Date of Last Stent Placement:: 2015 Smoking Status: Former smoker - Past Family History Mother Family Medical History: Cancer Additional Family Medical History / Comment(s): breast Brother(s) Family Medical History: Cancer Additional Family Medical History / Comment(s): Wegeners granulomatosis, prostate cancer Father Family Medical History: Cancer, CVA/TIA Additional Family Medical History / Comment(s): Prostate cancer, CVA Medications and Allergies Home Medications Medication Instructions Recorded Confirmed Type Cyanocobalamin (Vitamin B-12) 1,000 mcg PO DAILY 10/04/16 03/25/20 History [Vitamin B-12] lisinopriL [Zestril] 5 mg PO DAILY 10/04/16 03/25/20 History Aspirin EC [Ecotrin Low Dose] 162 mg PO DAILY 01/14/20 03/25/20 History Bicalutamide [Casodex] 50 mg PO DAILY 01/14/20 03/25/20 History Latanoprost/Pf [Latanoprost 0.005% 1 drop BOTH EYES HS 01/14/20 03/25/20 History Eye Drop] Pioglitazone HCl 15 mg PO DAILY 01/14/20 03/25/20 History Tamsulosin HCl [Flomax] 0.4 mg PO DAILY 01/14/20 03/25/20 History Timolol 0.5% Ophth Soln [Timoptic 1 drop BOTH EYES DAILY 01/14/20 03/25/20 History 0.5% Ophth Soln] Rosuvastatin Calcium 20 mg PO DAILY #30 tab 01/15/20 03/25/20 Rx Metoprolol Tartrate [Lopressor] 50 mg PO BID 30 Days #60 tab 01/18/20 03/25/20 Rx Canagliflozin [Invokana] 300 mg PO DAILY 02/14/20 03/25/20 History Cholecalciferol [Vitamin D3 (25 1,000 unit PO DAILY 02/14/20 03/25/20 History Mcg = 1000 Iu)] Exenatide Microspheres [Bydureon 2 mg SQ MO 02/14/20 03/25/20 History Pen] INSULIN ASPART (NovoLOG) [NovoLOG 10 unit SQ AC-TID 02/14/20 03/25/20 History (formulary)] Insulin Glargine,Hum.rec.anlog 40 unit SQ DAILY 02/14/20 03/25/20 History [Lantus Solostar] metFORMIN HCL [Glucophage] 1,000 mg PO AC-BID 07/16/20 08/25/20 History Calcium Carbonate/Vitamin D3 1 tab PO DAILY 03/25/20 03/25/20 History [Calcium 500-Vit D3 600 Tablet] Verapamil HCl [Verapamil ER] 180 mg PO DAILY 03/25/20 03/25/20 History Allergies Allergy/AdvReac Type Severity Reaction Status Date / Time cashew nut Allergy Severe Anaphylaxis Verified 02/14/20 17:27 tree nut Allergy Severe Anaphylaxis Verified 02/14/20 17:27 Physical Exam Vitals: Vital Signs Temp Pulse Pulse Resp BP BP Pulse Ox 03/26/20 08:00 97.8 F 68 20 127/68 96 03/26/20 04:00 97.6 F 51 L 18 122/71 96 03/26/20 00:00 98.2 F 70 18 111/60 97 03/25/20 20:00 98.6 F 70 18 125/68 96 03/25/20 15:39 78 16 03/25/20 15:38 98.2 F 78 16 117/56 97 03/25/20 14:20 72 124/64 99 03/25/20 13:46 97.9 F 72 16 118/78 98 03/25/20 12:29 70 16 119/70 98 Intake and Output 03/25/20 03/26/20 03/26/20 22:59 06:59 14:59 Intake Total 240 Output Total 0 180 Balance 240 -180 Intake: Oral 240 Output: Urine 0 180 Other: Voiding Method Urinal Urinal Urinal Diaper Diaper Diaper # Voids 0 1 2 # Bowel Movements 1 Weight 98 kg GENERAL EXAM: Patient is alert and oriented and doesn't appear to be in any acute distress HEENT: Normocephalic. Normal reaction of pupils, equal size, normal range of extraocular motion. No erythema or exudates in the throat. NECK: No masses, no nuchal rigidity. CHEST: No chest wall deformity. LUNGS: Equal air entry with no crackles or wheeze. HEART: S1 and S2 normal with no audible mumurs or gallops. Regular rhythm, femorals equal on both sides.. ABDOMEN: No hepatosplenomegaly, normal bowel sounds, no guarding or rigidity. SKIN: No rashes CENTRAL NERVOUS SYSTEM: No focal deficits. EXTREMITIES: No cyanosis, clubbing or edema. Results 03/26/20 06:31 03/26/20 06:31 Cardiac Enzymes 03/25/20 03/25/20 03/25/20 Range/Units 10:57 10:57 14:16 AST 41 (17-59) U/L Troponin I 0.060 H* 0.143 H* (0.000-0.034) ng/mL 03/25/20 Range/Units 17:00 AST (17-59) U/L Troponin I 0.151 H* (0.000-0.034) ng/mL Coagulation 03/25/20 Range/Units 10:57 PT 11.5 (9.0-12.0) sec APTT 24.3 (22.0-30.0) sec Lipids 03/26/20 Range/Units 06:31 Triglycerides 78 (<150) mg/dL Cholesterol 131 (<200) mg/dL HDL Cholesterol 33 L (40-60) mg/dL CBC 03/25/20 03/26/20 Range/Units 10:57 06:31 WBC 8.8 8.6 (3.8-10.6) k/uL RBC 4.12 L 4.09 L (4.30-5.90) m/uL Hgb 12.1 L 12.2 L (13.0-17.5) gm/dL Hct 37.2 L 37.3 L (39.0-53.0) % Plt Count 234 232 (150-450) k/uL Comprehensive Metabolic Panel 03/25/20 03/26/20 Range/Units 10:57 06:31 Sodium 131 L 137 (137-145) mmol/L Potassium 4.4 4.4 (3.5-5.1) mmol/L Chloride 100 107 (98-107) mmol/L Carbon Dioxide 19 L 24 (22-30) mmol/L BUN 25 H 23 H (9-20) mg/dL Creatinine 0.97 0.94 (0.66-1.25) mg/dL Glucose 210 H 133 H (74-99) mg/dL Calcium 9.0 8.7 (8.4-10.2) mg/dL AST 41 (17-59) U/L ALT 48 (4-49) U/L Alkaline Phosphatase 64 (38-126) U/L Total Protein 7.0 (6.3-8.2) g/dL Albumin 3.8 (3.5-5.0) g/dL Current Medications Generic Name Dose Route Start Last Admin Trade Name Freq PRN Reason Stop Dose Admin Alprazolam 0.25 mg 03/26/20 10:31 Xanax PO Q6HR PRN Mild Anxiety Alprazolam 0.5 mg 03/26/20 10:31 Xanax PO Q6HR PRN Moderate Anxiety Aspirin 162 mg 03/26/20 09:00 03/26/20 08:58 Aspirin PO 162 mg DAILY CARLYLE Administration Atorvastatin Calcium 40 mg 03/26/20 09:00 03/26/20 08:58 Lipitor PO 40 mg DAILY CARLYLE Administration Bicalutamide 50 mg 03/26/20 09:00 03/26/20 08:59 Casodex PO 50 mg DAILY CARLYLE Administration Cholecalciferol 1,000 unit 03/26/20 09:00 03/26/20 08:58 Vitamin D3 (25 Mcg = 1000 Iu) PO 1,000 unit DAILY CARLYLE Administration Cyanocobalamin 1,000 mcg 03/26/20 09:00 03/26/20 08:58 Vitamin B-12 PO 1,000 mcg DAILY CARLYLE Administration Docusate Sodium 100 mg 03/26/20 09:00 03/26/20 08:58 Colace PO 100 mg DAILY CARLYLE Administration Enoxaparin Sodium 40 mg 03/26/20 09:00 03/26/20 08:59 Lovenox SQ 40 mg DAILY CARLYLE Administration Sodium Chloride 1,000 mls @ 20 mls/hr 03/25/20 12:45 03/25/20 13:41 Saline 0.9% IV 20 mls/hr .Q24H CARLYLE Administration Sodium Chloride 1,000 ml/ IV 1,000 mls @ 98 mls/hr 03/26/20 10:31 Solution IV 03/26/20 20:43 .[id number] ONE 1 ML/KG/HR Insulin Aspart 0 unit 03/25/20 17:30 03/26/20 06:07 Novolog SQ 1 unit ACHS CARLYLE Administration Protocol Insulin Detemir 40 unit 03/26/20 09:00 03/26/20 09:57 Levemir SQ Not Given DAILY CARLYLE Latanoprost 1 drops 03/25/20 21:00 03/25/20 21:13 Xalatan 0.005% BOTH EYES 1 drops HS CARLYLE Administration Lisinopril 5 mg 03/26/20 09:00 03/26/20 08:58 Zestril PO 5 mg DAILY CARLYLE Administration Metoprolol Tartrate 50 mg 03/25/20 21:00 03/26/20 08:59 Lopressor PO 50 mg BID CARLYLE Administration Nitroglycerin 0.4 mg 03/25/20 12:32 Nitrostat SUBLINGUAL Q5M PRN Chest Pain Canagliflozin [ 300 mg 03/26/20 09:00 03/26/20 09:00 Invokana] 300 Mg PO Not Given DAILY CARLYLE Pioglitazone HCl 15 mg 03/26/20 09:00 03/26/20 09:57 Actos PO Not Given DAILY CARLYLE Tamsulosin HCl 0.4 mg 03/26/20 09:00 03/26/20 08:58 Flomax PO 0.4 mg DAILY CARLYLE Administration Timolol Maleate 1 drops 03/26/20 09:00 03/26/20 09:00 Timoptic BOTH EYES 1 drops DAILY CARLYLE Administration Verapamil HCl 120 mg 03/26/20 09:00 03/26/20 08:59 Isoptin Sr PO 120 mg DAILY CARLYLE Administration Intake and Output 03/25/20 03/26/20 03/26/20 22:59 06:59 14:59 Intake Total 240 Output Total 0 180 Balance 240 -180 Intake: Oral 240 Output: Urine 0 180 Other: Voiding Method Urinal Urinal Urinal Diaper Diaper Diaper # Voids 0 1 2 # Bowel Movements 1 Weight 98 kg 03/26/20 06:31 03/26/20 06:31 EKG Interpretations (text) Initial EKG showed SVT Assessment and Plan (1) Elevated troponin Current Visit: Yes Status: Acute Code(s): R79.89 - OTHER SPECIFIED ABNORMAL FINDINGS OF BLOOD CHEMISTRY SNOMED Code(s): 841987715 (2) SVT (supraventricular tachycardia) Current Visit: Yes Status: Acute Code(s): I47.1 - SUPRAVENTRICULAR TACHYCARDIA SNOMED Code(s): 5268096 (3) Diabetes Current Visit: No Status: Acute Code(s): E11.9 - TYPE 2 DIABETES MELLITUS WITHOUT COMPLICATIONS SNOMED Code(s): 81215498 (4) HTN (hypertension) Current Visit: No Status: Acute Code(s): I10 - ESSENTIAL (PRIMARY) HYPERTENSION SNOMED Code(s): 08983529 (5) Presence of stent in left circumflex coronary artery Current Visit: No Status: Acute Code(s): Z95.5 - PRESENCE OF CORONARY ANGIOPLASTY IMPLANT AND GRAFT SNOMED Code(s): 070599618 Plan: Proceed with cardiac catheterization to rule out any progression of ischemic h eart disease. We'll also consult Dr. Delarosa for possible ablation
[2020-03-26] MEDS ORDERED: LIDOCAINE 1% INJ 10MG/ML (20 ML MDV) ONE (11:54)
[2020-03-26] MEDS ORDERED: LIDOCAINE 1% INJ 10MG/ML (20 ML MDV) SQ ONE (12:03)
[2020-03-26] MEDS ORDERED: MIDAZOLAM 2 MG/2 ML VIAL IVP ONE (12:06)
[2020-03-26] MEDS ORDERED: IV FLUID CONTINUATION 1,000 ML IV ONE (12:13)
[2020-03-26] MEDS ORDERED: BIVALIRUDIN BOLUS 250 MG/50 ML IV ONE (12:39)
[2020-03-26] MEDS ORDERED: BIVALIRUDIN 250 MG in SODIUM CHLORIDE 0.9% 50 ML IV ONE (12:40)
[2020-03-26] MEDS ORDERED: CLOPIDOGREL 75 MG TAB ONE (13:08)
[2020-03-26] MEDS ORDERED: CLOPIDOGREL 75 MG TAB PO ONE (13:18)
[2020-03-26] MEDS ORDERED: NITROGLYCERIN 1000MCG/10ML SYRINGE INTRACORON ONE (13:21)
[2020-03-26] MEDS ORDERED: IOPAMIDOL-370 100ML BTL INJ ONE (13:27)
[2020-03-26] MEDS ORDERED: ZOLPIDEM 5 MG TAB PO PRN (13:34)
[2020-03-26] MEDS ORDERED: ATROPINE SULFATE 0.1 MG/ML 10ML SYRINGE IV PRN (13:34)
[2020-03-26] MEDS ORDERED: RX INFO: IV CONTRAST WAS GIVEN 1 EACH MISC MISCELLANE PRN (13:34)
[2020-03-26] MEDS ORDERED: MAG HYDROX/AL HYDROX/SIMETH 30 ML CUP PO PRN (13:34)
--- NOTE | 2020-03-26 14:42 | P.PN ---
Subjective patient was admitted for SVT. Patient received and Indocin with resolution of symptoms patient has mildly elevated troponins patient was treated for non-ST elevation microinfarction p, patient had a cardiac catheterizationand received 2 stents. Constitutional: Denied any fatigue denied any fever. Cardio vascular: denied any chest pain, palpitations Gastrointestinal denied any nausea vomiting Pulmonary: Denied any shortness of breath cough Neurologic denied any new focal deficits All inpatient medications were reviewed and appropriate changes in these medications as dictated in the interval history and assessment and plan. Objective - Vital Signs Vital signs: Vital Signs Temp 97.8 F 03/26/20 08:00 Pulse 72 03/26/20 13:49 Resp 20 03/26/20 13:49 BP 143/72 03/26/20 13:49 Pulse Ox 96 03/26/20 13:49 Intake & Output 03/25/20 03/26/20 03/26/20 18:59 06:59 18:59 Intake Total 240 195 Output Total 180 Balance 240 -180 195 Weight 97.069 kg 98 kg Intake: IV 195 Oral 240 Output: Urine 180 Other: Voiding Method Urinal Urinal Urinal Diaper Diaper Diaper # Voids 1 1 # Bowel Movements 1 - Exam PHYSICAL EXAMINATION: GENERAL: The patient is alert and oriented x3, not in any acute distress. Well developed, well nourished. HEENT: Pupils are round and equally reacting to light. EOMI. No scleral icterus. No conjunctival pallor. Normocephalic, atraumatic. No pharyngeal erythema. No thyromegaly. CARDIOVASCULAR: S1 and S2 present. No murmurs, rubs, or gallops. PULMONARY: Chest is clear to auscultation, no wheezing or crackles. ABDOMEN: Soft, nontender, nondistended, normoactive bowel sounds. No palpable organomegaly. MUSCULOSKELETAL: No joint swelling or deformity. EXTREMITIES: No cyanosis, clubbing, or pedal edema. NEUROLOGICAL: Gross neurological examination did not reveal any focal deficits. SKIN: No rashes. - Labs CBC & Chem 7: 03/26/20 06:31 03/26/20 06:31 Labs: Abnormal Lab Results - Last 24 Hours (Table) 03/25/20 03/25/20 03/25/20 Range/Units 14:16 17:00 17:46 RBC (4.30-5.90) m/uL Hgb (13.0-17.5) gm/dL Hct (39.0-53.0) % BUN (9-20) mg/dL Glucose (74-99) mg/dL POC Glucose (mg/dL) 126 H (75-99) mg/dL Troponin I 0.143 H* 0.151 H* (0.000-0.034) ng/mL HDL Cholesterol (40-60) mg/dL 03/25/20 03/26/20 03/26/20 Range/Units 20:16 06:02 06:31 RBC (4.30-5.90) m/uL Hgb (13.0-17.5) gm/dL Hct (39.0-53.0) % BUN 23 H (9-20) mg/dL Glucose 133 H (74-99) mg/dL POC Glucose (mg/dL) 196 H 132 H (75-99) mg/dL Troponin I (0.000-0.034) ng/mL HDL Cholesterol 33 L (40-60) mg/dL 03/26/20 Range/Units 06:31 RBC 4.09 L (4.30-5.90) m/uL Hgb 12.2 L (13.0-17.5) gm/dL Hct 37.3 L (39.0-53.0) % BUN (9-20) mg/dL Glucose (74-99) mg/dL POC Glucose (mg/dL) (75-99) mg/dL Troponin I (0.000-0.034) ng/mL HDL Cholesterol (40-60) mg/dL Assessment and Plan Plan: -Supraventricular tachycardia: Resolved and patient will be continued on verapamil, cardiology evaluated the patient -possible non-ST elevation microinfarction: Patient is status post cardiac catheterization and stenting -Mild hypovolemic hyponatremia: improved with IV fluids -Coronary artery disease -Type 2 diabetes mellitus: Hold off on metformin patient will be started on sliding scale insulin and rest of his home regimen will be continued 7 gastroesophageal reflux disease -Hyperlipidemia -Hypertension -Peripheral vascular disease For above-mentioned chronic problems patient will be resumed and continued on appropriate home medications
[2020-03-26 16:44] LABS: Glucose,Whole Blood 123 mg/dL (75-99)
[2020-03-26 20:36] LABS: Glucose,Whole Blood 301 mg/dL (75-99)
[2020-03-26] MEDS: LATANOPROST 0.005% OPHTH DROPS 2.5 ML BTL BOTH EYES SCH (20:54)
--- NOTE | 2020-03-26 23:34 | CC ---
CARDIAC CATHETERIZATION REPORT CARDIAC CATHETERIZATION AND PERCUTANEOUS CORONARY INTERVENTION REPORT: DATE OF SERVICE: 03/26/2020. PROCEDURE: 1. Left heart catheterization and coronary angiography. 2. Orbital atherectomy of proximal LAD. 3. PTCA and stenting of proximal LAD with two drug-eluting stents. PERFORMED BY: Dr. Salma Huang. Moderate conscious sedation time was 89 minutes. The patient was administered Versed. Oxygen saturation, hemodynamics and EKG were monitored closely. CLINICAL INFORMATION: Mr. Jorge Garcia is a 75-year-old gentleman with a known history of hypertension, type 2 diabetes, hyperlipidemia and CAD. In September 2015 I performed stenting of a large second obtuse marginal branch of circumflex. At that time he had a moderate disease in LAD and also distal RCA. RCA was a codominant vessel. He also developed in the interim prostate cancer and had radiation therapy. He had at least 2 or 3 visits to the hospital with paroxysmal SVT, symptomatic. Initially I increased the beta wicho, then added verapamil, but he still had a breakthrough episode yesterday, and after arrival to the hospital he also had chest tightness, pressure and had a troponin elevation. In view of a [id number] [place] in a patient with multiple risk factors and paroxysmal SVT with symptoms, he was advised coronary angiography after due discussion. I talked to the patient about the rationale, risks, benefits and options and proceeded to perform the procedure. PROCEDURE NOTE: Initially I thought about right radial, but previously he had a lot of spasm. Therefore I went with right femoral approach. Under strict aseptic precautions and local anesthesia, a 6-Setswana introducer was placed in the right femoral artery. I had some difficulty because of extreme calcification of the artery. However, a long wire was used and dilators were used. Uneventfully the sheath was placed. Using standard Magaly catheters, I performed coronary angiography, and the same right catheter was used to check LV pressures, but LV gram was not performed. Following coronary angiography, I noted that the proximal LAD had a significantly calcified lesion, eccentric, of about 80% to 90%. I proceeded to perform intervention of this vessel after the cardiac catheterization and performed orbital atherectomy and stenting of this vessel. CARDIAC CATHETERIZATION FINDINGS: The left ventricular end-diastolic pressure was 12 mmHg without any gradient across the aortic valve. CORONARY ANGIOGRAPHY FINDINGS: RIGHT CORONARY ARTERY: Technically a codominant vessel has an ostial lesion of probably close to 50% or so and whenever I cannulated the vessel, I had damping, but the flow appears to be brisk. Distally there is a smooth narrowing of about 40% noted. There is a good-sized PDA, but a small PLV branch that comes off distally. There are minor diffuse irregularities but ostial lesion of 40% to 50% and distal lesion of 50% is evident. LEFT MAIN CORONARY ARTERY: This is an extremely small vessel that immediately bifurcates into LAD and circumflex. Left main hardly exists. LEFT ANTERIOR DESCENDING CORONARY ARTERY: Good-caliber vessel extends along the anterior wall. Proximally there is significant calcification up to the mid segment. It gives off a first septal branch, and at the origin of the first septal branch there is a very eccentric 80% to 90% stenosis with heavy calcification which extends beyond the first septal branch almost to the diagonal branch. This lesion is long, heavily calcified, tortuous and eccentric in nature of 80% to 90%. Beyond it the caliber improves. The vessel runs all the way to the apex and the distal one-fourth of the vessel has some diffuse disease. LEFT POSTERIOR CIRCUMFLEX CORONARY ARTERY: Technically a codominant vessel that gives off a high first obtuse marginal, which gives off a superior secondary branch. This secondary branch was dilated by me with a with a 2.0 caliber balloon in September 2015. This vessel is widely patent with brisk flow. The first obtuse marginal itself had about a 30% to 35% narrowing but no significant disease. The second obtuse marginal, which was stented in the proximal/ostial portion, is widely patent with no more than 30% to 35% narrowing with brisk flow. The stented segment, therefore, is widely patent. The third obtuse marginal is free of significant disease and distally the vessel bifurcates into PDA and PLV. PLV is larger and supplies a sizable amount of myocardium. No significant disease. The second obtuse marginal that was stented is patent. The secondary branch of the first obtuse marginal is also widely patent. FINAL IMPRESSION: This patient has a codominant system. RCA has ostial disease of 40% to 50% and distal disease of 40%, not critical. LAD has a proximal 80% to 90% eccentric heavily calcified lesion at the origin of the first septal branch. This represents progression of disease. The circumflex marginal has a small secondary branch, and this is the first obtuse marginal. This branch was dilated in 2016 and appears to be patent. A good-sized second obtuse marginal that was stented is patent. Distally circumflex has minor irregularities. The filling pressures are normal and there is no gradient across the aortic valve. RECOMMENDATIONS: I recommended PCI of LAD with orbital atherectomy and proceeded to perform this in the same setting. PCI PROCEDURE DETAILS: I used a JL3.5 guide catheter to cannulate the left coronary artery. A run- through wire was used to cross the proximal LAD lesion. Wire was kept in the mid to distal LAD. It actually went into a septal branch. Using a Teleport catheter, I exchanged this long run-through wire for an orbital atherectomy wire. I then, under fluoroscopic guidance, very carefully advanced the orbital atherectomy catheter just at the proximal end of the lesion and made at least 4 passes and was able to obtain a very decent result. I then took the orbital atherectomy catheter out and advanced a 15 mm long NC Trek 2.5 balloon, and with this I dilated the lesion that was just atherectomized. I then deployed a 23 mm long 3.0 caliber Xience stent, and this stent was deployed in the proximal end just before the septal end distal and just before the diagonal branch. Excellent angiographic result was achieved, but at the distal end of the lesion there was still a narrowing of 50% to 60% present, and this was addressed with a 2.75 caliber 8 mm long Xience stent that was telescoped distally. The patient did not have chest pain but had precordial mild ST elevation. He received Angiomax bolus and infusion as per protocol. Excellent angiographic result was achieved without complication. Results were discussed with the patient, but no family was available. The sheath was then taken out and an Angio-Seal device used to secure hemostasis. Excellent angiographic result without complication was achieved of the proximal LAD. I performed orbital atherectomy and placement of 2 drug-eluting stents with excellent result. I expect the patient to be discharged in the next 24 to 36 hours. MMODL / IJN: [id number] / SUSAN
[2020-03-27] MEDS ORDERED: ADENOSINE 3 MG/ML 2 ML VIAL IVP STA (05:46)
[2020-03-27 06:28] LABS: Glucose,Whole Blood 172 mg/dL (75-99)
[2020-03-27] MEDS: INSULIN ASPART (NovoLOG) 100 UNIT/ML VIAL SQ SCH ×4 (06:30→21:28)
[2020-03-27] MEDS: SODIUM CHLORIDE 0.9% 1,000 ML IV SCH ×4 (06:30→21:32)
[2020-03-27 07:22] LABS: Basophils % (A) 0 %; Eosinophils # (A) 0.3 k/uL (0-0.7); Eosinophils % (A) 4 %; HCT 37.6 % (39.0-53.0); HGB 12.2 gm/dL (13.0-17.5); Lymphocytes # (A) 0.6 k/uL (1.0-4.8); Lymphocytes % (A) 9 %; MCH 29.4 pg (25.0-35.0); MCHC 32.5 g/dL (31.0-37.0); MCV 90.6 fL (80.0-100.0); Mean Platelet Volume 7.3; Monocytes # (A) 0.5 k/uL (0-1.0); Monocytes % (A) 6 %; Neutrophils # (A) 5.8 k/uL (1.3-7.7); Neutrophils % (A) 79 %; Platelet Count 220 k/uL (150-450); RBC 4.15 m/uL (4.30-5.90); RDW 12.8 % (11.5-15.5); WBC 7.4 k/uL (3.8-10.6)
[2020-03-27 07:51] LABS: African American GFR (CKD) >90 (>60 ml/min/1.73 sqM); Anion Gap 8 mmol/L; Blood Urea Nitrogen 20 mg/dL (9-20); Calcium 8.6 mg/dL (8.4-10.2); Carbon Dioxide 22 mmol/L (22-30); Chloride 107 mmol/L (98-107); Glucose 165 mg/dL (74-99); Non-African American GFR(CKD) 85 (>60 ml/min/1.73 sqM); Potassium 4.2 mmol/L (3.5-5.1); Sodium 137 mmol/L (137-145)
[2020-03-27] MEDS: CLOPIDOGREL 75 MG TAB PO SCH ×2 (08:55→08:56)
[2020-03-27] MEDS: CALCIUM CARB-VIT D 500MG-200UN 1 EACH TAB PO SCH (08:56)
[2020-03-27] MEDS: CYANOCOBALAMIN 500 MCG TAB PO SCH (08:56)
[2020-03-27] MEDS: ASPIRIN 81 MG PO SCH ×2 (08:56→18:15)
[2020-03-27] MEDS: ATORVASTATIN 80 MG TAB PO SCH (08:56)
[2020-03-27] MEDS: CHOLECALCIFEROL 1,000 UNIT TAB PO SCH (08:57)
[2020-03-27] MEDS: DOCUSATE 100 MG CAP PO SCH (08:57)
[2020-03-27] MEDS: PIOGLITAZONE 15 MG TAB PO SCH (08:58)
[2020-03-27] MEDS: BICALUTAMIDE 50 MG TAB PO SCH (08:58)
[2020-03-27] MEDS: INSULIN DETEMIR (LEVEMIR) 100 UNIT/ML SYR SQ SCH (08:59)
[2020-03-27] MEDS ORDERED: VERAPAMIL SR 180 MG TABLET.ER PO SCH (09:00)
[2020-03-27] MEDS ORDERED: METOPROLOL TARTRATE 25 MG TAB PO SCH (09:00)
[2020-03-27 12:14] LABS: Glucose,Whole Blood 216 mg/dL (75-99)
[2020-03-27] MEDS: TAMSULOSIN 0.4 MG CAP.ER.24H PO SCH (12:35)
--- NOTE | 2020-03-27 13:03 | P.PN ---
Subjective Progress Note Date: 03/27/20 CHIEF COMPLAINT: SVT HISTORY OF PRESENT ILLNESS: Patient examined at the bedside. He underwent a cardiac catheterization yesterday with Dr. Huang with PTCA and stenting of the proximal LAD with 2 drug-eluting stents and orbital arthrectomy of proximal LAD. Patient also had another episode of SVT this morning. He received adenosine and converted back to sinus rhythm. PHYSICAL EXAM: VITAL SIGNS: Reviewed. GENERAL: Well-developed in no acute distress. NECK: Supple. No JVD or thyromegaly LUNGS: Respirations even and unlabored. Lungs essentially clear to auscultation bilaterally. HEART: Regular rate and rhythm. S1 and S2 heard. EXTREMITIES: Normal range of motion. No clubbing or cyanosis. Peripheral pulses intact. No lower extremity edema ASSESSMENT: 1. Elevated troponin, status post cardiac catheterization with stent of the proximal LAD 2 2. SVT 3. Hypertension 4. Diabetes mellitus PLAN: -Continue current cardiac medications -Decrease aspirin to 81 mg -Metoprolol increased to 75 mg twice a day -Increase verapamil to 180 mg daily -Patient to undergo cardiac ablation with Dr. Delarosa Nurse practitioner note has been reviewed by physician. Signing provider agrees with the documented findings, assessment, and plan of care. Objective - Vital Signs Vital signs: Vital Signs Temp 98.2 F 03/27/20 08:00 Pulse 72 03/27/20 08:00 Resp 16 03/27/20 08:00 BP 115/74 03/27/20 08:00 Pulse Ox 98 03/27/20 08:00 Intake & Output 03/26/20 03/27/20 03/27/20 18:59 06:59 18:59 Intake Total 195 236 240 Balance 195 236 240 Weight 93.6 kg Intake: IV 195 Oral 236 240 Other: Voiding Method Diaper Diaper Incontinent Incontinent # Voids 1 2 2 # Bowel Movements 1 - Labs CBC & Chem 7: 03/27/20 06:57 03/27/20 06:57 Labs: Abnormal Lab Results - Last 24 Hours (Table) 03/26/20 03/26/20 03/27/20 Range/Units 16:42 20:35 06:27 RBC (4.30-5.90) m/uL Hgb (13.0-17.5) gm/dL Hct (39.0-53.0) % Lymphocytes # (1.0-4.8) k/uL Glucose (74-99) mg/dL POC Glucose (mg/dL) 123 H 301 H 172 H (75-99) mg/dL 03/27/20 03/27/20 Range/Units 06:57 06:57 RBC 4.15 L (4.30-5.90) m/uL Hgb 12.2 L (13.0-17.5) gm/dL Hct 37.6 L (39.0-53.0) % Lymphocytes # 0.6 L (1.0-4.8) k/uL Glucose 165 H (74-99) mg/dL POC Glucose (mg/dL) (75-99) mg/dL
--- NOTE | 2020-03-27 13:54 | P.PN ---
Subjective patient was admitted for SVT. Patient received and Adenosine with resolution of symptoms patient has mildly elevated troponins patient was treated for non-ST elevation microinfarction p, patient had a cardiac catheterizationand received 2 stents. 03/27/2020 Patient will undergo EP evaluation and possible ablation Constitutional: Denied any fatigue denied any fever. Cardio vascular: denied any chest pain, palpitations Gastrointestinal denied any nausea vomiting Pulmonary: Denied any shortness of breath cough Neurologic denied any new focal deficits All inpatient medications were reviewed and appropriate changes in these medications as dictated in the interval history and assessment and plan. Objective - Vital Signs Vital signs: Vital Signs Temp 98.2 F 03/27/20 08:00 Pulse 72 03/27/20 08:00 Resp 16 03/27/20 11:57 BP 115/74 03/27/20 08:00 Pulse Ox 98 03/27/20 08:00 Intake & Output 03/26/20 03/27/20 03/27/20 18:59 06:59 18:59 Intake Total 195 236 240 Balance 195 236 240 Weight 93.6 kg Intake: IV 195 Oral 236 240 Other: Voiding Method Diaper Diaper Diaper Incontinent Incontinent Incontinent # Voids 1 2 2 # Bowel Movements 1 - Exam PHYSICAL EXAMINATION: GENERAL: The patient is alert and oriented x3, not in any acute distress. Well developed, well nourished. HEENT: Pupils are round and equally reacting to light. EOMI. No scleral icterus. No conjunctival pallor. Normocephalic, atraumatic. No pharyngeal erythema. No thyromegaly. CARDIOVASCULAR: S1 and S2 present. No murmurs, rubs, or gallops. PULMONARY: Chest is clear to auscultation, no wheezing or crackles. ABDOMEN: Soft, nontender, nondistended, normoactive bowel sounds. No palpable or ganomegaly. MUSCULOSKELETAL: No joint swelling or deformity. EXTREMITIES: No cyanosis, clubbing, or pedal edema. NEUROLOGICAL: Gross neurological examination did not reveal any focal deficits. SKIN: No rashes. - Labs CBC & Chem 7: 03/27/20 06:57 03/27/20 06:57 Labs: Abnormal Lab Results - Last 24 Hours (Table) 03/26/20 03/26/20 03/27/20 Range/Units 16:42 20:35 06:27 RBC (4.30-5.90) m/uL Hgb (13.0-17.5) gm/dL Hct (39.0-53.0) % Lymphocytes # (1.0-4.8) k/uL Glucose (74-99) mg/dL POC Glucose (mg/dL) 123 H 301 H 172 H (75-99) mg/dL 03/27/20 03/27/20 03/27/20 Range/Units 06:57 06:57 12:14 RBC 4.15 L (4.30-5.90) m/uL Hgb 12.2 L (13.0-17.5) gm/dL Hct 37.6 L (39.0-53.0) % Lymphocytes # 0.6 L (1.0-4.8) k/uL Glucose 165 H (74-99) mg/dL POC Glucose (mg/dL) 216 H (75-99) mg/dL Assessment and Plan Plan: -Supraventricular tachycardia: Resolved and patient will be continued on v erapamil, patient will undergo EP evaluation and possible ablation - non-ST elevation myocardial infarction: Patient is status post cardiac catheterization and stenting -Mild hypovolemic hyponatremia: improved with IV fluids -Coronary artery disease -Type 2 diabetes mellitus: Hold off on metformin patient will be started on sliding scale insulin and rest of his home regimen will be continued 7 gastroesophageal reflux disease -Hyperlipidemia -Hypertension -Peripheral vascular disease For above-mentioned chronic problems patient will be resumed and continued on appropriate home medications
--- NOTE | 2020-03-27 14:05 | P.CRDCN ---
History of Present Illness History of present illness: This is Dr. Delarosa dictating a consult on this patient The patient was interviewed and examined Electrical physiology consult requested by Dr. 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 Documented SVT with Kevin sign consistent with AV jasmyn reentry Abnormal cardiac enzymes Subsequently underwent atherectomy and stenting, LAD History of CAD ROS: No fever chills or rigors, no cough, phlegm or expectoration, no nausea, vomiting or diarrhea, no hematuria, dysuria, no musculoskeletal complaints, no strokes or seizures, no skin lesions. EXAMINATION: Afebrile 98.2F, pulse rate in the 70s in sinus rhythm During SVT his heart rates under the 150 beats a minute Blood pressure 150-74 mmHg pulse ox 98% on 2 L oxygen Heart sounds S1 and S2 are normal no murmurs Breath sounds are clear no rhonchi no crackles Abdomen soft Extremities warm no edema Following Juan C stenting groin is healed well no hematoma REVIEW OF LABS, ECG & MEDICAL DATA sodium 137, potassium 4.2, BUN 20 and creatinine 0.84 Hemoglobin 12.2 Past Medical History Past Medical History: Atrial Fibrillation, Coronary Artery Disease (CAD), Cancer, Diabetes Mellitus, Eye Disorder, GERD/Reflux, Hearing Disorder / Courtney fness, Hyperlipidemia, Hypertension, Osteoarthritis (OA), Sleep Apnea/CPAP/BIPAP, Supraventricular Tachycardia (SVT), Vascular Disorder Additional Past Medical History / Comment(s): IDDM type II, DKA, bowel cancer with resection, prostate cancer with radiation tx, BPH, L side of brain aneurysm that is being monitored, BURT with Cpap device, allergic rhinitis, UTI, [place] bilat erally/aides, bilateral eye cataracts and glaucoma, arthritis bilateral knees with replacements. History of Any Multi-Drug Resistant Organisms: None Reported Past Surgical History: Bowel Resection, Ear Surgery, Heart Catheterization With Stent, Hernia Repair, Orthopedic Surgery, Prostate Surgery Additional Past Surgical History / Comment(s): 05/27/15 L mastoidectomy in which the ear was removed and holes in bone were cemented with shavings from bone in his leg -done at [facility], HERNIA SURG bilateral inguinal and umbilical, LT KNEE arthroscopy and then L total knee arthroplasty, R total knee arthroplasty, L carotid endartectomy, bilat EAR TUBE, colonoscopy, vasectomy, prostate biopsy/rods inserted for radiation tx. Past Anesthesia/Blood Transfusion Reactions: No Reported Reaction Date of Last Stent Placement:: 2015 Smoking Status: Former smoker - Past Family History Mother Family Medical History: Cancer Additional Family Medical History / Comment(s): breast Brother(s) Family Medical History: Cancer Additional Family Medical History / Comment(s): Wegeners granulomatosis, prostate cancer Father Family Medical History: Cancer, CVA/TIA Additional Family Medical History / Comment(s): Prostate cancer, CVA Medications and Allergies Home Medications Medication Instructions Recorded Confirmed Type Cyanocobalamin (Vitamin B-12) 1,000 mcg PO DAILY 10/04/16 03/25/20 History [Vitamin B-12] lisinopriL [Zestril] 5 mg PO DAILY 10/04/16 03/25/20 History Aspirin EC [Ecotrin Low Dose] 162 mg PO DAILY 01/14/20 03/25/20 History Bicalutamide [Casodex] 50 mg PO DAILY 01/14/20 03/25/20 History Latanoprost/Pf [Latanoprost 0.005% 1 drop BOTH EYES HS 01/14/20 03/25/20 History Eye Drop] Pioglitazone HCl 15 mg PO DAILY 01/14/20 03/25/20 History Tamsulosin HCl [Flomax] 0.4 mg PO DAILY 01/14/20 03/25/20 History Timolol 0.5% Ophth Soln [Timoptic 1 drop BOTH EYES DAILY 01/14/20 03/25/20 History 0.5% Ophth Soln] Rosuvastatin Calcium 20 mg PO DAILY #30 tab 01/15/20 03/25/20 Rx Metoprolol Tartrate [Lopressor] 50 mg PO BID 30 Days #60 tab 01/18/20 03/25/20 Rx Canagliflozin [Invokana] 300 mg PO DAILY 02/14/20 03/25/20 History Cholecalciferol [Vitamin D3 (25 1,000 unit PO DAILY 02/14/20 03/25/20 History Mcg = 1000 Iu)] Exenatide Microspheres [Bydureon 2 mg SQ MO 02/14/20 03/25/20 History Pen] INSULIN ASPART (NovoLOG) [NovoLOG 10 unit SQ AC-TID 02/14/20 03/25/20 History (formulary)] Insulin Glargine,Hum.rec.anlog 40 unit SQ DAILY 02/14/20 03/25/20 History [Lantus Solostar] metFORMIN HCL [Glucophage] 1,000 mg PO AC-BID 02/14/20 03/25/20 History Calcium Carbonate/Vitamin D3 1 tab PO DAILY 03/25/20 03/25/20 History [Calcium 500-Vit D3 600 Tablet] Verapamil HCl [Verapamil ER] 180 mg PO DAILY 03/25/20 03/25/20 History Allergies Allergy/AdvReac Type Severity Reaction Status Date / Time cashew nut Allergy Severe Anaphylaxis Verified 02/14/20 17:27 tree nut Allergy Severe Anaphylaxis Verified 02/14/20 17:27 Physical Exam Vitals: Vital Signs Temp Pulse Resp BP Pulse Ox 03/27/20 11:57 16 03/27/20 08:00 98.2 F 72 16 115/74 98 03/27/20 05:26 140 H 94/55 03/27/20 04:00 98.2 F 69 16 124/70 98 03/26/20 23:02 67 14 03/26/20 23:00 98 F 67 14 120/64 97 03/26/20 22:59 98.2 F 78 18 110/62 95 03/26/20 20:00 67 14 03/26/20 16:19 74 20 141/80 97 03/26/20 16:00 97.6 F 75 20 148/81 96 03/26/20 15:19 72 20 148/81 96 03/26/20 14:49 67 20 147/92 97 03/26/20 14:19 69 20 137/81 97 Intake and Output 03/26/20 03/27/20 03/27/20 22:59 06:59 14:59 Intake Total 236 240 Balance 236 240 Intake: Oral 236 240 Other: Voiding Method Diaper Diaper Diaper Incontinent Incontinent Incontinent # Voids 4 2 2 Weight 93.6 kg Results 08/27/20 06:57 03/27/20 06:57 CBC 03/27/20 Range/Units 06:57 WBC 7.4 (3.8-10.6) k/uL RBC 4.15 L (4.30-5.90) m/uL Hgb 12.2 L (13.0-17.5) gm/dL Hct 37.6 L (39.0-53.0) % Plt Count 220 (150-450) k/uL Comprehensive Metabolic Panel 03/27/20 Range/Units 06:57 Sodium 137 (137-145) mmol/L Potassium 4.2 (3.5-5.1) mmol/L Chloride 107 (98-107) mmol/L Carbon Dioxide 22 (22-30) mmol/L BUN 20 (9-20) mg/dL Creatinine 0.84 (0.66-1.25) mg/dL Glucose 165 H (74-99) mg/dL Calcium 8.6 (8.4-10.2) mg/dL Current Medications Generic Name Dose Route Start Last Admin Trade Name Freq PRN Reason Stop Dose Admin Al Hydroxide/Mg Hydroxide 30 ml 03/26/20 13:34 Maalox PO Q4HR PRN Heartburn Alprazolam 0.25 mg 03/26/20 10:31 Xanax PO Q6HR PRN Mild Anxiety Alprazolam 0.5 mg 03/26/20 10:31 Xanax PO Q6HR PRN Moderate Anxiety Aspirin 81 mg 03/27/20 08:30 03/27/20 08:56 Aspirin PO 81 mg DAILY CARLYLE Administration Atorvastatin Calcium 80 mg 03/27/20 09:00 03/27/20 08:56 Lipitor PO 80 mg DAILY CARLYLE Administration Atropine Sulfate 0.5 mg 03/26/20 13:34 Atropine IV ONCE PRN Symptomatic Bradycardia Bicalutamide 50 mg 03/26/20 09:00 03/27/20 08:58 Casodex PO 50 mg DAILY CARLYLE Administration Calcium Carbonate 1 each 03/27/20 09:00 03/27/20 08:56 Oscal 500+D PO 1 each DAILY CARLYLE Administration Cholecalciferol 1,000 unit 03/26/20 09:00 03/27/20 08:57 Vitamin D3 (25 Mcg = 1000 Iu) PO 1,000 unit DAILY CARLYLE Administration Clopidogrel Bisulfate 75 mg 03/27/20 09:00 03/27/20 08:56 Plavix PO 75 mg DAILY CARLYLE Administration Cyanocobalamin 1,000 mcg 03/26/20 09:00 03/27/20 08:56 Vitamin B-12 PO 1,000 mcg DAILY CARLYLE Administration Docusate Sodium 100 mg 03/26/20 09:00 03/27/20 08:57 Colace PO 100 mg DAILY CARLYLE Administration Sodium Chloride 1,000 mls @ 20 mls/hr 03/25/20 12:45 03/26/20 11:18 Saline 0.9% IV Not Given .Q24H CARLYLE Sodium Chloride 1,000 mls @ 20 mls/hr 03/27/20 08:30 Saline 0.9% IV .Q24H CARLYLE Insulin Aspart 0 unit 03/25/20 17:30 03/27/20 06:30 Novolog SQ Not Given ACHS [facility] Protocol Insulin Detemir 40 unit 03/26/20 09:00 03/27/20 08:59 Levemir SQ 40 unit DAILY CARLYLE Administration Latanoprost 1 drops 03/25/20 21:00 03/26/20 20:54 Xalatan 0.005% BOTH EYES 1 drops HS [facility] Administration Metoprolol Tartrate 75 mg 03/27/20 09:00 03/27/20 08:56 Lopressor PO 75 mg BID CARLYLE Administration Miscellaneous Information 1 each 03/26/20 13:34 Rx Info: Iv Contrast Was Given MISCELLANE 03/28/20 13:34 DAILY PRN Per Protocol Nitroglycerin 0.4 mg 03/25/20 12:32 Nitrostat SUBLINGUAL Q5M PRN Chest Pain Canagliflozin [ 300 mg 03/26/20 09:00 03/27/20 08:59 Invokana] 300 Mg PO Not Given DAILY [facility] Non-Formulary Medication 2 mg 03/31/20 13:32 Exenatide Microspheres [Bydureon Pen] SQ MO CARLYLE Pioglitazone HCl 15 mg 03/26/20 09:00 03/27/20 08:58 Actos PO 15 mg DAILY CARLYLE Administration Tamsulosin HCl 0.4 mg 03/26/20 09:00 03/27/20 12:35 Flomax PO 0.4 mg DAILY [facility] Administration Timolol Maleate 1 drops 03/26/20 09:00 03/26/20 09:00 Timoptic BOTH EYES 1 drops DAILY CARLYLE Administration Verapamil HCl 180 mg 03/27/20 09:00 03/27/20 08:59 Isoptin Sr PO 180 mg DAILY CARLYLE Administration Zolpidem Tartrate 5 mg 03/26/20 13:34 Ambien PO HS PRN Insomnia Intake and Output 03/26/20 03/27/20 03/27/20 22:59 06:59 14:59 Intake Total 236 240 Balance 236 240 Intake: Oral 236 240 Other: Voiding Method Diaper Diaper Diaper Incontinent Incontinent Incontinent # Voids 4 2 2 Weight 93.6 kg 03/27/20 06:57 03/27/20 06:57
[2020-03-27 14:34] VITALS: BMI 30.4
[2020-03-27 17:00] LABS: Glucose,Whole Blood 115 mg/dL (75-99)
[2020-03-27] MEDS: TIMOLOL 0.5% OPHTH DROPS 5 ML BTL BOTH EYES SCH (18:15)
--- NOTE | 2020-03-27 18:24 | P.PN ---
Progress Note - Text Informed by anesthesia at 6:15 PM that they will not be able to, this case as scheduled, involving EP study and radiofrequency ablation for recurrent drug refractory SVT Dr BALTA Huang, patient's primary station examiner informed Discussed with patient and his
[2020-03-27 21:01] LABS: Glucose,Whole Blood 303 mg/dL (75-99)
[2020-03-27] MEDS: METOPROLOL TARTRATE 50 MG TAB PO SCH (21:28)
[2020-03-27] MEDS: LATANOPROST 0.005% OPHTH DROPS 2.5 ML BTL BOTH EYES SCH (21:31)
[2020-03-28 06:32] LABS: Glucose,Whole Blood 146 mg/dL (75-99)
[2020-03-28] MEDS: INSULIN ASPART (NovoLOG) 100 UNIT/ML VIAL SQ SCH ×4 (06:51→20:35)
--- NOTE | 2020-03-28 08:03 | P.PN ---
Progress Note - Text Patient sitting comfortably in bed Yesterday procedure could not be performed because anesthesia was not available, despite the case bordered before 9 AM with [employer] staff And anesthesia Patient admitted with recurrent SVT, failed combination of verapamil and metoprolol Admitted with a non-Q-wave myocardial infarction triggered by SVT. Status post atherectomy and stenting of the LAD He should remain in the hospital and go home only after EP study and ablation Restart verapamil and metoprolol Hold medications on Tuesday and Tuesday, verapamil and metoprolol Patient scheduled for an EP study and ablation with anesthesia on Tuesday 7:15 AM Patient is not safe for discharge since he experiences recurrent episodes of SVT
[2020-03-28] MEDS: SODIUM CHLORIDE 0.9% 1,000 ML IV SCH ×3 (09:55→20:36)
[2020-03-28] MEDS: TAMSULOSIN 0.4 MG CAP.ER.24H PO SCH (09:56)
[2020-03-28] MEDS: PIOGLITAZONE 15 MG TAB PO SCH (09:56)
[2020-03-28] MEDS: ASPIRIN 81 MG PO SCH (09:56)
[2020-03-28] MEDS: VERAPAMIL SR 180 MG TABLET.ER PO SCH (09:56)
[2020-03-28] MEDS: CHOLECALCIFEROL 1,000 UNIT TAB PO SCH (09:57)
[2020-03-28] MEDS: CALCIUM CARB-VIT D 500MG-200UN 1 EACH TAB PO SCH (09:57)
[2020-03-28] MEDS: CYANOCOBALAMIN 500 MCG TAB PO SCH (09:57)
[2020-03-28] MEDS: ATORVASTATIN 80 MG TAB PO SCH (09:57)
[2020-03-28] MEDS: DOCUSATE 100 MG CAP PO SCH (09:57)
[2020-03-28] MEDS: METOPROLOL TARTRATE 50 MG TAB PO SCH ×2 (09:58→20:34)
[2020-03-28] MEDS: TIMOLOL 0.5% OPHTH DROPS 5 ML BTL BOTH EYES SCH (09:58)
[2020-03-28] MEDS: INSULIN DETEMIR (LEVEMIR) 100 UNIT/ML SYR SQ SCH (10:00)
[2020-03-28] MEDS: BICALUTAMIDE 50 MG TAB PO SCH (10:04)
--- NOTE | 2020-03-28 10:51 | P.PN ---
Subjective patient was admitted for SVT. Patient received and Adenosine with resolution of symptoms patient has mildly elevated troponins patient was treated for non-ST elevation microinfarction p, patient had a cardiac catheterizationand received 2 stents. 03/27/2020 Patient will undergo EP evaluation and possible ablation. 03/28/2020 Patient will undergo an ablation procedure and deep evaluation on Tuesday. It was recommended to hold off metoprolol and verapamil day before the procedure that is on Tuesday. Constitutional: Denied any fatigue denied any fever. Cardio vascular: denied any chest pain, palpitations Gastrointestinal denied any nausea vomiting Pulmonary: Denied any shortness of breath cough Neurologic denied any new focal deficits All inpatient medications were reviewed and appropriate changes in these medications as dictated in the interval history and assessment and plan. Objective - Vital Signs Vital signs: Vital Signs Temp 98.1 F 03/28/20 08:00 Pulse 67 03/28/20 08:00 Resp 20 03/28/20 08:00 BP 122/76 03/28/20 08:00 Pulse Ox 99 03/28/20 08:00 Intake & Output 03/27/20 03/28/20 03/28/20 18:59 06:59 18:59 Intake Total 840 Output Total 540 Balance 840 -540 Weight 93.6 kg 92.7 kg Intake: Intake, IV Titration 600 Amount Sodium Chloride 0.9% 1, 600 000 ml @ 75 mls/hr IV . [id number] [facility] Rx#:[id number] Oral 240 Output: Urine 540 Other: Voiding Method Diaper Diaper Diaper Incontinent Incontinent Incontinent # Voids 3 1 - Exam PHYSICAL EXAMINATION: GENERAL: The patient is alert and oriented x3, not in any acute distress. Well developed, well nourished. HEENT: Pupils are round and equally reacting to light. EOMI. No scleral icterus. No conjunctival pallor. Normocephalic, atraumatic. No pharyngeal erythema. No thyromegaly. CARDIOVASCULAR: S1 and S2 present. No murmurs, rubs, or gallops. PULMONARY: Chest is clear to auscultation, no wheezing or crackles. ABDOMEN: Soft, nontender, nondistended, normoactive bowel sounds. No palpable organomegaly. MUSCULOSKELETAL: No joint swelling or deformity. EXTREMITIES: No cyanosis, clubbing, or pedal edema. NEUROLOGICAL: Gross neurological examination did not reveal any focal deficits. SKIN: No rashes. - Labs CBC & Chem 7: 03/27/20 06:57 03/27/20 06:57 Labs: Abnormal Lab Results - Last 24 Hours (Table) 03/27/20 03/27/20 03/27/20 Range/Units 12:14 16:58 20:42 POC Glucose (mg/dL) 216 H 115 H 303 H (75-99) mg/dL 03/28/20 Range/Units 06:15 POC Glucose (mg/dL) 146 H (75-99) mg/dL Assessment and Plan Plan: -Supraventricular tachycardia: Resolved and patient will be continued on verapamil, patient will undergo EP evaluation and possible ablationon Tuesday. Need to hold metoprolol and verapamil on Tuesday - non-ST elevation myocardial infarction: Patient is status post cardiac catheterization and stenting -Mild hypovolemic hyponatremia: improved with IV fluids -Coronary artery disease -Type 2 diabetes mellitus: Hold off on metformin patient will be started on sliding scale insulin and rest of his home regimen will be continued 7 gastroesophageal reflux disease -Hyperlipidemia -Hypertension -Peripheral vascular disease For above-mentioned chronic problems patient will be resumed and continued on appropriate home medications
[2020-03-28 11:51] LABS: Glucose,Whole Blood 205 mg/dL (75-99)
--- NOTE | 2020-03-28 13:10 | P.PN ---
Subjective Progress Note Date: 03/28/20 CHIEF COMPLAINT: SVT HISTORY OF PRESENT ILLNESS: Patient examined at the bedside. He underwent a cardiac catheterization with Dr. Huang with PTCA and stenting of the proximal LAD with 2 drug-eluting stents and orbital arthrectomy of proximal LAD. Patient denied shortness of breath. He denies chest pain. Vital signs are stable. PHYSICAL EXAM: VITAL SIGNS: Reviewed. GENERAL: Well-developed in no acute distress. NECK: Supple. No JVD or thyromegaly LUNGS: Respirations even and unlabored. Lungs essentially clear to auscultation bilaterally. HEART: Regular rate and rhythm. S1 and S2 heard. EXTREMITIES: Normal range of motion. No clubbing or cyanosis. Peripheral pulses intact. No lower extremity edema ASSESSMENT: 1. Elevated troponin, status post cardiac catheterization with stent of the proximal LAD 2 2. SVT 3. Hypertension 4. Diabetes mellitus PLAN: -Continue current cardiac medications -Patient to undergo cardiac ablation with Dr. Delarosa on Tuesday Nurse practitioner note has been reviewed by physician. Signing provider agrees with the documented findings, assessment, and plan of care. Objective - Vital Signs Vital signs: Vital Signs Temp 98.1 F 03/28/20 08:00 Pulse 67 03/28/20 08:00 Resp 20 03/28/20 08:00 BP 122/76 03/28/20 08:00 Pulse Ox 99 03/28/20 08:00 Intake & Output 03/27/20 03/28/20 03/28/20 18:59 06:59 18:59 Intake Total 840 Output Total 540 Balance 840 -540 Weight 93.6 kg 92.7 kg Intake: Intake, IV Titration 600 Amount Sodium Chloride 0.9% 1, 600 000 ml @ 75 mls/hr IV . [id number] [facility] Rx#:[id number] Oral 240 Output: Urine 540 Other: Voiding Method Diaper Diaper Diaper Incontinent Incontinent Incontinent # Voids 3 1 - Labs CBC & Chem 7: 03/27/20 06:57 03/27/20 06:57 Labs: Abnormal Lab Results - Last 24 Hours (Table) 03/27/20 03/27/20 03/27/20 Range/Units 12:14 16:58 20:42 POC Glucose (mg/dL) 216 H 115 H 303 H (75-99) mg/dL 03/28/20 Range/Units 06:15 POC Glucose (mg/dL) 146 H (75-99) mg/dL
[2020-03-28 17:22] LABS: Glucose,Whole Blood 259 mg/dL (75-99)
[2020-03-28 20:24] LABS: Glucose,Whole Blood 358 mg/dL (75-99)
[2020-03-28] MEDS: LATANOPROST 0.005% OPHTH DROPS 2.5 ML BTL BOTH EYES SCH (20:35)
[2020-03-29 06:24] LABS: Glucose,Whole Blood 162 mg/dL (75-99)
[2020-03-29] MEDS: INSULIN ASPART (NovoLOG) 100 UNIT/ML VIAL SQ SCH ×5 (06:48→20:47)
[2020-03-29 07:00] LABS: African American GFR (CKD) >90 (>60 ml/min/1.73 sqM); Anion Gap 6 mmol/L; Blood Urea Nitrogen 19 mg/dL (9-20); Calcium 8.5 mg/dL (8.4-10.2); Carbon Dioxide 25 mmol/L (22-30); Chloride 105 mmol/L (98-107); Glucose 144 mg/dL (74-99); Non-African American GFR(CKD) 86 (>60 ml/min/1.73 sqM); Potassium 4.4 mmol/L (3.5-5.1); Sodium 136 mmol/L (137-145)
[2020-03-29] MEDS: SODIUM CHLORIDE 0.9% 1,000 ML IV SCH ×3 (10:46→23:54)
[2020-03-29] MEDS: ASPIRIN 81 MG PO SCH (10:47)
[2020-03-29] MEDS: ATORVASTATIN 80 MG TAB PO SCH (10:47)
[2020-03-29] MEDS: BICALUTAMIDE 50 MG TAB PO SCH (10:48)
[2020-03-29] MEDS: CALCIUM CARB-VIT D 500MG-200UN 1 EACH TAB PO SCH (10:48)
[2020-03-29] MEDS: DOCUSATE 100 MG CAP PO SCH (10:49)
[2020-03-29] MEDS: CLOPIDOGREL 75 MG TAB PO SCH (10:49)
[2020-03-29] MEDS: TAMSULOSIN 0.4 MG CAP.ER.24H PO SCH (10:49)
[2020-03-29] MEDS: METOPROLOL TARTRATE 50 MG TAB PO SCH ×2 (10:49→20:46)
[2020-03-29] MEDS: CYANOCOBALAMIN 500 MCG TAB PO SCH (10:49)
[2020-03-29] MEDS: CHOLECALCIFEROL 1,000 UNIT TAB PO SCH (10:49)
[2020-03-29] MEDS: VERAPAMIL SR 180 MG TABLET.ER PO SCH (10:50)
[2020-03-29] MEDS: TIMOLOL 0.5% OPHTH DROPS 5 ML BTL BOTH EYES SCH (10:50)
[2020-03-29] MEDS: PIOGLITAZONE 15 MG TAB PO SCH (10:50)
[2020-03-29] MEDS: INSULIN DETEMIR (LEVEMIR) 100 UNIT/ML SYR SQ SCH (10:50)
[2020-03-29 11:40] LABS: Glucose,Whole Blood 251 mg/dL (75-99)
--- NOTE | 2020-03-29 13:05 | P.PN ---
Subjective Patient is seen and examined sitting up in bed in no acute distress. He denies symptoms of chest pain, shortness of breath, dizziness or palpitations. He has had no further episodes of SVT. Blood pressure 125/61 heart rate 71 afebrile maintaining oxygen saturation on room air. Laboratory data reviewed, sodium 136, potassium 4.4, creatinine 0.81. Currently maintained on aspirin 81 mg daily, Plavix 75 mg daily, atorvastatin 80 mg daily, Lopressor 75 mg twice a day and verapamil 180 mg daily. GENERAL: Well-appearing, well-nourished and in no acute distress. NECK: Supple without JVD or thyromegaly. LUNGS: Breath sounds clear to auscultation bilaterally. Respiration equal and unlabored. No wheezes, rales or rhonchi. HEART: Regular rate and rhythm without murmurs, rubs or gallops. S1 and S2 heard. EXTREMITIES: Normal range of motion, no edema. No clubbing or cyanosis. Peripheral pulses intact. ASSESSMENT Non-ST elevated myocardial infarction status post revascularization to the proximal LAD Supraventricular tachycardia Hypertension Diabetes mellitus PLAN Continue current medical regimen. Patient will undergo SVT ablation on Tuesday with Dr. Delarosa. Nurse Practitioner note has been reviewed, I agree with a documented findings and plan of care. Patient was seen and examined. Objective - Vital Signs Vital signs: Vital Signs Temp 98.1 F 03/29/20 08:55 Pulse 71 03/29/20 08:55 Resp 18 03/29/20 08:55 BP 125/61 03/29/20 08:55 Pulse Ox 97 03/29/20 08:55 Intake & Output 03/28/20 03/29/20 03/29/20 18:59 06:59 18:59 Intake Total 600 240 Output Total 600 Balance 0 240 Weight 95.3 kg Intake: Oral 600 240 Output: Urine 600 Other: Voiding Method Diaper Diaper Diaper Incontinent Incontinent Incontinent # Voids 1 1 # Bowel Movements 0 - Labs CBC & Chem 7: 03/27/20 06:57 03/29/20 06:13 Labs: Abnormal Lab Results - Last 24 Hours (Table) 03/28/20 03/28/20 03/29/20 Range/Units 17:07 20:19 06:13 Sodium 136 L (137-145) mmol/L Glucose 144 H (74-99) mg/dL POC Glucose (mg/dL) 259 H 358 H (75-99) mg/dL 03/29/20 03/29/20 Range/Units 06:22 11:38 Sodium (137-145) mmol/L Glucose (74-99) mg/dL POC Glucose (mg/dL) 162 H 251 H (75-99) mg/dL
[2020-03-29 17:11] LABS: Glucose,Whole Blood 352 mg/dL (75-99)
--- NOTE | 2020-03-29 17:27 | PN ---
PROGRESS NOTE DATE OF SERVICE: 03/29/2020 This 75-year-old gentleman was admitted with SVT, is being planned for EP studies on Tuesday and possible ablation. No chest pain. No palpitations. No fever. metoprolol to be held on Tuesday. No chest pain. No palpitations. No fever. EXAM: Alert and oriented times three. Pulse 62, blood pressure 129/62, respirations 18, temperature 98.2, pulse ox 99% on 2 L. HEENT is conjunctivae normal. NECK: No JVD. CARDIOVASCULAR: S1, S2 muffled. RESPIRATION: Breath sounds diminished in the bases. A few scattered rhonchi and crackles. ABDOMEN: Soft, nontender. LEGS are no edema. No swelling. NERVOUS SYSTEM: No focal deficits. LABS: WBC 7.3, hemoglobin 12.2. Sodium 136. ASSESSMENT: 1. Supraventricular tachycardia, paroxysmal on Verapamil for EP studies on Tuesday. 2. Non ST-segment elevation myocardial infarction status post cardiac catheterization and stenting. 3. Mild hypovolemic hyponatremia. 4. Coronary artery disease. 5. Diabetes mellitus type 2. 6. Gastroesophageal reflux disease. 7. Hypertension. 8. Hyperlipidemia. 9. Peripheral vascular disease. 10.Hyponatremia mild. 11.Anemia, normocytic anemia of chronic disease. 12.FULL CODE. RECOMMENDATIONS AND DISCUSSION: This 75-year-old gentleman who presented with multiple complex medical issues, we will monitor the patient closely. Continue the current medications, management and symptomatic treatment. Recommend proton pump inhibitors. Otherwise, DVT prophylaxis. Repeat labs. Closely follow with Cardiology. Further recommendations to follow. MMODL / IJN: [id number] / MTDD
[2020-03-29 20:29] LABS: Glucose,Whole Blood 281 mg/dL (75-99)
[2020-03-29] MEDS: LATANOPROST 0.005% OPHTH DROPS 2.5 ML BTL BOTH EYES SCH (20:47)
[2020-03-30 06:55] LABS: Basophils % (A) 0 %; Eosinophils # (A) 0.4 k/uL (0-0.7); Eosinophils % (A) 5 %; HCT 35.6 % (39.0-53.0); HGB 11.5 gm/dL (13.0-17.5); Lymphocytes % (A) 12 %; MCH 29.1 pg (25.0-35.0); MCHC 32.3 g/dL (31.0-37.0); MCV 90.3 fL (80.0-100.0); Mean Platelet Volume 7.3; Monocytes # (A) 0.4 k/uL (0-1.0); Monocytes % (A) 5 %; Neutrophils # (A) 6.3 k/uL (1.3-7.7); Neutrophils % (A) 76 %; Platelet Count 211 k/uL (150-450); RBC 3.94 m/uL (4.30-5.90); RDW 12.7 % (11.5-15.5); WBC 8.3 k/uL (3.8-10.6)
[2020-03-30 07:05] LABS: African American GFR (CKD) >90 (>60 ml/min/1.73 sqM); Anion Gap 8 mmol/L; Blood Urea Nitrogen 18 mg/dL (9-20); Calcium 8.6 mg/dL (8.4-10.2); Carbon Dioxide 25 mmol/L (22-30); Chloride 103 mmol/L (98-107); Glucose 128 mg/dL (74-99); Non-African American GFR(CKD) 89 (>60 ml/min/1.73 sqM); Potassium 4.3 mmol/L (3.5-5.1); Sodium 136 mmol/L (137-145)
[2020-03-30 07:15] LABS: Glucose,Whole Blood 147 mg/dL (75-99)
[2020-03-30] MEDS: INSULIN ASPART (NovoLOG) 100 UNIT/ML VIAL SQ SCH ×7 (07:19→20:21)
[2020-03-30] MEDS: ASPIRIN 81 MG PO SCH (08:50)
[2020-03-30] MEDS: DOCUSATE 100 MG CAP PO SCH (08:50)
[2020-03-30] MEDS: CHOLECALCIFEROL 1,000 UNIT TAB PO SCH (08:50)
[2020-03-30] MEDS: ATORVASTATIN 80 MG TAB PO SCH (08:50)
[2020-03-30] MEDS: CLOPIDOGREL 75 MG TAB PO SCH (08:50)
[2020-03-30] MEDS: CYANOCOBALAMIN 500 MCG TAB PO SCH (08:50)
[2020-03-30] MEDS: CALCIUM CARB-VIT D 500MG-200UN 1 EACH TAB PO SCH (08:50)
[2020-03-30] MEDS: INSULIN DETEMIR (LEVEMIR) 100 UNIT/ML SYR SQ SCH (08:51)
[2020-03-30] MEDS: VERAPAMIL SR 180 MG TABLET.ER PO SCH (08:51)
[2020-03-30] MEDS: METOPROLOL TARTRATE 50 MG TAB PO SCH ×2 (08:51→20:22)
[2020-03-30] MEDS: PIOGLITAZONE 15 MG TAB PO SCH (08:52)
[2020-03-30] MEDS: TAMSULOSIN 0.4 MG CAP.ER.24H PO SCH (08:58)
[2020-03-30] MEDS: SODIUM CHLORIDE 0.9% 1,000 ML IV SCH ×3 (09:02→18:44)
[2020-03-30] MEDS: BICALUTAMIDE 50 MG TAB PO SCH (09:40)
[2020-03-30 12:23] LABS: Glucose,Whole Blood 122 mg/dL (75-99)
[2020-03-30] MEDS: TIMOLOL 0.5% OPHTH DROPS 5 ML BTL BOTH EYES SCH (12:58)
--- NOTE | 2020-03-30 13:43 | P.PN ---
Subjective Patient is seen and examined sitting up in bed in no acute distress. He denies symptoms of chest pain, shortness of breath, dizziness or palpitations. He has had no further episodes of SVT. Blood pressure 135/63 heart rate 80 afebrile and maintaining oxygen saturation on nasal cannula. Telemetry tracings unremarkable, no further SVT. He is seen and examined sitting up in the chair in no acute distress watching movies on his laptop. He denies chest pain, shortness of breath, dizziness or palpitations. Currently maintained on aspirin 81 mg d aily, Plavix 75 mg daily, atorvastatin 80 mg daily, Lopressor 75 mg twice a day and verapamil 180 mg daily. GENERAL: Well-appearing, well-nourished and in no acute distress. NECK: Supple without JVD or thyromegaly. LUNGS: Breath sounds clear to auscultation bilaterally. Respiration equal and unlabored. No wheezes, rales or rhonchi. HEART: Regular rate and rhythm without murmurs, rubs or gallops. S1 and S2 heard. EXTREMITIES: Normal range of motion, no edema. No clubbing or cyanosis. Peripheral pulses intact. ASSESSMENT Non-ST elevated myocardial infarction status post revascularization to the proximal LAD Supraventricular tachycardia Hypertension Diabetes mellitus PLAN Continue current medical regimen. Ablation scheduled for Tuesday with Dr. Delarosa. Nurse Practitioner note has been reviewed, I agree with a documented findings and plan of care. Patient was seen and examined. Objective - Vital Signs Vital signs: Vital Signs Temp 97.9 F 03/30/20 08:10 Pulse 80 03/30/20 08:10 Resp 18 03/30/20 08:10 BP 135/63 03/30/20 08:10 Pulse Ox 100 03/30/20 08:10 Intake & Output 03/29/20 03/30/20 03/30/20 18:59 06:59 18:59 Intake Total 720 1560 Balance 720 1560 Weight 95.1 kg Intake: Oral 720 1560 Other: Voiding Method Diaper Diaper Diaper Incontinent Incontinent Incontinent # Voids 1 1 2 - Labs CBC & Chem 7: 03/30/20 06:21 03/30/20 06:21 Labs: Abnormal Lab Results - Last 24 Hours (Table) 03/29/20 03/29/20 03/30/20 Range/Units 17:10 20:26 06:21 RBC 3.94 L (4.30-5.90) m/uL Hgb 11.5 L (13.0-17.5) gm/dL Hct 35.6 L (39.0-53.0) % Sodium (137-145) mmol/L Glucose (74-99) mg/dL POC Glucose (mg/dL) 352 H 281 H (75-99) mg/dL 03/30/20 03/30/20 03/30/20 Range/Units 06:21 07:14 12:21 RBC (4.30-5.90) m/uL Hgb (13.0-17.5) gm/dL Hct (39.0-53.0) % Sodium 136 L (137-145) mmol/L Glucose 128 H (74-99) mg/dL POC Glucose (mg/dL) 147 H 122 H (75-99) mg/dL
--- NOTE | 2020-03-30 17:16 | PN ---
PROGRESS NOTE DATE OF SERVICE: 03/30/2020 INTERVAL HISTORY: This is a 75-year-old gentleman who was admitted with supraventricular tachycardia, planned for EP study on Tuesday by Cardiology. No chest pain. No palpitations. No fever. Medications are to be stopped on Tuesday. The patient also underwent revascularization of the proximal LAD for non ST-segment elevation myocardial infarction. No chest pain. No palpitations. No fever. PHYSICAL EXAMINATION: GENERAL: Patient is alert and oriented times three. VITAL SIGNS: Pulse 70, blood pressure 130/69, respirations 18, temperature 98.4, pulse ox 100% on room air HEENT: Conjunctivae normal. NECK: No jugular venous distention. RESPIRATORY: Breath sounds diminished at the bases. No rhonchi, no crackles. HEART: S1 and S2, muffled. ABDOMEN: Soft, no tenderness. EXTREMITIES: No edema, no swelling. NERVOUS: No focal deficits. LABS: WBC 8.3, hemoglobin 11.2, sodium 133. ASSESSMENT: 1. Supraventricular tachycardia, paroxysmal on verapamil. EP study on Tuesday. 2. Acute tyt-KU-ecdvvtu-elevation myocardial infarction status post cardiac catheterization and stenting. 3. Mild hypovolemic hyponatremia. 4. *Coronary artery disease history. 5. Diabetes mellitus type 2. 6. Gastroesophageal reflux disease. 7. Hypertension. 8. Hyperlipidemia. 9. History of peripheral vascular disease. 10.Hyponatremia, mild. 11.Anemia, normocytic anemia of chronic disease. 12.FULL CODE. RECOMMENDATIONS AND DISCUSSION: Recommend to continue current management and continue symptomatic treatment. Otherwise at this time continue with antiplatelet agents. Monitor blood sugars closely. Otherwise, medication adjustment on Tuesday per Cardiology and EP study on Tuesday. Prognosis guarded. Further recommendations to follow. MMODL / IJN: [id number] /
[2020-03-30 17:36] LABS: Glucose,Whole Blood 164 mg/dL (75-99)
[2020-03-30 20:01] LABS: Glucose,Whole Blood 235 mg/dL (75-99)
[2020-03-30] MEDS: LATANOPROST 0.005% OPHTH DROPS 2.5 ML BTL BOTH EYES SCH (20:24)
[2020-03-31 07:38] LABS: Basophils % (A) 0 %; Eosinophils # (A) 0.4 k/uL (0-0.7); Eosinophils % (A) 5 %; HCT 35.5 % (39.0-53.0); HGB 11.3 gm/dL (13.0-17.5); Lymphocytes % (A) 13 %; MCH 28.9 pg (25.0-35.0); MCV 90.6 fL (80.0-100.0); Mean Platelet Volume 7.2; Monocytes # (A) 0.5 k/uL (0-1.0); Monocytes % (A) 6 %; Neutrophils # (A) 5.8 k/uL (1.3-7.7); Neutrophils % (A) 74 %; Platelet Count 216 k/uL (150-450); RBC 3.92 m/uL (4.30-5.90); RDW 12.9 % (11.5-15.5); WBC 7.9 k/uL (3.8-10.6)
[2020-03-31 07:45] LABS: Glucose,Whole Blood 136 mg/dL (75-99)
[2020-03-31 07:51] LABS: African American GFR (CKD) >90 (>60 ml/min/1.73 sqM); Anion Gap 8 mmol/L; Blood Urea Nitrogen 16 mg/dL (9-20); Calcium 8.8 mg/dL (8.4-10.2); Carbon Dioxide 26 mmol/L (22-30); Chloride 102 mmol/L (98-107); Glucose 117 mg/dL (74-99); Non-African American GFR(CKD) 84 (>60 ml/min/1.73 sqM); Potassium 4.3 mmol/L (3.5-5.1); Sodium 136 mmol/L (137-145)
[2020-03-31] MEDS: INSULIN DETEMIR (LEVEMIR) 100 UNIT/ML SYR SQ SCH (08:18)
[2020-03-31] MEDS: INSULIN ASPART (NovoLOG) 100 UNIT/ML VIAL SQ SCH ×7 (08:18→20:37)
[2020-03-31] MEDS: TAMSULOSIN 0.4 MG CAP.ER.24H PO SCH (08:19)
[2020-03-31] MEDS: METOPROLOL TARTRATE 50 MG TAB PO SCH (08:19)
[2020-03-31] MEDS: DOCUSATE 100 MG CAP PO SCH (08:19)
[2020-03-31] MEDS: CALCIUM CARB-VIT D 500MG-200UN 1 EACH TAB PO SCH (08:19)
[2020-03-31] MEDS: CHOLECALCIFEROL 1,000 UNIT TAB PO SCH (08:19)
[2020-03-31] MEDS: CLOPIDOGREL 75 MG TAB PO SCH (08:19)
[2020-03-31] MEDS: ATORVASTATIN 80 MG TAB PO SCH (08:20)
[2020-03-31] MEDS: ASPIRIN 81 MG PO SCH (08:20)
[2020-03-31] MEDS: PIOGLITAZONE 15 MG TAB PO SCH (08:20)
[2020-03-31] MEDS: BICALUTAMIDE 50 MG TAB PO SCH (08:20)
[2020-03-31] MEDS: VERAPAMIL SR 180 MG TABLET.ER PO SCH (08:20)
[2020-03-31] MEDS: CYANOCOBALAMIN 500 MCG TAB PO SCH (08:20)
[2020-03-31] MEDS: TIMOLOL 0.5% OPHTH DROPS 5 ML BTL BOTH EYES SCH (08:21)
--- NOTE | 2020-03-31 10:39 | P.PN ---
Subjective Progress Note Date: 03/31/20 CHIEF COMPLAINT: SVT HISTORY OF PRESENT ILLNESS: Patient is s/p cardiac catheterization with Dr. Huang with PTCA and stenting of the proximal LAD with 2 drug-eluting stents and orbital arthrectomy of proximal LAD on 03/26/2020. Patient examined this morning. He is sitting up in the chair. Patient denies shortness of breath. He denies chest pain. Vital signs are stable. No episodes of SVT overnight. PHYSICAL EXAM: VITAL SIGNS: Reviewed. GENERAL: Well-developed in no acute distress. NECK: Supple. No JVD or thyromegaly LUNGS: Respirations even and unlabored. Lungs essentially clear to auscultation bilaterally. HEART: Regular rate and rhythm. S1 and S2 heard. EXTREMITIES: Normal range of motion. No clubbing or cyanosis. Peripheral pulses intact. No lower extremity edema ASSESSMENT: 1. Elevated troponin, status post cardiac catheterization with stent of the proximal LAD 2 2. Recurrent symptomatic SVT 3. Hypertension 4. Diabetes mellitus PLAN: -Continue current cardiac medications aspirin, Lipitor, Plavix, Lopressor, and verapamil -Patient to undergo cardiac ablation with Dr. Delarosa on Tuesday Nurse practitioner note has been reviewed by physician. Signing provider agrees with the documented findings, assessment, and plan of care. Objective - Vital Signs Vital signs: Vital Signs Temp 98.0 F 03/31/20 04:00 Pulse 69 03/31/20 04:00 Resp 18 03/31/20 04:00 BP 126/70 03/31/20 04:00 Pulse Ox 98 03/31/20 04:00 Intake & Output 03/30/20 03/31/20 03/31/20 18:59 06:59 18:59 Intake Total 1979 10 118 Output Total 600 Balance 1380 10 118 Weight 94.6 kg Intake: IV 10 0.9 10 Oral 1979 118 Output: Urine 600 Other: Voiding Method Diaper Toilet Incontinent Diaper Incontinent # Voids 2 2 - Labs CBC & Chem 7: 03/31/20 06:23 03/31/20 06:23 Labs: Abnormal Lab Results - Last 24 Hours (Table) 03/30/20 03/30/20 03/30/20 Range/Units 12:21 17:35 20:00 RBC (4.30-5.90) m/uL Hgb (13.0-17.5) gm/dL Hct (39.0-53.0) % Sodium (137-145) mmol/L Glucose (74-99) mg/dL POC Glucose (mg/dL) 122 H 164 H 235 H (75-99) mg/dL 03/31/20 03/31/20 03/31/20 Range/Units 06:23 06:23 07:41 RBC 3.92 L (4.30-5.90) m/uL Hgb 11.3 L (13.0-17.5) gm/dL Hct 35.5 L (39.0-53.0) % Sodium 136 L (137-145) mmol/L Glucose 117 H (74-99) mg/dL POC Glucose (mg/dL) 136 H (75-99) mg/dL
[2020-03-31 12:26] LABS: Glucose,Whole Blood 233 mg/dL (75-99)
[2020-03-31] MEDS ORDERED: EXENATIDE MICROSPHERES 2 MG SQ SCH (12:30)
[2020-03-31] MEDS: SODIUM CHLORIDE 0.9% 1,000 ML IV SCH ×3 (13:16→20:39)
[2020-03-31] MEDS ORDERED: NON FORMULARY DRUG (Exenatide Microspheres [Bydureon Pen] 2 MG) SQ SCH (13:32)
--- NOTE | 2020-03-31 15:53 | PN ---
PROGRESS NOTE DATE OF SERVICE: 03/31/2020 This is a 75-year-old gentleman admitted with acute non ST elevation myocardial infarction. The patient also slated for EP studies and possible ablation on tomorrow. No chest pain. No palpitations. No fever. PHYSICAL EXAMINATION: Alert and oriented x3. Pulse 69, blood pressure 120/67, respiration 18, temperature is 98 degrees, pulse ox 98% on room air. HEENT: Conjunctivae normal. NECK: No jugular venous distension. CARDIAC: S1, S2, muffled. RESPIRATORY: Breath sounds diminished at the bases, no rhonchi. No crackles. ABDOMEN: Soft. NERVOUS SYSTEM: No focal deficits. LABS: WBC 7.2, hemoglobin 7.3, sodium 136. ASSESSMENT: 1. Acute sri-DK-ewuxasb-elevation myocardial infarction, status post cardiac catheterization and stenting. 2. Supraventricular tachycardia, paroxysmal on verapamil, EP study and possible ablation on Tuesday. 3. Mild hypovolemic hyponatremia. 4. CAD history. 5. Diabetes mellitus type 2. 6. Gastroesophageal reflux disease. 7. Hyperlipidemia. 8. History of peripheral vascular disease. 9. Hyponatremia, mild. 10.Anemia, normocytic anemia of chronic disease. 11.FULL CODE. RECOMMENDATION: Recommend to continue current medications, current management and symptomatic treatment. Otherwise, at this time I would recommend continue with current medication, continue symptomatic treatment. Follow closely with Cardiology, guarded prognosis, further recommendation to follow. MMODL / MELODYN: [id number] /
[2020-03-31 17:23] LABS: Glucose,Whole Blood 213 mg/dL (75-99)
[2020-03-31 20:29] LABS: Glucose,Whole Blood 157 mg/dL (75-99)
[2020-03-31] MEDS: LATANOPROST 0.005% OPHTH DROPS 2.5 ML BTL BOTH EYES SCH (20:38)
[2020-04-01] MEDS: INSULIN ASPART (NovoLOG) 100 UNIT/ML VIAL SQ SCH ×7 (05:45→20:25)
[2020-04-01] MEDS: ASPIRIN 81 MG PO SCH (05:47)
[2020-04-01] MEDS: ATORVASTATIN 80 MG TAB PO SCH (05:47)
[2020-04-01] MEDS: INSULIN DETEMIR (LEVEMIR) 100 UNIT/ML SYR SQ SCH (05:48)
[2020-04-01] MEDS: CHOLECALCIFEROL 1,000 UNIT TAB PO SCH (05:48)
[2020-04-01] MEDS: TAMSULOSIN 0.4 MG CAP.ER.24H PO SCH (05:48)
[2020-04-01] MEDS: CLOPIDOGREL 75 MG TAB PO SCH (05:48)
[2020-04-01] MEDS: CYANOCOBALAMIN 500 MCG TAB PO SCH (05:48)
[2020-04-01] MEDS: CALCIUM CARB-VIT D 500MG-200UN 1 EACH TAB PO SCH (05:48)
[2020-04-01] MEDS: SODIUM CHLORIDE 0.9% 1,000 ML IV SCH ×3 (05:51→20:25)
[2020-04-01] MEDS: TIMOLOL 0.5% OPHTH DROPS 5 ML BTL BOTH EYES SCH (05:52)
[2020-04-01 06:17] LABS: Glucose,Whole Blood 129 mg/dL (75-99)
[2020-04-01] MEDS ORDERED: DEXAMETHASONE SOD PHOSPHATE 10 MG/ML 1 ML VIAL IV ONE (06:45)
[2020-04-01] MEDS ORDERED: LIDOCAINE 1% (10MG/ML) FOR IV START INTRADERMA PRN (06:45)
[2020-04-01 07:08] LABS: Basophils # (A) 0.1 k/uL (0-0.2); Basophils % (A) 1 %; Eosinophils # (A) 0.4 k/uL (0-0.7); Eosinophils % (A) 5 %; HCT 36.6 % (39.0-53.0); HGB 11.6 gm/dL (13.0-17.5); Lymphocytes # (A) 1.1 k/uL (1.0-4.8); Lymphocytes % (A) 13 %; MCH 28.8 pg (25.0-35.0); MCHC 31.8 g/dL (31.0-37.0); MCV 90.5 fL (80.0-100.0); Mean Platelet Volume 7.3; Monocytes # (A) 0.5 k/uL (0-1.0); Monocytes % (A) 6 %; Neutrophils # (A) 6.1 k/uL (1.3-7.7); Neutrophils % (A) 74 %; Platelet Count 228 k/uL (150-450); RBC 4.04 m/uL (4.30-5.90); RDW 12.8 % (11.5-15.5); WBC 8.2 k/uL (3.8-10.6)
[2020-04-01] MEDS ORDERED: ISOPROTERENOL 250 MCG/1.25 ML SYR IV ONE (07:09)
[2020-04-01] MEDS ORDERED: MIDAZOLAM 2 MG/2 ML VIAL ONE (07:09)
[2020-04-01] MEDS ORDERED: fentaNYL (PF) 50 MCG/ML 2 ML AMP ONE (07:09)
[2020-04-01] MEDS ORDERED: HEPARIN SODIUM,PORCINE 5,000 UNIT/ML 1 ML VIAL ONE (07:09)
[2020-04-01 07:16] LABS: Glucose,Whole Blood 137 mg/dL (75-99)
[2020-04-01 07:17] LABS: African American GFR (CKD) >90 (>60 ml/min/1.73 sqM); Anion Gap 8 mmol/L; Blood Urea Nitrogen 23 mg/dL (9-20); Calcium 8.8 mg/dL (8.4-10.2); Carbon Dioxide 24 mmol/L (22-30); Chloride 104 mmol/L (98-107); Glucose 131 mg/dL (74-99); Non-African American GFR(CKD) 86 (>60 ml/min/1.73 sqM); Potassium 4.2 mmol/L (3.5-5.1); Sodium 136 mmol/L (137-145)
[2020-04-01] MEDS ORDERED: IV FLUID CONTINUATION 700 ML IV ONE (07:17)
[2020-04-01] MEDS ORDERED: HEPARIN SOD,PORK IN 0.45% NACL 25,000 UNIT in 0.45% NACL 1 250ML.BAG IV ONE (07:42)
[2020-04-01] MEDS ORDERED: ACETAMINOPHEN TAB 325 MG TAB PO PRN (09:39)
[2020-04-01] MEDS ORDERED: ACETAMINOPHEN IV (For NPO) 1,000 MG in EMPTY BAG 1 BAG IVPB ONE (09:39)
--- NOTE | 2020-04-01 09:46 | P.PRLE ---
RE: Jorge Sidhu Dear Natalia Mr. Jorge Garcia was admitted with SVT associated with abnormal troponins. He underwent coronary angiography and coronary stenting. He continued to experience SVT despite verapamil and metoprolol and was taken to the EP lab. 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 Continue dual antiplatelet therapy Stop verapamil May continue low-dose metoprolol. Patient had a type II HI and status post stenting Thank you for entrusting me with the care of the patient Warm regards Sincerely Roc Delarosa
[2020-04-01] MEDS: LACTATED RINGERS 1,000 ML IV SCH (10:20)
--- NOTE | 2020-04-01 10:29 | PN ---
PROGRESS NOTE Mr. Garcia came in with an SVT recurrent. He is going for an SVT ablation today. He also had a non-ST elevation [place], underwent stenting of a complex LAD lesion with excellent result. He will have SVT evaluation further by lawn maintenance worker, Dr. Delarosa and possible ablation. Vitals are stable, no JVD, S1, S2 heard normally, short systolic murmur noted. Lungs are clear, abdominal exam unchanged. His is cath site is clean and dry with a good pulse. Following the procedure, patient will be discharged tomorrow if he remains stable. MMODL / IJN: [id number] /
[2020-04-01] MEDS: DOCUSATE 100 MG CAP PO SCH (10:37)
[2020-04-01] MEDS: APIXABAN 2.5 MG TABLET PO SCH ×2 (10:37→20:21)
[2020-04-01] MEDS: BICALUTAMIDE 50 MG TAB PO SCH (10:49)
[2020-04-01] MEDS: PIOGLITAZONE 15 MG TAB PO SCH (10:49)
[2020-04-01 11:55] LABS: Glucose,Whole Blood 174 mg/dL (75-99)
--- NOTE | 2020-04-01 12:50 | PCN ---
PROCEDURE NOTE Mr. Sidhu was admitted with the SVT and abnormal troponins. He underwent coronary angiography and coronary stenting to the LAD. He continued to have runs of SVT despite verapamil and metoprolol. He is brought in to the EP lab. Patient was brought to the EP lab in a fasting state. Written informed consent was obtained prior to the procedure. The right and left groins were prepped and draped as per protocol. 1% lidocaine was used for local anesthesia. Venous sheaths were placed in both the veins and diagnostic catheters were positioned in the high right atrium, HIS bundle, right ventricle, coronary sinus. Sinus cycle length 794 milliseconds, CA interval 187 milliseconds, QRS 99 milliseconds, QT 421 milliseconds. AH interval 84 milliseconds, HV interval 35 milliseconds. AVN no change that AVNRT was extremely easily inducible with minimal ventricular pacing at a cycle length of 510 milliseconds. Septal times less than 60 milliseconds. Entrainment was performed from the RV. A long PPI was noted. The VA AV response was noted consistent with AV jasmyn reentry. His refractory PVCs did not advance the tachycardia. A long sheath was placed. An RF ablation catheter 4 mm tip was used. The slow pathway was mapped. RF ablation was applied and junctional rhythm was obtained. Good power and good temperature were noted. Following that, a full EP study was performed on and off Isuprel. Ventricular pacing and ventricular extra stimulation did not induce any AV jasmyn reentry. VA Wenckebach block 380 milliseconds. Sinus node recovery times of 600. 500 and 400 milliseconds were 1214, 1186 and 1220 milliseconds. AV node Wenckebach block 410 milliseconds. AV node ERP 600 back/30 milliseconds. Straight pacing from the high right atrium, straight pacing from the coronary sinus, OS from as well as from the RV was performed. No SVT was induced. Extra stimulation was performed. No SVT was induced. Isuprel was used and then the EP study was performed from the high right atrium, coronary sinus and RV. Straight pacing as well as with extra stimulation up to double extra stimuli was employed. Double extra stimuli were applied. No evidence for slow pathway. No evidence for echo beats. No evidence for SVT. No AV jasmyn reentry. At the end of the p.r.n. interval, the CA interval is stable and in the sedated state. The AV node Wenckebach block was 410 milliseconds on Isuprel. It was 330 milliseconds. All catheters were then removed and patient was transferred back to telemetry. RESULT: Diagnostic EP study revealed very easily inducible AV jasmyn reentrant tachycardia with minimal ventricular pacing. The slow pathway was mapped and radiofrequency ablation was performed and the tachycardia was rendered non and completely noninducible. There was no evidence for slow pathway conduction either. BUN interval remained stable. AV node Wenckebach block in the deep sedated state for 10 milliseconds and with Isuprel 330 milliseconds. MMODL / IJN: [id number] /
--- NOTE | 2020-04-01 14:32 | P.PN ---
Subjective Progress Note Date: 04/01/20 Principal diagnosis: This is a 75-year-old male who was recently admitted with acute non-ST segment elevation myocardial infarction and is being closely monitored. Cardiology foll owing and patient underwent EP study and ablation today with Dr. Delarosa. Patient recently underwent stenting of the LAD. Discussed with at the bedside about discharge planning needs and patient will be returning home once stabilized and discharged. Currently patient denies any chest pain, shortness of breath, or palpitations. Patient is afebrile. No reports of nausea or vomiting and patient tolerating diet. Patient is to remain on bedrest at this time. Will continue to monitor closely. Objective - Vital Signs Vital signs: Vital Signs Temp 97.8 F 04/01/20 11:58 Pulse 74 04/01/20 04:00 Resp 16 04/01/20 13:25 BP 135/73 04/01/20 13:25 Pulse Ox 96 04/01/20 13:25 Intake & Output 03/31/20 04/01/20 04/01/20 18:59 06:59 18:59 Intake Total 758 160 213 Balance 758 160 213 Weight 94.5 kg Intake: IV 213 Intake, IV Titration 160 160 Amount Sodium Chloride 0.9% 1, 160 160 000 ml @ 20 mls/hr IV . Q24H [facility] Rx#:[id number] Oral 598 Other: Voiding Method Toilet Toilet Diaper Diaper Incontinent Incontinent # Voids 1 - Exam Gen: This is a 75-year-old male lying in bed awake, alert and oriented 3, well- developed, well-nourished. Temp is 97.8F, pulse is 74, respirations are 16, blood pressure is 166/88, oxygen saturation is 98% on room air. HEENT: Head is atraumatic, normocephalic. Pupils equal, round. Sclerae is anicteric. NECK: Supple. No JVD. No lymphadenopathy. No thyromegaly. LUNGS: Diminished breath sounds bilaterally with no rhonchi noted. No intercostal retractions. HEART: S1, S2 are muffled. ABDOMEN: Soft. Obese. Bowel sounds are present. No masses. No tenderness. EXTREMITIES: No pedal edema. No calf tenderness. NEUROLOGICAL: Patient is awake, alert and oriented x3. Cranial nerves 2 through 12 are grossly intact. - Labs CBC & Chem 7: 04/01/20 06:31 04/01/20 06:31 Labs: Abnormal Lab Results - Last 24 Hours (Table) 03/31/20 03/31/20 04/01/20 Range/Units 16:48 20:28 05:44 RBC (4.30-5.90) m/uL Hgb (13.0-17.5) gm/dL Hct (39.0-53.0) % Sodium (137-145) mmol/L BUN (9-20) mg/dL Glucose (74-99) mg/dL POC Glucose (mg/dL) 213 H 157 H 129 H (75-99) mg/dL 04/01/20 04/01/20 04/01/20 Range/Units 06:31 06:31 07:05 RBC 4.04 L (4.30-5.90) m/uL Hgb 11.6 L (13.0-17.5) gm/dL Hct 36.6 L (39.0-53.0) % Sodium 136 L (137-145) mmol/L BUN 23 H (9-20) mg/dL Glucose 131 H (74-99) mg/dL POC Glucose (mg/dL) 137 H (75-99) mg/dL 04/01/20 Range/Units 11:54 RBC (4.30-5.90) m/uL Hgb (13.0-17.5) gm/dL Hct (39.0-53.0) % Sodium (137-145) mmol/L BUN (9-20) mg/dL Glucose (74-99) mg/dL POC Glucose (mg/dL) 174 H (75-99) mg/dL Assessment and Plan Assessment: Acute non-ST segment elevation myocardial infarction, status post cardiac catheterization and stenting Supraventricular tachycardia, paroxysmal on verapamil, EP study and status post ablation Mild hypovolemic hyponatremia CAD history Diabetes mellitus type 2 Gastroesophageal reflux disease Hyperlipidemia History of peripheral vascular disease Hyponatremia, mild anemia, normocytic anemia of chronic disease Full code Recommendations and discussion: Recommend to continue current medications, management, and symptomatic treatment. Cardiology following closely. Patient underwent ablation today and will be closely monitored overnight with the possibility of discharge tomorrow. Family at the bedside and discussed the treatment plan. Patient and family states plan is for patient to return home upon discharge. We'll continue to monitor blood sugars closely and treat accordingly. Prognosis is guarded. Further recommendations to follow. Possible discharge in 24 hours.
[2020-04-01 16:56] LABS: Glucose,Whole Blood 190 mg/dL (75-99)
[2020-04-01] MEDS: LATANOPROST 0.005% OPHTH DROPS 2.5 ML BTL BOTH EYES SCH (20:21)
[2020-04-01 20:25] LABS: Glucose,Whole Blood 321 mg/dL (75-99)
[2020-04-02] MEDS: LACTATED RINGERS 1,000 ML IV SCH (04:03)
[2020-04-02 07:21] LABS: Glucose,Whole Blood 254 mg/dL (75-99)
[2020-04-02] MEDS: INSULIN ASPART (NovoLOG) 100 UNIT/ML VIAL SQ SCH ×2 (07:25→07:26)
[2020-04-02] MEDS: TAMSULOSIN 0.4 MG CAP.ER.24H PO SCH (08:00)
[2020-04-02] MEDS: CLOPIDOGREL 75 MG TAB PO SCH (08:00)
[2020-04-02] MEDS: ASPIRIN 81 MG PO SCH (08:00)
[2020-04-02] MEDS: PIOGLITAZONE 15 MG TAB PO SCH (08:00)
[2020-04-02] MEDS: CHOLECALCIFEROL 1,000 UNIT TAB PO SCH (08:00)
[2020-04-02] MEDS: CYANOCOBALAMIN 500 MCG TAB PO SCH (08:00)
[2020-04-02] MEDS: INSULIN DETEMIR (LEVEMIR) 100 UNIT/ML SYR SQ SCH (08:00)
[2020-04-02] MEDS: APIXABAN 2.5 MG TABLET PO SCH (08:00)
[2020-04-02] MEDS: CALCIUM CARB-VIT D 500MG-200UN 1 EACH TAB PO SCH (08:00)
[2020-04-02] MEDS: ATORVASTATIN 80 MG TAB PO SCH (08:00)
[2020-04-02] MEDS: BICALUTAMIDE 50 MG TAB PO SCH (08:00)
[2020-04-02] MEDS: DOCUSATE 100 MG CAP PO SCH (08:00)
[2020-04-02] MEDS: TIMOLOL 0.5% OPHTH DROPS 5 ML BTL BOTH EYES SCH (08:01)
[2020-04-02] MEDS: SODIUM CHLORIDE 0.9% 1,000 ML IV SCH (08:01)
[2020-04-02] MEDS ORDERED: METOPROLOL TARTRATE 50 MG TAB PO SCH (09:30)
[2020-04-02 11:46] VITALS: BP 138/74; PULSE 73; RESP 16; TEMP 97.6
--- NOTE | 2020-04-02 12:29 | PN ---
PROGRESS NOTE Mr. Garcia underwent ablation of an accessory pathway for his AV jasmyn reentry tachycardia, successful. He is doing well. His right groin has a small area of ecchymosis, no hematoma. Vitals are stable, maintaining sinus rhythm, S1, S2 heard normally. Lungs are clear, abdomen and lower extremity exam unchanged. This patient has diabetes, also has history of CAD and stenting and orbital atherectomy of LAD performed on this admission. We will send him home on Plavix 75 mg daily, Eliquis 5 mg b.i.d. and other medications, including statins. I will see him in the office in a week and make further recommendations. We will discontinue Eliquis after maybe 2 weeks or so and go back to dual antiplatelet therapy. This was discussed with the patient at length. Vitals are stable. Physical exam, there are no new significant findings. MMODL / IJN: [id number] /
[2020-04-02] MEDS ORDERED: APIXABAN 5 MG TAB PO SCH (21:00)
--- NOTE | 2020-04-03 08:36 | P.DS ---
Providers Date of admission: 03/25/20 12:32 Expected date of discharge: 04/02/20 Attending physician: Tanya Oseguera Consults: 03/25/20 12:32 Consult Physician Urgent Consulting Provider: Jerman Huang Consult Reason/Comments: SVT, elevated troponin Do you want consulting provider notified?: Yes 03/26/20 09:54 Consult Physician Routine Consulting Provider: Roc Delarosa Consult Reason/Comments: SVT, ablation Do you want consulting provider notified?: Yes 03/26/20 13:34 Consult Physician Routine Consulting Provider: [facility] Consult Reason/Comments: Post Interventional patient Do you want consulting provider notified?: Already Contacted Primary care physician: Natalia Stone [facility] Course: Final diagnosis Acute non-ST segment elevation myocardial infarction, status post cardiac catheterization and stenting Supraventricular tachycardia, paroxysmal on verapamil, EP study and status post ablation Mild hypovolemic hyponatremia CAD history Diabetes mellitus type 2 Gastroesophageal reflux disease Hyperlipidemia History of peripheral vascular disease Hyponatremia, mild anemia, normocytic anemia of chronic disease Full code Discharge disposition Patient is being discharged in a stable condition with guarded prognosis to home. Patient will follow-up with Dr. Stone in the outpatient setting upon discharge. Patient also instructed to follow-up with Dr. Sulma Huang cardiology in the outpatient setting. Patient will continue with Eliquis along with Plavix upon discharge. Total time taken is greater than 35 minutes. History of present illness This is a 75-year-old male who was recently admitted with acute non-ST segment myocardial infarction and was being closely monitored. Cardiology was following. Patient recently underwent stenting to the LAD during cardiac catheterization and was noted to have SVT runs on the cook chill technician and underwent EP study and ablation with Dr. Delarosa. Cardiology also adjusted medications and increased metoprolol and patient will be maintained on Plavix and Eliquis in the outpatient setting. Patient will follow-up with Dr. Huang in the outpatient setting as discussed and scheduled next week. Currently no reports of chest pain, shortness of breath, or palpitations. Patient is afebrile. No reports of nausea or vomiting and patient is tolerating diet. Patient will be discharged home today. On exam vital signs are stable. Temp is 97.6F, pulse is 73, respirations are 16, blood pressure is 138/74, oxygen saturation is 98% on room air. Cardio S1, S2 are muffled. Respiratory system shows diminished breath sounds at the bases with no wheezing or rhonchi noted. Abdomen is soft and nontender. Nervous system shows no focal deficits. Please refer to medication reconciliation sheet for a list of medications. Patient Condition at Discharge: Fair Plan - Discharge Summary Discharge Rx Participant: Yes New Discharge Prescriptions: New Apixaban [Eliquis] 5 mg PO BID 30 Days #60 tab Atorvastatin [Lipitor] 80 mg PO DAILY 30 Days #30 tab Metoprolol Tartrate [Lopressor] 50 mg PO BID 30 Days #60 tab Clopidogrel [Plavix] 75 mg PO DAILY 30 Days #30 tab Continue Cyanocobalamin (Vitamin B-12) [Vitamin B-12] 1,000 mcg PO DAILY Tamsulosin HCl [Flomax] 0.4 mg PO DAILY Pioglitazone HCl 15 mg PO DAILY Bicalutamide [Casodex] 50 mg PO DAILY Latanoprost/Pf [Latanoprost 0.005% Eye Drop] 1 drop BOTH EYES HS Timolol 0.5% Ophth Soln [Timoptic 0.5% Ophth Soln] 1 drop BOTH EYES DAILY Canagliflozin [Invokana] 300 mg PO DAILY Cholecalciferol [Vitamin D3 (25 Mcg = 1000 Iu)] 1,000 unit PO DAILY Exenatide Microspheres [Bydureon Pen] 2 mg SQ MO INSULIN ASPART (NovoLOG) [NovoLOG (formulary)] 10 unit SQ AC-TID Insulin Glargine,Hum.rec.anlog [Lantus Solostar] 40 unit SQ DAILY metFORMIN HCL [Glucophage] 1,000 mg PO AC-BID Calcium Carbonate/Vitamin D3 [Calcium 500-Vit D3 600 Tablet] 1 tab PO DAILY Discontinued lisinopriL [Zestril] 5 mg PO DAILY Aspirin EC [Ecotrin Low Dose] 162 mg PO DAILY Rosuvastatin Calcium 20 mg PO DAILY #30 tab Metoprolol Tartrate [Lopressor] 50 mg PO BID 30 Days #60 tab Verapamil HCl [Verapamil ER] 180 mg PO DAILY Discharge Medication List Cyanocobalamin (Vitamin B-12) [Vitamin B-12] 1,000 mcg PO DAILY 10/04/16 [History] Bicalutamide [Casodex] 50 mg PO DAILY 01/14/20 [History] Latanoprost/Pf [Latanoprost 0.005% Eye Drop] 1 drop BOTH EYES HS 01/14/20 [History] Pioglitazone HCl 15 mg PO DAILY 01/14/20 [History] Tamsulosin HCl [Flomax] 0.4 mg PO DAILY 01/14/20 [History] Timolol 0.5% Ophth Soln [Timoptic 0.5% Ophth Soln] 1 drop BOTH EYES DAILY 01/14/20 [History] Canagliflozin [Invokana] 300 mg PO DAILY 02/14/20 [History] Cholecalciferol [Vitamin D3 (25 Mcg = 1000 Iu)] 1,000 unit PO DAILY 02/14/20 [History] Exenatide Microspheres [Bydureon Pen] 2 mg SQ MO 02/14/20 [History] INSULIN ASPART (NovoLOG) [NovoLOG (formulary)] 10 unit SQ AC-TID 02/14/20 [History] Insulin Glargine,Hum.rec.anlog [Lantus Solostar] 40 unit SQ DAILY 02/14/20 [History] metFORMIN HCL [Glucophage] 1,000 mg PO AC-BID 02/14/20 [History] Calcium Carbonate/Vitamin D3 [Calcium 500-Vit D3 600 Tablet] 1 tab PO DAILY 03/25/20 [History] Apixaban [Eliquis] 5 mg PO BID 30 Days #60 tab 04/02/20 [Rx] Atorvastatin [Lipitor] 80 mg PO DAILY 30 Days #30 tab 04/02/20 [Rx] Clopidogrel [Plavix] 75 mg PO DAILY 30 Days #30 tab 04/02/20 [Rx] Metoprolol Tartrate [Lopressor] 50 mg PO BID 30 Days #60 tab 04/02/20 [Rx] Follow up Appointment(s)/Referral(s): Jerman Huang MD [STAFF PHYSICIAN] - 04/10/20 10:30 am Natalia Stone MD [Primary Care Provider] - 04/08/20 11:00 am Patient Instructions/Handouts: Supraventricular Tachycardia (DC), Cardiac Ablation (DC) Activity/Diet/Wound Care/Special Instructions: Activity Limited until follow-up Continue current heart healthy diet Follow-up with primary care provider upon discharge Follow-up with cardiology as discussed and scheduled Continue to monitor blood sugars and keep a diary for primary care follow-up Discharge Disposition: HOME SELF-CARE
== END 2020-04-02 12:49 | disposition home or self-care (01) | DRG 273 ==
LOC: EC 10:12 → 3SCARD 12:32
PROVIDERS: ADMIT Internal Medicine; ATTEND Internal Medicine
PROC: 027035Z Dilation of Coronary Artery, One Artery with Two Drug-eluting Intraluminal Devices, Percutaneous Approach (ICD-10-PCS; 2020-03-25)
PROC: B2111ZZ Fluoroscopy of Multiple Coronary Arteries using Low Osmolar Contrast (ICD-10-PCS; 2020-03-25)
PROC: 4A023N7 Measurement of Cardiac Sampling and Pressure, Left Heart, Percutaneous Approach (ICD-10-PCS; 2020-03-25)
PROC: X2C0361 Extirpation of Matter from Coronary Artery, One Artery using Orbital Atherectomy Technology, Percutaneous Approach, New Technology Group 1 (ICD-10-PCS; 2020-03-25)
PROC: 02583ZZ Destruction of Conduction Mechanism, Percutaneous Approach (ICD-10-PCS; principal; 2020-04-01 07:15)
PROC: 4A023FZ Measurement of Cardiac Rhythm, Percutaneous Approach (ICD-10-PCS; principal; 2020-04-01 07:15)
PROC: 02K83ZZ Map Conduction Mechanism, Percutaneous Approach (ICD-10-PCS; principal; 2020-04-01 07:15)
PROC: 4A0234Z Measurement of Cardiac Electrical Activity, Percutaneous Approach (ICD-10-PCS; principal; 2020-04-01 07:15)
DX: I47.1 Supraventricular tachycardia (principal); I21.4 Non-ST elevation (NSTEMI) myocardial infarction; E87.1 Hypo-osmolality and hyponatremia; M31.30 Wegener's granulomatosis without renal involvement; I49.3 Ventricular premature depolarization; I67.1 Cerebral aneurysm, nonruptured; D63.8 Anemia in other chronic diseases classified elsewhere; E11.51 Type 2 diabetes mellitus with diabetic peripheral angiopathy without gangrene; E86.1 Hypovolemia; I11.9 Hypertensive heart disease without heart failure; I48.91 Unspecified atrial fibrillation; E78.5 Hyperlipidemia, unspecified; H91.93 Unspecified hearing loss, bilateral; I25.10 Atherosclerotic heart disease of native coronary artery without angina pectoris; K21.9 Gastro-esophageal reflux disease without esophagitis; N40.0 Benign prostatic hyperplasia without lower urinary tract symptoms; G47.33 Obstructive sleep apnea (adult) (pediatric); H26.9 Unspecified cataract; H40.9 Unspecified glaucoma; M19.90 Unspecified osteoarthritis, unspecified site; R32 Unspecified urinary incontinence; Z79.4 Long term (current) use of insulin; Z79.82 Long term (current) use of aspirin; Z79.899 Other long term (current) drug therapy; Z86.73 Personal history of transient ischemic attack (TIA), and cerebral infarction without residual deficits; Z87.891 Personal history of nicotine dependence; Z96.653 Presence of artificial knee joint, bilateral; Z91.018 Allergy to other foods; Z99.89 Dependence on other enabling machines and devices; Z87.440 Personal history of urinary (tract) infections; Z92.3 Personal history of irradiation; Z85.46 Personal history of malignant neoplasm of prostate; Z85.89 Personal history of malignant neoplasm of other organs and systems; Z90.49 Acquired absence of other specified parts of digestive tract; Z95.5 Presence of coronary angioplasty implant and graft; Z98.890 Other specified postprocedural states; Z98.52 Vasectomy status; Z90.89 Acquired absence of other organs; Z80.3 Family history of malignant neoplasm of breast; Z80.42 Family history of malignant neoplasm of prostate; Z82.3 Family history of stroke
CPT/HCPCS: 36415; 71046; 80048; 80053; 80061; 82550; 83735; 84443; 84484; 85025; 85027; 85610; 85730; 93005; 93458; 93620; 93623; 96374; 99291

== ENCOUNTER → 2021-06-11 | Outpatient (CLI) | payer MEDICARE | END | disposition home or self-care (01) | LOC: LABWHC1 12:20 | PROVIDERS: ATTEND Internal Medicine | DX: Z20.822 Contact with and (suspected) exposure to COVID-19 (principal); R05.9 Cough, unspecified | CPT/HCPCS: U0003; C9803; U0005 ==